=== PATIENT | female | born 1975 | race Caucasian/White ===

== ENCOUNTER 2019-12-06 00:57 | Day surgery (SDC) | payer OTHER, SELFPAY ==
[2019-11-24 10:38] VITALS: BMI 28.8
[2019-12-06] VITALS (10 sets, daily range): BP systolic 85–129; BP diastolic 46–85; PULSE 58–76; RESP 10–20; TEMP 36.2–36.8; O2SAT 94–99
--- NOTE | 2019-12-06 07:30 | WPDHPUPDATE1 ---
History and Physical Update Update Date/Time: 12/06/19 07:30 History and Physical has been reviewed, including an updated exam of the patient. There are NO changes in the patient's condition. Risks, benefits, and alternatives have been discussed and questions answered. Patient agrees to proceed with procedure.
[2019-12-06] MEDS: LACTATED RINGERS 1,000 ML 30 ML IV CONT ×2 (11:55→14:53)
--- NOTE | 2019-12-06 12:01 | P.PNAN_ITS ---
Anes - Initial Pre Proc Eval Procedure: Operation Date: 12/06/19 13:30 Proposed Procedures p Left Knee Arthroscopy, Proceed As Indicated - Cecil Polo MD Date/Time: 12/06/19 12:01 Surgeon: Cecil Polo MD Pre Op Diagnosis: Lt Medial Meniscus Posterior Horn Derangement Patient Data Age: 44 Gender: F Height: 5 ft 4 in Weight: 79.3 kg Allergies Allergy/AdvReac Type Severity Reaction Status Date / Time erythromycin base Allergy Mild Flushing Verified 12/06/19 11:34 MACROLIDES Allergy Severe Hives Uncoded 12/06/19 11:34 Home Medications Medication Instructions Recorded Confirmed Type cholecalciferol (vitamin D3) 1,250 1,250 mcg PO WEEKLY 11/15/19 12/06/19 History mcg (50,000 unit) tablet Ds-[id number] 2 ml SUBLINGUAL BID 11/24/19 History albuterol sulfate 2.5 mg INHALATION DIRECTED PRN 11/24/19 12/06/19 History ondansetron HCl 8 mg PO Q8H PRN 11/24/19 11/24/19 History progesterone micronized 100 mg 200 mg PO QPM #60 cap 11/27/19 12/06/19 Rx capsule Patient hx anesthesia problems: none Family hx anesthesia problems: none PMFSH Past Medical History Medical History Anxiety Chronic nausea COPD (chronic obstructive pulmonary disease) PUD (peptic ulcer disease) Family History Family History Grandparent Diabetes mellitus Hypertension Family history of cardiovascular disease Cerebrovascular accident Family history of neuropathy Mother Hypertension Family history of cardiovascular disease Cerebrovascular accident Other Family history of arthritis Family history of seizure disorder Social History Social History Smoking status: Former smoker Second hand tobacco smoke exposure: No Alcohol intake: current Anes - Eval Final PreProcedure Day of Procedure 12/06/19 12:01 Patient weight: obese Heart: regular rate and rhythm Lungs: clear to auscultation Airway: Mallampati scale class II Neurological: alert and oriented Last oral intake: >/= 8 hours ASA classification: III Emergent: no Anesthetic plan: proceed Anesthesia type and monitoring: general LMA and standard monitoring Informed Consent: The patient's anesthetic plan and its attendant risks and b enefits were discussed with the patient/family/POA. Questions were solicited and answers provided to the satisfaction of the patient/family/POA.
[2019-12-06] MEDS: CELECOXIB 200 MG CAPSULE PO (12:04)
--- NOTE | 2019-12-06 13:38 | SUR.PREOP ---
Up to bathroom.
[2019-12-06] MEDS: ceFAZolin 2 GM/D5W 50 ML 2 GM/50 ML BAG IVPB (13:49)
--- NOTE | 2019-12-06 14:53 | PM.OP ---
Procedure Note - Brief Procedure Note - Brief Date of procedure: 12/06/19 Pre-op diagnosis: Lt Medial Meniscus Posterior Horn Derangement Post-op diagnosis: other (chondromalcia patella and medial femoral condyle, chondral defect latreal trochlea left knee) Procedure performed: LEFT KNEE SCOPE WITH ABRASION ARTHROPLASTY AND CHONDROPLASTY Anesthesia: GETA Surgeon: Cecil Polo MD Estimated blood loss (mL): 10 Complications: No immediate complications Condition: stable Disposition: PACU
--- NOTE | 2019-12-06 18:01 | OP_ITS ---
DATE OF PROCEDURE: 12/06/2019 PREOPERATIVE DIAGNOSIS: Left knee medial meniscus tear, chondromalacia of the patella. POSTOPERATIVE DIAGNOSIS: Chondromalacia of the patella and chondromalacia of the medial femoral condyle and chondral defect of the left lateral trochlea. PROCEDURE: 1. Left knee arthroscopy with abrasion arthroplasty/microfracture of left lateral femoral condyle/trochlea. 2. Chondroplasty of the medial femoral condyle. ANESTHESIA: General. COMPLICATION: None. INDICATIONS: This is a 44-year-old female, who has a long history of left knee pain. She has had problems in the past with her patella, now her pain was found to be in the medial compartment and in the patellofemoral region. She was unable to acquire an MRI due to financial reasons, so diagnostic arthroscopy was scheduled. This was after multiple attempts of controlling her pain nonoperatively such as with medications and physical therapy. DESCRIPTION OF PROCEDURE: The patient was taken to the operating room in stable condition and placed in supine position. General anesthesia was induced and the left lower extremity was prepped and draped sterilely from the toes to the thigh. Superomedial portal used for an outflow cannula. Inferolateral portal was used for the camera. The camera was introduced. There was grade 3 chondromalacia to the patella. There was no significant chondromalacia in the trochlear groove, but just posterior to the lateral trochlea, there was a large chondral defect. The medial compartment was entered. There was grade 3 chondromalacia to the medial femoral condyle. There was no tear to the medial meniscus. The ACL was identified and it was intact. The lateral compartment was entered. There was no significant chondromalacia to the lateral compartment and there was no lateral meniscus tear. We returned to the medial compartment and then a medial portal was performed and a shaver was entered into the medial compartment and a chondroplasty was performed of the medial femoral condyle until there was a smooth cartilage, and then the meniscus was checked once again and there was no tear apparent to the medial meniscus. Next, then attention was taken to the patella and the patella underwent chondroplasty until there was a nice smooth surface. Next, the edges of the chondral defect on the lateral trochlea/femoral condyle was debrided with a shaver and then a [place] pick was entered and an abrasion arthroplasty was performed until there was good bleeding bone observed. Multiple holes were performed. Once that was performed then the knee joint was irrigated thoroughly. The wounds were approximated 4 nylon suture. Sterile dressing was applied. The patient then was extubated. Susana I MT: [place]
== END 2019-12-06 17:20 | disposition home or self-care (01) ==
PROVIDERS: PCP Family Medicine; Visit Provider Orthopaedic Surgery
PROC: (CPT 29870; principal; 2019-12-06 13:30)
DX: M94.262 Chondromalacia, left knee (principal); M94.8X6 Other specified disorders of cartilage, lower leg; J44.9 Chronic obstructive pulmonary disease, unspecified; K27.9 Peptic ulcer, site unspecified, unspecified as acute or chronic, without hemorrhage or perforation; F41.9 Anxiety disorder, unspecified; R11.0 Nausea; Z87.891 Personal history of nicotine dependence; E66.9 Obesity, unspecified; Z68.30 Body mass index [BMI] 30.0-30.9, adult
CPT/HCPCS: 29879; A9270; J0690; J1100; J2250; J2405; J2704; J3010; J7120

== ENCOUNTER 2021-02-20 14:56 | Outpatient (CLI) | payer OTHER, SELFPAY ==
--- NOTE | ~2021-02-20 | MM_ITS ---
EXAMINATION: MM screening grzegorz BI w saba HISTORY: Screening mammogram TECHNIQUE: Craniocaudal and mediolateral oblique 3-D tomosynthesis images were obtained and synthetic 2-D images were generated. CAD analysis was submitted and interpreted. COMPARISON: No prior mammogram is available for comparison at this institution. BREAST PARENCHYMAL COMPOSITION: There are scattered areas of fibroglandular density. FINDINGS: There is no evidence of suspicious mass, calcification, or architectural distortion to sugg est malignancy in either breast. There has been no suspicious interval change. IMPRESSION: 1. No mammographic evidence of malignancy. 2. Recommend routine screening mammography in one year. BI-RADS Category 1: Negative Reviewed, dictated and finalized at location A.
== END 2021-02-20 14:57 | disposition home or self-care (01) ==
PROVIDERS: PCP Family Medicine; Visit Provider Family Medicine
DX: Z12.31 Encounter for screening mammogram for malignant neoplasm of breast (principal)
CPT/HCPCS: 77063; 77067

== ENCOUNTER 2021-02-24 14:10 | Outpatient (CLI) | payer OTHER, SELFPAY ==
--- NOTE | ~2021-02-24 | CT_ITS ---
EXAMINATION:CT diagnostic chest w con DATE: 02/24/2021 15:16 INDICATION: Pulmonary nodule. TECHNIQUE: Computed tomography (CT) of the chest was performed with 75 mL Omnipaque 350 intravenous c ontrast. Automated exposure control and iterative reconstruction technique were employed. The dose-le ngth product (DLP) was 247.14 mGy-cm. COMPARISON: None. FINDINGS: There is mild scarring at the lung apices. There is a 3 mm nodule in left lower lobe. There is a 3 mm nodule in right upper lobe. No pleural effusion. The heart size is normal. No pericardial effusion. There are changes of cholecystectomy. There is mild thoracic spondylosis. IMPRESSION: 1. Small pulmonary nodules, likely benign. Reviewed, dictated and finalized at location A.
== END 2021-02-24 14:11 ==
PROVIDERS: Visit Provider Surgery
DX: R91.8 Other nonspecific abnormal finding of lung field (principal)
CPT/HCPCS: 71260; Q9967

== ENCOUNTER → 2021-03-08 00:28 | Outpatient (CLI) | payer OTHER, SELFPAY ==
[2021-03-08 19:43] LABS: SARS-CoV-2 RNA PCR Negative
== END ==
PROVIDERS: Visit Provider Surgery
DX: Z01.812 Encounter for preprocedural laboratory examination (principal); Z20.822 Contact with and (suspected) exposure to COVID-19
CPT/HCPCS: C9803; U0003; U0005

== ENCOUNTER 2021-03-12 02:58 | Day surgery (SDC) | payer OTHER, SELFPAY ==
[2021-02-27 15:05] VITALS: BMI 26.8
--- NOTE | 2021-03-11 15:24 | WPDANESEPPF ---
Anes - Initial Pre Proc Eval Procedure: Operation Date: 03/12/21 13:30 Proposed Procedures p Excisional Biopsy Of Right Upper Quadrant Subcutaneous Mass, Excisional Biopsy Left Breast Mass - Chloe Lara MD Date/Time: 03/11/21 15:24 Surgeon: Chloe Lara MD Pre Op Diagnosis: right upper quadrant subq mass Patient Data Age: 45 Gender: F Height: 1.63 m Weight: 70.9 kg Allergies Allergy/AdvReac Type Severity Reaction Status Date / Time erythromycin base Allergy Mild Flushing Verified 02/27/21 14:57 hydromorphone [From Dilaudid] Allergy Flushing, Verified 02/27/21 14:58 HIVES, N/V MACROLIDES Allergy Severe Hives Uncoded 02/27/21 14:57 Home Medications Medication Instructions Recorded Confirmed Type Ds-E1e2 2 ml SUBLINGUAL BID 11/24/19 02/27/21 History albuterol sulfate 2.5 mg INHALATION DIRECTED PRN 11/24/19 02/27/21 History aspirin 325 mg PO DAILY #14 tablet 12/06/19 02/27/21 Rx esterified estrogens 1 tab-cap PO HS 05/03/20 02/27/21 History testosterone undecanoate See Rx Instructions .ROUTE .COMPLEX 05/03/20 02/20/21 History permethrin 5 % topical cream 1 applic TOPICAL ONCE #60 gm 07/10/20 02/27/21 Rx progesterone micronized 100 mg 200 mg PO QPM #60 cap 12/03/20 02/27/21 Rx capsule cholecalciferol (vitamin D3) 1,250 1,250 mcg PO MONTHLY #14 tablet 12/05/20 02/27/21 Rx mcg (50,000 unit) tablet phentermine 37.5 mg capsule 37.5 mg PO DAILY #30 cap 01/17/21 02/27/21 Rx cetirizine 10 mg capsule 10 mg PO DAILY PRN 02/10/21 02/27/21 History ondansetron HCl 8 mg tablet 8 mg PO Q8H PRN #20 tablet 02/11/21 02/27/21 Rx vitamin Q95-[id number] B1 1 ml IM WEEKLY 02/27/21 02/27/21 History Patient hx anesthesia problems: none Family hx anesthesia problems: none PMFSH Past Medical History Medical History Anxiety Chronic nausea COPD (chronic obstructive pulmonary disease) PUD (peptic ulcer disease) Weight gain Surgical History Surgical History H/O: hysterectomy History of cholecystectomy History of knee surgery Family History Family History Grandparent Diabetes mellitus Hypertension Family history of cardiovascular disease Cerebrovascular accident Family history of neuropathy Mother Hypertension Family history of cardiovascular disease Cerebrovascular accident Uterine cancer Father Diabetes mellitus Heart disease Cerebrovascular accident Hypertension Other Family history of arthritis Family history of seizure disorder Social History Social History Smoking status: Former smoker Tobacco type: cigarettes Second hand tobacco smoke exposure: No Additional smoking assessment comments: STATES [employer] FOR 7 YEARS, 1PK EVERY 2-3 WEEKS, QUIT 2010 Alcohol intake: current Substance use: never Substance use type: does not use Living arrangements: with family Spiritual care concerns: No Anes - Eval Final PreProcedure Day of Procedure 03/11/21 15:24 Patient weight: overweight Heart: regular rate and rhythm Lungs: clear to auscultation and normal air movement Airway: Mallampati scale class II Neurological: alert and oriented Last oral intake: >/= 8 hours ASA classification: III Emergent: no Anesthetic plan: proceed Anesthesia type and monitoring: general LMA Informed Consent: The patient's anesthetic plan and its attendant risks and benefits were discussed with the patient/family/POA. Questions were solicited and answers provided to the satisfaction of the patient/family/POA.
[2021-03-12] VITALS (9 sets, daily range): BP systolic 104–128; BP diastolic 61–89; PULSE 75–100; RESP 12–20; TEMP 36.3–36.6; O2SAT 96–100
[2021-03-12] MEDS: LACTATED RINGERS 1,000 ML 30 ML IV CONT (12:21)
[2021-03-12] MEDS: ONDANSETRON INJ 4 MG/2 ML VIAL IV PUSH (12:22)
--- NOTE | 2021-03-12 12:54 | WPDHPUPDATE1 ---
History and Physical Update Update Date/Time: 03/12/21 12:54 History and Physical has been reviewed, including an updated exam of the patient. There are NO changes in the patient's condition. Risks, benefits, and alternatives have been discussed and questions answered. Patient agrees to proceed with procedure. Pt also notes new, painful mass in epigastrium. Mass is approx 2x2 cm and TTP. Pt would like excision of this area and I have agreed to proceed.
[2021-03-12] MEDS: ceFAZolin 2 GM/D5W 50 ML 2 GM/50 ML BAG IVPB (13:22)
[2021-03-12] MEDS: LIDO 1%/EPINEPHRINE 1:100,000 50 ML VIAL 30 ML INFILTRATE (13:30)
--- NOTE | 2021-03-12 14:22 | PM.PROC ---
Procedure Note - Detailed Date of procedure: 03/12/21 Pre-op diagnosis: right upper quadrant subq mass Left breast mass, right upper quadrant abdominal wall subcutaneous mass, epigastric abdominal wall subcutaneous mass Post-op diagnosis: same Procedure performed: excisional biopsy left breast mass measuring approximately 2 x 1 cm, right upper quadrant abdominal wall subcutaneous mass measuring approximately 3 x 2 cm, epigastric abdominal wall subcutaneous mass measuring approximately 2 x 1 cm Description of procedure: The patient was taken to the operating room placed in the supine position. After induction of general anesthesia, the patient was prepped and draped in the normal sterile fashion. Time-out was then done to verify patient's identity, as well as the procedure being performed. I began by localizing the areas over all 3 of these masses. I began in the left breast by making an incision over this mass which was located at approximately the 4 o'clock position. This was easily palpable and noted to be just under the dermis. Upon making the incision through the dermis, I was able to locate this mass that looked to be a lipoma. It measured approximately 2 x 1 cm. I was able to excise this full. Once fully excised, I gained hemostasis with the Bovie cautery. I then closed the incision with 4 Monocryl subcuticular suture. I then made an incision over the mass in the right upper quadrant. Again just under the dermis there was a well-circumscribed mass in the subcutaneous tissue that measured approximately 3 x 2 cm. This was again excised in full and looked to be a lipoma. Hemostasis was gained with Bovie cautery and the incision was closed with 4 O Monocryl subcuticular suture. I then made an incision over the epigastric mass. Was carried down through the dermis into the subcutaneous tissue. This looked to be a multilobular lipoma the largest of which measured approximately 2 x 1 cm. This area was fully excised and hemostasis was gained with Bovie cautery. I then closed this incision with 4 Monocryl subcuticular suture. Dermabond was placed on all wounds. The patient tolerated these procedures well and was extubated in the operating room postop. She will be sent to the recovery room in stable condition. Anesthesia: GLMA and local Surgeon: Chloe Lara MD Estimated blood loss (mL): 10 Drains: No Packing: No Pathology: yes Complications: No immediate complications Condition: stable Disposition: PACU Findings: multiple subcutaneous masses as noted above most likely lipoma
[2021-03-12] MEDS: fentaNYL CITRATE INJ (*CRX) 100 MCG/2 ML VIAL 25 MCG IV PUSH ×4 (14:29→14:53)
[2021-03-12] MEDS: oxyCODONE HCL (*CRX) 5 MG TAB IR PO (15:39)
== END 2021-03-12 16:16 | disposition home or self-care (01) ==
PROVIDERS: PCP Family Medicine; Visit Provider Surgery
PROC: (CPT 21555; principal; 2021-03-12 13:30)
DX: D17.1 Benign lipomatous neoplasm of skin and subcutaneous tissue of trunk (principal); J44.9 Chronic obstructive pulmonary disease, unspecified; K27.9 Peptic ulcer, site unspecified, unspecified as acute or chronic, without hemorrhage or perforation; F41.9 Anxiety disorder, unspecified; Z87.891 Personal history of nicotine dependence; Z79.51 Long term (current) use of inhaled steroids; Z79.82 Long term (current) use of aspirin
CPT/HCPCS: 21555; 22903; 22902; 88304; 88307; A9270; C9803; J0690; J1100; J2250; J2405; J2704; J3010; J7120; U0003; U0005

== ENCOUNTER → 2021-03-28 08:27 | Outpatient (CLI) | payer OTHER, SELFPAY ==
--- NOTE | ~2021-03-28 | CT_ITS ---
EXAMINATION: CT abdomen wo con EXAM DATE: 03/28/2021 08:39 INDICATION: K43.2 - Incisional hernia without obstruction or gangrene . Nausea, constipation. 2 abdom inal mass is removed 2 weeks ago. TECHNIQUE: Spiral CT of the abdomen was performed without contrast. Axial, coronal and sagittal marcelo ges of the abdomen were reviewed. The dose-length product (DLP) for this examination was 422.86 mGy- cm. The exposure was tailored according to patient size (auto mA exposure control), and iterative re construction (ASIR) was used as additional dose reduction technique. There is no prior study for com leonel. FINDINGS: There are 2 regions of induration along the upper abdomen, could be locations of mass resec tions given history provided above. No abdominal wall hernia. The liver, spleen, adrenal glands and pancreas are unremarkable. Gallbladder not identified, patient likely has had cholecystectomy. Ther e is no nephrolithiasis or hydronephrosis. There is no retroperitoneal lymphadenopathy. The stomach and small bowel are unremarkable. There is expected amount of colonic stool. No free i ntraperitoneal gas. The heart is normal in size. There are no pericardial or pleural effusions. T he lung bases are unremarkable. The bones are unremarkable. IMPRESSION: Two regions of anterior upper abdominal subcutaneous induration, probably surgical sites. Reviewed, dictated and finalized at location B. IMPRESSION: Two regions of anterior upper abdominal subcutaneous induration, pr obably surgical sites.
== END ==
PROVIDERS: Visit Provider Surgery
DX: K43.2 Incisional hernia without obstruction or gangrene (principal)
CPT/HCPCS: 74150

== ENCOUNTER 2021-04-04 09:29 | Outpatient (CLI) | payer OTHER, SELFPAY ==
[2021-04-04 19:58] LABS: Basophils Absolute Auto 0.1 K/mm3 (0.0-0.1); Basophils Percent Auto 1.6 % (0.2-1.2); Eosinophils Absolute Auto 0.3 K/mm3 (0-0.3); Eosinophils Percent Auto 5.2 % (0-4.4); Hematocrit 44.4 % (37.0-47.0); Hemoglobin 14.2 g/dL (12.0-15.0); Immature Granulocyte Absolute 0.03 K/mm3 (0.00-0.031); Immature Granulocyte Percent A 0.5 % (0-0.5); Lymphocytes Absolute Auto 2.02 K/mm3 (0.9-3.2); Lymphocytes Percent Auto 35.3 % (18.3-44.2); Mean Corpuscular Hemoglobin 27.3 pg (26-34); Mean Corpuscular Volume 85.4 fl (80-100); Mean Platelet Volume 10.9 fl (7.4-10.4); Monocytes Absolute Auto 0.5 K/mm3 (0.1-0.6); Neutrophils Absolute Auto 2.8 K/mm3 (1.3-6.7); Neutrophils Percent Auto 49.4 % (45.5-73.1); Platelet Count Result 290 k/mm3 (150-375); Red Cell Distribution Width 12.1 % (11.5-14.5); White Blood Count 5.7 K/mm3 (4.5-10.0)
[2021-04-04 20:02] LABS: Add Urine Microscopic? NO; Appearance Urine Clear (Clear); Bilirubin Urine Negative (Negative); Blood Urine Negative (Negative); Color Urine Yellow (Yellow); Glucose Urine UA Negative (Negative); Ketones Urine Negative (Negative); Leukocyte Esterase Ur Negative LEU/UL (Negative); Nitrate Urine Negative (Negative); Protein Urine Negative (Negative); Specific Grav Ur 1.014 (1.001-1.035); Urobilinogen Urine Negative mg/dL (<2.0)
[2021-04-04 20:27] LABS: Free T4 Free Thyroxine 1.05 ng/mL (0.78-2.19); Vitamin D 25 Hydroxy 39.2 ng/mL
[2021-04-04 20:55] LABS: Alanine Aminotransferase 17 U/L (4-35); Albumin Level 4.3 g/dL (3.5-5.1); Alkaline Phosphatase 77 U/L (38-126); Anion Gap 7 mmol/L (8-16); Aspartate Amino Transferase 22 U/L (14-36); Bilirubin,Total 0.5 mg/dL (0.2-1.3); Blood Urea Nitrogen 21 mg/dL (7-17); Carbon Dioxide 29 mmol/L (22-30); Chloride 105 mmol/L (98-107); Cholesterol 224 mg/dL (0-200); Estimated Glomerular Filt Rate 59; Glucose 101 mg/dL (65-105); HDL Direct 75 mg/dL; Sodium 141 mmol/L (137-145); Triglycerides 83 mg/dL (<150)
[2021-04-04 21:06] LABS: LDL Cholesterol Direct 111 mg/dL
[2021-04-04 22:03] LABS: Vitamin B12 > 1000.0 pg/mL (239-931)
[2021-04-10 10:02] LABS: T3 Reverse 12 ng/dL (8-25)
[2021-04-10 17:33] LABS: Estradiol, Ultrasensitive 3 pg/mL
[2021-04-10 17:59] LABS: Testosterone Free 1.5 pg/mL (0.1-6.4); Testosterone Total 10 ng/dL (2-45)
[2021-04-10 20:20] LABS: FSH 59.7 mIU/mL (***); Triiodothyronine T3 Free 3.3 pg/mL (2.3-4.2)
[2021-04-10 20:30] LABS: Progesterone 0.2 ng/mL (***)
== END 2021-04-04 09:30 | disposition home or self-care (01) ==
LOC: ANHBWCLAB 09:30
PROVIDERS: PCP Family Medicine; Visit Provider Family Medicine
DX: E28.39 Other primary ovarian failure (principal); E66.3 Overweight; Z79.899 Other long term (current) drug therapy; Z82.62 Family history of osteoporosis; N99.89 Other postprocedural complications and disorders of genitourinary system; Z98.51 Tubal ligation status; G25.81 Restless legs syndrome
CPT/HCPCS: 36415; 80053; 80061; 81003; 82306; 82607; 82670; 82746; 83001; 84144; 84402; 84403; 84439; 84443; 84481; 84482; 85025

== ENCOUNTER 2021-08-29 11:56 | Outpatient (CLI) | payer OTHER, SELFPAY ==
[2021-08-29 21:01] LABS: Vitamin B12 > 1000.0 pg/mL (239-931)
[2021-09-02 07:31] LABS: Progesterone 0.5 ng/mL (***)
[2021-09-02 22:47] LABS: Testosterone Total 13 ng/dL (2-45)
[2021-09-04 19:27] LABS: Estrogen 158.1 pg/mL
== END 2021-08-29 11:57 | disposition home or self-care (01) ==
LOC: ANHBWCLAB 11:58
PROVIDERS: PCP Family Medicine; Visit Provider Family Medicine
DX: E28.39 Other primary ovarian failure (principal); E53.8 Deficiency of other specified B group vitamins
CPT/HCPCS: 36415; 82607; 82672; 84144; 84403

== ENCOUNTER 2021-09-24 10:14 | Outpatient (CLI) | payer OTHER, SELFPAY ==
--- NOTE | ~2021-09-24 | XR_ITS ---
EXAMINATION: XR heel LT min 2V DATE: 09/24/2021 10:30 INDICATION: Medial left heel pain 2 months post injury with laceration. TECHNIQUE: Axial and lateral views of the left calcaneus were obtained COMPARISON: None. FINDINGS: Bone alignment is normal. No fracture. Joint spaces are normal. No cortical erosions, periosteal reac tion or suspicious lytic or blastic bone lesions to suggest osteomyelitis. Soft tissues are unremarka ble. No radiopaque foreign bodies identified. IMPRESSION: 1. Negative left calcaneus radiographs. Reviewed, dictated and finalized at location A. ICATION LEAD
--- NOTE | ~2021-09-24 | XR_ITS ---
EXAMINATION: XR abdomen/kub 1V DATE: 09/24/2021 10:30 INDICATION: Bilateral lower abdominal pain. TECHNIQUE: A supine view of the abdomen was obtained. COMPARISON: CT abdomen 03/28/2021 FINDINGS: There are no dilated loops of bowel. There is a moderate volume of stool in the colon. Surg ical clips in the right upper quadrant are likely from cholecystectomy. There are phleboliths in the pelvis. IMPRESSION: 1. Normal bowel gas pattern. Reviewed, dictated and finalized at location A. GN ENGINEERING INTERN
[2021-09-24 19:48] LABS: Add Urine Microscopic? YES; Appearance Urine Clear (Clear); Bacteria Urine Trace /hpf; Bilirubin Urine Negative (Negative); Blood Urine 1+ (Negative); Color Urine Straw (Yellow); Glucose Urine UA Negative (Negative); Ketones Urine Negative (Negative); Leukocyte Esterase Ur 2+ LEU/UL (NEGATIVE); Mucus Urine Rare /lpf; Nitrate Urine Negative (Negative); Protein Urine Negative (Negative); RBC Urine 0-2 /hpf (0-2); Specific Grav Ur 1.008 (1.001-1.035); Squamous Epithelial Cell Urine Few /hpf (Few); Urobilinogen Urine Negative mg/dL (<2.0); WBC Urine 0-3 /hpf (0-3)
== END 2021-09-24 10:15 | disposition home or self-care (01) ==
LOC: ANHBWCLAB 10:17
PROVIDERS: PCP Family Medicine; Visit Provider Family Medicine
DX: M79.673 Pain in unspecified foot (principal); N39.0 Urinary tract infection, site not specified; R10.2 Pelvic and perineal pain
CPT/HCPCS: 73650; 74018; 81001; 87077; 87086; 87088

== ENCOUNTER 2021-10-09 07:51 | Outpatient (RCR) | payer OTHER, SELFPAY ==
[2021-10-09 10:12] VITALS: BP 122/85; PULSE 86; TEMP 37.1; O2SAT 97
[2021-10-09] MEDS: diphenhydrAMINE HCl CAP 25 MG CAPSULE PO (10:14)
[2021-10-09] MEDS: ACETAMINOPHEN 325 MG TABLET 650 MG PO (10:14)
[2021-10-09] MEDS: FAMOTIDINE 20 MG TABLET PO (10:14)
[2021-10-09 11:50] VITALS: BP 123/87
--- NOTE | 2021-10-10 09:02 | PC.NURSE ---
Called Ms Fagan and she stated she is feeling like she is swimming in fluid and having trouble breathing and is still coughing a lot. She said she called her PCP yesterday but he is on vacation and has no one covering him. I told her she needs to go to the ER, and she verbalized the understanding. She has no other questions at this time.
== END 2021-10-09 17:00 ==
LOC: AMCINF 07:51
PROVIDERS: PCP Family Medicine; Visit Provider Internal Medicine Hematology & Oncology
DX: U07.1 COVID-19 (principal); J44.9 Chronic obstructive pulmonary disease, unspecified
CPT/HCPCS: A9270; M0243; Q0244

== ENCOUNTER 2021-10-27 09:03 | Outpatient (CLI) | payer OTHER, SELFPAY ==
[2021-10-27 20:24] LABS: Lipase 155 U/L (23-300)
== END 2021-10-27 09:04 | disposition home or self-care (01) ==
LOC: ANHBWCLAB 09:05
PROVIDERS: PCP Family Medicine; Visit Provider Family Medicine
DX: R10.9 Unspecified abdominal pain (principal); R10.2 Pelvic and perineal pain; R11.0 Nausea
CPT/HCPCS: 36415; 83690

== ENCOUNTER → 2022-01-09 04:58 | Outpatient (CLI) | payer OTHER, SELFPAY ==
[2022-01-09 11:35] LABS: Influenza A QL RT-PCR Negative (Negative); Influenza B QL RT-PCR Negative (Negative); SARS-CoV-2 RNA PCR Negative
== END ==
PROVIDERS: PCP Family Medicine; Visit Provider Family Medicine
DX: R05.8 Other specified cough (principal); R50.9 Fever, unspecified; R91.1 Solitary pulmonary nodule; J44.9 Chronic obstructive pulmonary disease, unspecified; Z20.822 Contact with and (suspected) exposure to COVID-19
CPT/HCPCS: 87502; C9803; U0003; U0005

== ENCOUNTER 2022-01-13 09:38 | Outpatient (CLI) | payer OTHER, SELFPAY ==
--- NOTE | ~2022-01-13 | XR_ITS ---
EXAMINATION: XR chest 2V 01/13/2022 09:49 INDICATION: COPD. Shortness of breath. PROCEDURE: 2 view chest COMPARISON: 01/29/2010 FINDINGS: The lungs are clear. The cardiomediastinal silhouette is within normal limits. There are no pleural effusions. There is no pneumothorax suspected. IMPRESSION: 1: NO ACUTE CARDIOPULMONARY DISEASE. Reviewed, dictated and finalized at location A.
== END 2022-01-13 09:39 | disposition home or self-care (01) ==
PROVIDERS: PCP Family Medicine; Visit Provider Family Medicine
DX: J44.9 Chronic obstructive pulmonary disease, unspecified (principal); J06.9 Acute upper respiratory infection, unspecified
CPT/HCPCS: 71046

== ENCOUNTER 2022-05-27 09:06 | Outpatient (CLI) | payer OTHER, SELFPAY ==
[2022-05-27 20:57] LABS: Add Urine Microscopic? YES; Appearance Urine Cloudy (Clear); Bilirubin Urine Negative (Negative); Blood Urine 3+ (Negative); Color Urine Red (Yellow); Glucose Urine UA Negative (Negative); Ketones Urine Negative (Negative); Leukocyte Esterase Ur 1+ LEU/UL (NEGATIVE); Nitrate Urine Negative (Negative); Protein Urine 1+ mg/dL (Negative); Specific Grav Ur 1.015 (1.001-1.035); Urobilinogen Urine 0.2 mg/dL (<2.0); pH Urine 6.5 (5.0-9.0)
[2022-05-27 21:09] LABS: Bacteria Urine Trace /hpf; Mucus Urine Rare /lpf; RBC Urine >75 /hpf (0-2); Squamous Epithelial Cell Urine Occasional /hpf (Few); WBC Urine 16-20 /hpf (0-3)
[2022-05-27 21:10] LABS: Hematocrit 46.2 % (37.0-47.0); Hemoglobin 13.8 g/dL (12.0-15.0); Mean Corpuscular HGB Conc 29.9 g/dl (32-36); Mean Corpuscular Hemoglobin 24.9 pg (26-34); Mean Corpuscular Volume 83.2 fl (80-100); Platelet Count Result 285 k/mm3 (150-375); Red Blood Count 5.55 M/mm3 (4.2-5.4); Red Cell Distribution Width 14.4 % (11.5-14.5); White Blood Count 5.6 K/mm3 (4.5-10.0)
[2022-05-27 21:50] LABS: Alanine Aminotransferase 20 U/L (6-35); Albumin Level 4.5 g/dL (3.5-5.1); Alkaline Phosphatase 74 U/L (38-126); Anion Gap 11 mmol/L (8-16); Aspartate Amino Transferase 40 U/L (14-36); Bilirubin,Total 0.3 mg/dL (0.2-1.3); Blood Urea Nitrogen 16 mg/dL (7-17); Calcium 9.5 mg/dL (8.4-10.2); Carbon Dioxide 27 mmol/L (22-30); Chloride 101 mmol/L (98-107); Cholesterol 210 mg/dL (0-200); Estimated Glomerular Filt Rate > 60; Glucose 83 mg/dL (65-110); HDL Direct 62 mg/dL; Potassium 3.9 mmol/L (3.4-5.0); Sodium 139 mmol/L (137-145); Triglycerides 182 mg/dL (<150)
[2022-05-27 22:01] LABS: LDL Cholesterol Direct 104 mg/dL
[2022-05-30 11:24] LABS: Progesterone 0.3 ng/mL (***)
[2022-06-01 09:30] LABS: Testosterone Total 9 ng/dL (2-45)
[2022-06-02 15:46] LABS: Estrogen 114.9 pg/mL
[2022-06-05 03:56] LABS: Estradiol, Ultrasensitive 2 pg/mL
== END 2022-05-27 09:07 | disposition home or self-care (01) ==
PROVIDERS: PCP Family Medicine; Visit Provider Family Medicine
DX: E28.39 Other primary ovarian failure (principal); R31.9 Hematuria, unspecified; Z00.00 Encounter for general adult medical examination without abnormal findings
CPT/HCPCS: 36415; 80053; 80061; 81001; 82670; 82672; 84144; 84402; 84403; 85027

== ENCOUNTER 2022-05-27 12:44 | Outpatient (CLI) | payer OTHER, SELFPAY ==
--- NOTE | ~2022-05-27 | CT_ITS ---
EXAMINATION: CT abdomen pelvis w con DATE: 05/27/2022 13:08 INDICATION: Left lower quadrant abdominal pain. Gastrointestinal bleeding. TECHNIQUE: Computed tomography (CT) of the abdomen and pelvis was performed with 100 mL Omnipaque-300 intravenous contrast. Automated exposure control and iterative reconstruction technique were employe d. The dose-length product was 529.25 mGy-cm. COMPARISON: 03/28/2021 FINDINGS: Lung bases are clear. Heart size is normal. No pericardial or pleural effusion. Cholecystectomy clips at gallbladder fossa. Liver, pancreas, spleen, bilateral adrenal glands and and left kidney are norm al. Lateral film unchanged 1.5 cm cyst at the upper pole of the right kidney. There are few scattered clonic diverticula without adjacent inflammatory change to suggest diverticulitis. Small bowel and a ppendix are normal. Bladder is normal. The uterus is not identified and has likely been surgically re sected. No free intraperitoneal gas or fluid. Bones are unremarkable. IMPRESSION: 1. Mild diverticulosis. No acute intra-abdominal/pelvic process. Reviewed, dictated and finalized at location A.
== END 2022-05-27 12:45 | disposition home or self-care (01) ==
PROVIDERS: PCP Family Medicine; Visit Provider Family Medicine
DX: R10.32 Left lower quadrant pain (principal); K57.90 Diverticulosis of intestine, part unspecified, without perforation or abscess without bleeding
CPT/HCPCS: 74177; Q9967

== ENCOUNTER 2022-07-16 15:11 | Emergency (ER) | payer OTHER, SELFPAY ==
--- NOTE | 2022-07-16 15:13 | ED.SKABFB ---
HPI - Skin/Abscess/Foreign Bdy General Chief complaint: Skin/Abscess/Foreign Body Stated complaint: Hives all over Time Seen by Provider: 07/16/22 15:13 Source: patient and RN notes reviewed History of Present Illness HPI narrative: Patient is a 47-year-old female who presents the urgent care with complaints of hives all over. Patient states on July 03 she was hiking and she was covered in tick bites especially to the lower half of her body. Patient states she saw Dr. Lemos and she was given exactly 2 doses of doxycycline and placed on prednisone until the . Patient states that she woke up in hives again which improved with Benadryl and hydroxyzine. Patient states that today she now has a hives all over and is experience a headache, nausea, extreme fatigue, heavy arms and overall just not feeling well . It was verified with patient's pharmacy that she did in fact get only 2 tablets of doxycycline. Patient appears very fatigued but otherwise no acute distress noted. Patient aware of the plan of care. Some parts of this dictation were generated by voice recognition software and may contain typographical and/or grammatical inaccuracies. Related Data Home Medications Medication Instructions Recorded Confirmed aspirin 325 mg tablet 325 mg PO DAILY 06/24/22 06/24/22 Allergies Allergy/AdvReac Type Severity Reaction Status Date / Time erythromycin base Allergy Mild Flushing Verified 07/16/22 15:26 hydromorphone [From Dilaudid] Allergy Rash Verified 07/16/22 15:26 MACROLIDES Allergy Severe Hives Uncoded 07/16/22 15:26 Review of Systems Review of Systems: CONSTITUTIONAL: Denies fever, chills, or sweats. EYES: Denies visual changes, redness, or discharge. ENT: Denies rhinorrhea, congestion, sore throat, or otalgia. CARDIOVASCULAR: Denies chest pain, palpitations, or edema. RESPIRATORY: Denies cough or dyspnea. GASTROINTESTINAL: Reports of nausea GENITOURINARY: Denies dysuria or hematuria. SKIN: Reports of itchy raised hives all over MUSCULOSKELETAL: Denies back pain, joint pain. Reports of body aches NEUROLOGIC: Reports of extreme weakness All other systems reviewed are negative, except as documented in HPI. [facility] Past Medical History Medical History (Updated 07/16/22 @ 15:37 by Candi E. Springman, INTAKE RN) Abdominal pain Abdominal pain Acute pharyngitis, unspecified Animal scabies Ankle sprain Anxiety B12 deficiency Breast mass, left Bronchitis Chronic nausea Contact dermatitis COPD (chronic obstructive pulmonary disease) COVID-19 Encounter for surgical aftercare following surgery on the skin and subcutaneous tissue Family history of osteoporosis Fever Heel pain Hypoestrogenism Incisional hernia Left ankle pain Left ankle sprain Left knee pain Lipoma Lung nodule Mass of skin of abdomen MCL sprain of left knee Medial meniscus, posterior horn derangement Nausea Nausea Other residential (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 Overweight Pelvic pain Preventative health care Productive cough PUD (peptic ulcer disease) Strep throat Suprapubic pain, acute Umbilical pain URI (upper respiratory infection) UTI (urinary tract infection) Weight gain Surgical History Surgical History H/O excision of mass 03/12/21 excisional biopsy left breast mass measuring approximately 2 x 1 cm, right upper quadrant abdominal wall subcutaneous mass measuring approximately 3 x 2 cm, epigastric abdominal wall subcutaneous mass measuring approximately 2 x 1 cm H/O: hysterectomy History of abdominal surgery History of cholecystectomy History of knee surgery History of surgery cervix removed Family History Family History Grandparent Diabetes mellitus Hypertension Family history of cardiovascular disease Cerebrovascular accident Family history of neuropathy Mother Hypertension Family history of cardiovascular disease Cerebrovascul
[2022-07-16 15:15] VITALS: BP 131/87; PULSE 91; RESP 16; TEMP 36.8; O2SAT 99
== END 2022-07-16 15:31 | disposition short-term general hospital (02) ==
PROVIDERS: Emergency Provider Nurse Practitioner Family; PCP Family Medicine
DX: S80.862D Insect bite (nonvenomous), left lower leg, subsequent encounter (principal); S80.861D Insect bite (nonvenomous), right lower leg, subsequent encounter; W57.XXXD Bitten or stung by nonvenomous insect and other nonvenomous arthropods, subsequent encounter; R11.0 Nausea; R51.9 Headache, unspecified; R53.83 Other fatigue; Z87.891 Personal history of nicotine dependence; J44.9 Chronic obstructive pulmonary disease, unspecified; Z86.16 Personal history of COVID-19; Z79.82 Long term (current) use of aspirin
CPT/HCPCS: 99212; G0463

== ENCOUNTER 2022-07-16 16:02 | Emergency (ER) | payer OTHER, SELFPAY ==
[2022-07-16] VITALS (13 sets, daily range): BP systolic 120–155; BP diastolic 68–93; PULSE 77–99; RESP 18; TEMP 36.1; O2SAT 98–100
--- NOTE | ~2022-07-16 | XR_ITS ---
XR chest 2V DATE: 07/16/2022 16:44 INDICATION: Fatigue, weakness for one week. Previously bitten by 6. History of COPD. TECHNIQUE: PA and lateral views COMPARISON: 01/13/2022 PA and lateral chest FINDINGS: Normal heart size. No hilar or mediastinal enlargement. No pulmonary infiltrate or consolid ation, pleural effusion or pulmonary vascular congestion or pneumothorax. Status post cholecystectomy. Included skeletal structures are unremarkable. IMPRESSION: No active cardiopulmonary disease or significant change since 01/13/2022 Reviewed, dictated and finalized at location B. IMPRESSION: No active cardiopulmonary disease or significant change since 2021
[2022-07-16 17:01] LABS: Basophils Percent Auto 0.4 % (0.2-1.2); Eosinophils Absolute Auto 0.2 K/mm3 (0-0.3); Eosinophils Percent Auto 2.2 % (0-4.4); Hematocrit 40.7 % (37.0-47.0); Immature Granulocyte Absolute 0.03 K/mm3 (0.00-0.031); Immature Granulocyte Percent A 0.3 % (0-0.5); Lymphocytes Absolute Auto 2.62 K/mm3 (0.9-3.2); Lymphocytes Percent Auto 25.9 % (18.3-44.2); Mean Corpuscular HGB Conc 31.9 g/dl (32-36); Mean Corpuscular Hemoglobin 25.7 pg (26-34); Mean Corpuscular Volume 80.4 fl (80-100); Mean Platelet Volume 9.8 fl (7.4-10.4); Monocytes Absolute Auto 0.4 K/mm3 (0.1-0.6); Monocytes Percent Auto 3.8 % (2.6-8.5); Neutrophils Absolute Auto 6.8 K/mm3 (1.3-6.7); Neutrophils Percent Auto 67.4 % (45.5-73.1); Platelet Count Result 313 k/mm3 (150-375); Red Blood Count 5.06 M/mm3 (4.2-5.4); White Blood Count 10.1 K/mm3 (4.5-10.0)
[2022-07-16 17:14] LABS: Alanine Aminotransferase 21 U/L (6-35); Albumin Level 4.3 g/dL (3.5-5.1); Alkaline Phosphatase 86 U/L (38-126); Anion Gap 8 mmol/L (8-16); Aspartate Amino Transferase 24 U/L (14-36); Bilirubin,Total 0.3 mg/dL (0.2-1.3); Blood Urea Nitrogen 17 mg/dL (7-17); Calcium 8.9 mg/dL (8.4-10.2); Carbon Dioxide 25 mmol/L (22-30); Chloride 105 mmol/L (98-107); Estimated CRCL calculation 61 ml/min; Estimated Glomerular Filt Rate 59; Glucose 101 mg/dL (65-110); Potassium 3.7 mmol/L (3.4-5.0); Sodium 138 mmol/L (137-145)
--- NOTE | 2022-07-16 17:24 | ED.GENADULT ---
HPI - General Adult General Chief complaint: Unspecified Stated complaint: to ED from urgent care for s/p tick bite Time Seen by Provider: 07/16/22 16:53 History of Present Illness HPI narrative: 47-year-old female presents to the emergency room complaints of rash to her torso, nausea and generalized fatigue. Patient states [place] tick bites. Patient states that she pulled over 100 seed takes off of her body. Was seen in her primary care office 3 days later and was given 2 doses of doxycycline for prevention and began taking a 5-day course of prednisone and hydroxyzine for rash. Patient states that she stopped taking the prednisone 3 days ago, and has noticed a return of the rash to her torso and increased fatigue. Patient states that she has been taking Benadryl and hydroxyzine intermittently for the past couple of days for the itching. Related Data Home Medications Medication Instructions Recorded Confirmed aspirin 325 mg tablet 325 mg PO DAILY 06/24/22 07/16/22 Allergies Allergy/AdvReac Type Severity Reaction Status Date / Time erythromycin base Allergy Mild Flushing Verified 07/16/22 15:26 hydromorphone [From Dilaudid] Allergy Rash Verified 07/16/22 15:26 MACROLIDES Allergy Severe Hives Uncoded 07/16/22 15:26 Review of Systems Review of Systems: CONSTITUTIONAL: Denies fever, chills, or sweats. EYES: Denies visual changes, redness, or discharge. ENT: Denies rhinorrhea, congestion, sore throat, or otalgia. CARDIOVASCULAR: Denies chest pain, palpitations, or edema. RESPIRATORY: Denies cough or dyspnea. GASTROINTESTINAL: Denies abdominal pain, nausea, vomiting, or diarrhea. GENITOURINARY: Denies dysuria or hematuria. SKIN: Reports rash MUSCULOSKELETAL: Denies back pain, joint pain, or myalgia. NEUROLOGIC: Denies headache, numbness, dizziness, or weakness. PSYCHIATRIC: Denies anxiety or depression. [facility] Past Medical History Medical History (Updated 07/16/22 @ 18:44 by Stevenson Laws, [employer]) Abdominal pain Abdominal pain Acute pharyngitis, unspecified Animal scabies Ankle sprain Anxiety B12 deficiency Breast mass, left Bronchitis Chronic nausea Contact dermatitis COPD (chronic obstructive pulmonary disease) COVID-19 Encounter for surgical aftercare following surgery on the skin and subcutaneous tissue Family history of osteoporosis Fever Heel pain Hypoestrogenism Incisional hernia Left ankle pain Left ankle sprain Left knee pain Lipoma Lung nodule Mass of skin of abdomen MCL sprain of left knee Medial meniscus, posterior horn derangement Nausea Nausea Other snf (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 Overweight Pelvic pain Preventative health care Productive cough PUD (peptic ulcer disease) Strep throat Suprapubic pain, acute Umbilical pain URI (upper respiratory infection) UTI (urinary tract infection) Weight gain Surgical History Surgical History H/O excision of mass 03/12/21 excisional biopsy left breast mass measuring approximately 2 x 1 cm, right upper quadrant abdominal wall subcutaneous mass measuring approximately 3 x 2 cm, epigastric abdominal wall subcutaneous mass measuring approximately 2 x 1 cm H/O: hysterectomy History of abdominal surgery History of cholecystectomy History of knee surgery History of surgery cervix removed Family History Family History Grandparent Diabetes mellitus Hypertension Family history of cardiovascular disease Cerebrovascular accident Family history of neuropathy Mother Hypertension Family history of cardiovascular disease Cerebrovascular accident Uterine cancer Father Diabetes mellitus Heart disease Cerebrovascular accident Hypertension Other Family history of arthritis Family history of seizure disorder Social History Social History (Reviewed 03/02/22 @ 10:49 by Erica Thurman
[2022-07-16] MEDS: FAMOTIDINE 20 MG/2 ML VIAL IV PUSH (17:26)
[2022-07-16] MEDS: diphenhydrAMINE HCl INJ 50 MG/ML VIAL 25 MG IV PUSH (17:26)
[2022-07-16] MEDS: SODIUM CHLORIDE 0.9% IV 1,000 ML 999 ML IV CONT (17:26)
[2022-07-16] MEDS: methylPREDNISolone SOD SUCC 125 MG VIAL IV PUSH (17:26)
[2022-07-16] MEDS: ONDANSETRON INJ 4 MG/2 ML VIAL IV PUSH (17:37)
[2022-07-16 17:40] LABS: Lactic Acid Reflex 0.8 mmol/L (0.7-2.0)
[2022-07-16 17:44] LABS: Appearance Urine Clear (Clear); Bilirubin Urine Negative (Negative); Blood Urine Negative (Negative); Glucose Urine UA Negative (Negative); Ketones Urine Negative (Negative); Leukocyte Esterase Ur Negative LEU/UL (Negative); Nitrate Urine Negative (Negative); Protein Urine Negative (Negative); Specific Grav Ur <= 1.005 (1.001-1.035); Urobilinogen Urine 0.2 mg/dL (<2.0); pH Urine 5.5 (5.0-9.0)
[2022-07-16 17:45] LABS: Amphetamine Screen Urine Negative (Negative); Barbiturate Screen Urine Negative (Negative); Benzodiazepines Screen Urine Negative (Negative); Cannabinoid Screen Urine Negative (Negative); Cocaine Screen Urine Negative (Negative); Methadone Screen Urine Negative (Negative); Opiate Screen Urine Negative (Negative); Phencyclidine Screen Urine Negative (Negative)
[2022-07-16 17:53] LABS: Add Urine Microscopic? NO; Color Urine Light Yellow (Yellow)
[2022-07-16 18:38] LABS: SARS-CoV-2 RNA PCR Negative
== END 2022-07-16 19:11 | disposition home or self-care (01) ==
PROVIDERS: Emergency Medicine; Emergency Provider Nurse Practitioner Family; PCP Family Medicine
DX: S40.862A Insect bite (nonvenomous) of left upper arm, initial encounter (principal); S40.861A Insect bite (nonvenomous) of right upper arm, initial encounter; S80.862A Insect bite (nonvenomous), left lower leg, initial encounter; S80.861A Insect bite (nonvenomous), right lower leg, initial encounter; T78.40XA Allergy, unspecified, initial encounter; R21 Rash and other nonspecific skin eruption; Z20.822 Contact with and (suspected) exposure to COVID-19; J44.9 Chronic obstructive pulmonary disease, unspecified; E53.8 Deficiency of other specified B group vitamins; Z86.16 Personal history of COVID-19; Z87.11 Personal history of peptic ulcer disease; Z87.440 Personal history of urinary (tract) infections; Z90.710 Acquired absence of both cervix and uterus; Z87.891 Personal history of nicotine dependence; Z79.82 Long term (current) use of aspirin; Z79.899 Other long term (current) drug therapy; W57.XXXA Bitten or stung by nonvenomous insect and other nonvenomous arthropods, initial encounter
CPT/HCPCS: 36415; 71046; 80053; 80307; 81003; 83605; 85025; 86666; 96361; 96374; 96375; 99284; 99285; C9803; J1200; J2405; J2930; J7030; U0003; U0005

== ENCOUNTER 2022-07-27 02:32 | Day surgery (SDC) | payer OTHER, SELFPAY ==
[2022-06-23 14:44] VITALS: BMI 27.5
--- NOTE | 2022-07-08 10:58 | PC.NURSE ---
Spoke with patient regarding rescheduled procedures. Updated patient with new dates and time. Patient denies any changes in medications or health history at this time.
[2022-07-27 11:07] VITALS: BP 136/94; PULSE 80; RESP 16; TEMP 36.3; O2SAT 99; BMI 29.0
[2022-07-27] MEDS: LACTATED RINGERS 1,000 ML 150 ML IV CONT (11:13)
--- NOTE | 2022-07-27 11:53 | PM.HPGS ---
History of Present Illness History of Present Illness Consent: Risks, benefits, and alternatives have been discussed and questions answered. Patient agrees to proceed with procedure. Chief complaint: Rectal bleed, nausea, LLQP Narrative: Joanne Fagan is a 47 year old female here for irc of internal hemorrhoids, sigmoidoscopy and egd. She had a colonoscopy 12/[address] Caruso with medium sized internal hemorrhoids. normal ileum, normal cecum, normal colon. Recently with rectal bleeding and anal discomfort improved after used anusol supp, also dysphagia and gerd using omeprazole. Review of Systems Constitutional: Constitutional: Denies headache(s) and Denies weakness Eyes: Eyes: Denies blurry vision ENT: Reports Normal hearing present, Denies headache(s) and Denies neck pain Cardiovascular: Cardiovascular: Denies chest pain and Denies dyspnea Respiratory: Respiratory: Denies dyspnea Gastrointestinal: Gastrointestinal: Reports no additional gastrointestinal complaints Genitourinary: Genitourinary: Denies dysuria Musculoskeletal: Musculoskeletal: Denies neck pain Integumentary/Breasts: Skin/Breast: Denies dry skin Neurologic: Reports Normal hearing present, Denies headache(s) and Denies weakness Psychiatric: Psychiatric: Denies anxiety Endocrine: Endocrine: Denies change in body appearance Hematologic/Lymphatic: Hematologic/Lymphatic: Denies easy bleeding Allergic/Immunologic: Allergic/Immunologic: Denies urticaria PMFSH Past Medical History Medical History (Updated 07/27/22 @ 11:54 by Pradeep Schmitz MD) Abdominal pain Abdominal pain Acute pharyngitis, unspecified Animal scabies Ankle sprain Anxiety B12 deficiency Breast mass, left Bronchitis Chronic nausea Contact dermatitis COPD (chronic obstructive pulmonary disease) COVID-19 Dysphagia Encounter for surgical aftercare following surgery on the skin and subcutaneous tissue Family history of osteoporosis Fever Heel pain Hemorrhoid Hypoestrogenism Incisional hernia Left ankle pain Left ankle sprain Left knee pain Lipoma Lung nodule Mass of skin of abdomen MCL sprain of left knee Medial meniscus, posterior horn derangement Nausea Nausea Other intermediate (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 Overweight Pelvic pain Preventative health care Productive cough PUD (peptic ulcer disease) Strep throat Suprapubic pain, acute Umbilical pain URI (upper respiratory infection) UTI (urinary tract infection) Weight gain Surgical History Surgical History H/O excision of mass 03/12/21 excisional biopsy left breast mass measuring approximately 2 x 1 cm, right upper quadrant abdominal wall subcutaneous mass measuring approximately 3 x 2 cm, epigastric abdominal wall subcutaneous mass measuring approximately 2 x 1 cm H/O: hysterectomy History of abdominal surgery History of cholecystectomy History of knee surgery History of surgery cervix removed Family History Family History Grandparent Diabetes mellitus Hypertension Family history of cardiovascular disease Cerebrovascular accident Family history of neuropathy Mother Hypertension Family history of cardiovascular disease Cerebrovascular accident Uterine cancer Father Diabetes mellitus Heart disease Cerebrovascular accident Hypertension Other Family history of arthritis Family history of seizure disorder Social History Social History Smoking status: Never smoker Tobacco type: cigarettes Second hand tobacco smoke exposure: No Smoking end date: 10/23/09 Additional smoking assessment comments: STATES SOCIAL SMOKER FOR 7 YEARS, 1PK EVERY 2-3 WEEKS, QUIT 2010 Alcohol intake: never Alcohol use details: 4 per year Substance use: never Substance use type: does not use Living arrangements: with family Spiritual
--- NOTE | 2022-07-27 12:09 | WPDANESEPPF ---
Anes - Initial Pre Proc Eval Procedure: Operation Date: 07/27/22 12:30 Proposed Procedures p Esophagogastroduodenoscopy - Pradeep Schmitz MD s Flexible Sigmoidoscopy - Pradeep Schmitz MD s [facility] Hemorrhoid Treatment - Pradeep Schmitz MD Date/Time: 07/27/22 12:09 Surgeon: Pradeep cShmitz MD Pre Op Diagnosis: Rectal bleed, nausea, LLQP Patient Data Age: 47 Gender: F Height: 1.63 m Weight: 76.7 kg Last Vital Signs Temp 97.4 F L 07/27/22 11:07 Pulse 80 07/27/22 11:07 Resp 16 07/27/22 11:07 BP 136/94 H 07/27/22 11:07 Pulse Ox 99 07/27/22 11:07 O2 Del Method Room Air 07/27/22 11:07 Allergies Allergy/AdvReac Type Severity Reaction Status Date / Time erythromycin base Allergy Mild Flushing Verified 07/27/22 11:06 hydromorphone [From Dilaudid] Allergy Rash Verified 07/27/22 11:06 MACROLIDES Allergy Severe Hives Uncoded 07/16/22 15:26 Home Medications Medication Instructions Recorded Confirmed Type cholecalciferol (vitamin D3) 1,250 1,250 mcg PO MONTHLY #14 tabs 10/27/21 07/16/22 Rx mcg (50,000 unit) tablet esomeprazole magnesium 20 mg 20 mg PO DAILY #60 caps 10/27/21 07/16/22 Rx capsule,delayed release (Nexium) ondansetron HCl 8 mg tablet 8 mg PO Q8H PRN Nausea And 01/07/22 06/24/22 Rx Vomiting #30 tabs albuterol sulfate 2.5 mg/3 mL 2.5 mg (3 mL) inhalation Q6H PRN 02/08/22 07/16/22 Rx (0.083 %) solution for nebulization Shortness Of Breath Or Wheezing #75 mL syringe with needle, safety 3 mL #1 ea 02/21/22 06/24/22 Rx 23 gauge x 1 (Easy Touch SheathLock Syringe with Needle) fluticasone propionate 230 2 puff inhalation BID #12 grams 02/25/22 07/16/22 Rx mcg-salmeterol 21 mcg/actuation HFA inhaler (Advair HFA) albuterol sulfate 90 mcg/actuation 1 inh inhalation Q4H PRN shortness 03/28/22 07/16/22 Rx aerosol inhaler of breath or wheezing #8.5 grams aspirin 325 mg tablet 325 mg PO DAILY 06/24/22 07/16/22 History vitamin [id number] B1 100 mg-1 1 ml IM WEEKLY #12 mL 06/29/22 07/08/22 Rx mg/mL intramuscular solution methylprednisolone 4 mg tablets in See Rx Instructions PO .COMPLEX 07/16/22 07/27/22 Rx a dose pack #21 ea Patient hx anesthesia problems: none Family hx anesthesia problems: none Results Review: All pre-operative results and documents have been reviewed as part of the pre-operative evaluation. [facility] Past Medical History Medical History (Updated 07/27/22 @ 11:54 by Pradeep Schmitz MD) Abdominal pain Abdominal pain Acute pharyngitis, unspecified Animal scabies Ankle sprain Anxiety B12 deficiency Breast mass, left Bronchitis Chronic nausea Contact dermatitis COPD (chronic obstructive pulmonary disease) COVID-19 Dysphagia Encounter for surgical aftercare following surgery on the skin and subcutaneous tissue Family history of osteoporosis Fever Heel pain Hemorrhoid Hypoestrogenism Incisional hernia Left ankle pain Left ankle sprain Left knee pain Lipoma Lung nodule Mass of skin of abdomen MCL sprain of left knee Medial meniscus, posterior horn derangement Nausea Nausea 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 Overweight Pelvic pain Preventative health care Productive cough PUD (peptic ulcer disease) Strep throat Suprapubic pain, acute Umbilical pain URI (upper respiratory infection) UTI (urinary tract infection) Weight gain Surgical History Surgical History H/O excision of mass 03/12/21 excisional biopsy left breast mass measuring approximately 2 x 1 cm, right upper quadrant abdominal wall subcutaneous mass measuring approximately 3 x 2 cm, epigastric abdominal wall subcutaneous mass measuring approximately 2 x 1 cm H/O: hysterectomy History of abdominal surgery History of cholecystectomy History of knee surgery History of surgery cervix removed Family History Family History (Reviewed 03/02/22 @ 10:
--- NOTE | 2022-07-27 12:30 | W.PM.PROC2 ---
Procedure Note - Detailed Date of Procedure 07/27/22 Pre-op Diagnosis Rectal bleed, hemorrhoids Post-op Diagnosis Same Procedure Performed IRC of internal hemorrhoids Surgeon Pradeep Schmitz MD Description of Procedure I introduced anoscopy and noted grade II internal hemorrhoids, no bleeding, no anal fissure. Then advanced IRC probe, hemorrhoids treated at 1.5 seconds x7
[2022-07-27 12:32] VITALS: BP 124/77; PULSE 82; RESP 22; O2SAT 100
[2022-07-27 12:42] VITALS: BP 121/77; PULSE 75; RESP 22; O2SAT 100
[2022-07-27 12:52] VITALS: BP 131/85; PULSE 74; RESP 20; O2SAT 100
== END 2022-07-27 13:06 | disposition home or self-care (01) ==
PROVIDERS: PCP Family Medicine; Visit Provider Internal Medicine Gastroenterology
PROC: 0DJ08ZZ Inspection of Upper Intestinal Tract, Via Natural or Artificial Opening Endoscopic (ICD-10-PCS; CPT 43235; principal; 2022-07-27 12:30)
PROC: 0DJD8ZZ Inspection of Lower Intestinal Tract, Via Natural or Artificial Opening Endoscopic (ICD-10-PCS; CPT 45330; 2022-07-27 12:30)
PROC: (CPT 46930; 2022-07-27 12:30)
DX: K62.5 Hemorrhage of anus and rectum (principal); K64.1 Second degree hemorrhoids; K64.8 Other hemorrhoids; K29.50 Unspecified chronic gastritis without bleeding; K21.00 Gastro-esophageal reflux disease with esophagitis, without bleeding; R11.0 Nausea; R10.32 Left lower quadrant pain; F41.9 Anxiety disorder, unspecified; E53.8 Deficiency of other specified B group vitamins; J44.9 Chronic obstructive pulmonary disease, unspecified; Z86.16 Personal history of COVID-19; Z90.49 Acquired absence of other specified parts of digestive tract; Z87.891 Personal history of nicotine dependence; Z79.82 Long term (current) use of aspirin; Z79.51 Long term (current) use of inhaled steroids
CPT/HCPCS: 45330; 43239; 46930; 88305; J2704; J7120

== ENCOUNTER 2022-08-25 09:33 | Outpatient (CLI) | payer OTHER, SELFPAY ==
[2022-08-29 22:49] LABS: Lyme Disease Ab (IgM), Blot Negative (Negative); Lyme Disease Ab(IgG), Blot Negative (Negative)
== END 2022-08-25 09:34 | disposition home or self-care (01) ==
LOC: ANHBWCLAB 09:35
PROVIDERS: PCP Family Medicine; Visit Provider Family Medicine
DX: L29.9 Pruritus, unspecified (principal); R21 Rash and other nonspecific skin eruption; R51.9 Headache, unspecified
CPT/HCPCS: 36415; 86617; 86666; 86757

== ENCOUNTER 2022-12-22 12:21 | Emergency (ER) | payer OTHER, SELFPAY ==
[2022-12-22] VITALS (39 sets, daily range): BP systolic 99–135; BP diastolic 42–75; PULSE 78–101; RESP 15–39; TEMP 36.8–37.8; O2SAT 94–100
--- NOTE | ~2022-12-22 | CT_ITS ---
EXAMINATION: CTA chest PE protocol DATE: 12/22/2022 14:11 INDICATION: CP, SOB, elevated dimer TECHNIQUE: Computed tomography angiography (CTA) of the chest was performed with 100 mL Omnipaque-350 intravenous contrast timed to evaluate the pulmonary arteries. Coronal maximum intensity projection 3D-reconstructions were created by the technologist. The dose-length product (DLP) was 470.38 mGy-cm. Automated exposure control and iterative reconstruction technique were employed. COMPARISON: 02/24/2021, x-ray chest 12/22/2022. FINDINGS: Lung parenchyma and airways: Central/bronchovascular bilateral lower lobe groundglass opacities, with mosaic pattern. Dependent and mosaic bilateral upper lobe groundglass opacities. Previously describe d right upper lobe pulmonary nodule not visualized. Stable left lower lobe peripheral 3 mm nodule, li llyod benign. Pleura: Unremarkable. Thoracic inlet, axillae and chest wall: Unremarkable. Thoracic aorta: Normal. Mediastinum: Normal. Heart and pericardium: Normal. Coronary artery calcifications: Absent. Upper abdomen: No significant finding. Bones: No acute osseous finding. Pulmonary arteries: Study quality: Adequate. No pulmonary emboli detected. IMPRESSION: No CT evidence of acute pulmonary embolus. Bilateral mosaic attenuation which can be seen with asthma , bronchiolitis obliterans, hypersensitivity pneumonitis, and chronic thromboembolic disease. . Reviewed, dictated and finalized at location K. URCE PARAPROFESSIONAL IMPRESSION: No CT evidence of acute pulmonary embolus. Bilateral mosaic attenuation which c an be seen with asthma, bronchiolitis obliterans, hypersensitivity pneumonitis, and chronic thromboembolic disease. .
--- NOTE | ~2022-12-22 | XR_ITS ---
EXAMINATION: XR chest 2V DATE: 12/22/2022 12:54 INDICATION: Chest pain. Shortness of breath. TECHNIQUE: Frontal and lateral views of the chest were obtained. COMPARISON: Chest 2 views 07/16/2022 FINDINGS: There is no pneumonia, pleural effusion, or pneumothorax. The heart size is normal. Surgica l clips in the right upper quadrant are likely from cholecystectomy. IMPRESSION: 1. No acute cardiopulmonary disease. Reviewed, dictated and finalized at location A. LOADER
--- NOTE | 2022-12-22 12:26 | ECG_ITS ---
Measurements Intervals [place] Rate: 76 P: 28 [place]: 163 QRS: 33 QRSD: 85 T: 58 QT: 382 QTc: 431 Interpretive Statements SINUS RHYTHM NONSPECIFIC T-WAVE ABNORMALITY BORDERLINE ECG NO PREVIOUS ECG AVAILABLE FOR COMPARISON Electronically Signed On 12-22-2022 15:26:03 CARE COORDINATOR by Kai Rabago M.D.
[2022-12-22 12:37] LABS: Hematocrit 40.2 % (37.0-47.0); Hemoglobin 12.6 g/dL (12.0-15.0); Mean Corpuscular HGB Conc 31.3 g/dl (32-36); Mean Corpuscular Hemoglobin 24.3 pg (26-34); Mean Corpuscular Volume 77.6 fl (80-100); Mean Platelet Volume 10.3 fl (7.4-10.4); Platelet Count Result 274 k/mm3 (150-375); Red Blood Count 5.18 M/mm3 (4.2-5.4); Red Cell Distribution Width 14.8 % (11.5-14.5); White Blood Count 14.4 K/mm3 (4.5-10.0)
[2022-12-22 12:47] LABS: Prothrombin Time 12.4 Seconds (11.1-14.7)
[2022-12-22 12:48] LABS: Partial Thromboplastin Time 25.2 SECONDS (22.3-36.8)
[2022-12-22 12:50] LABS: Band Neutrophils Percent 4 % (0-6); Lymphocytes Absolute Manual 0.57 K/mm3 (1.1-4.5); Monocytes Absolute Manual 0.72 K/mm3 (0.1-0.90); Monocytes Percent Manual 5 % (3-9); Neutrophils Percent Manual 87 % (46-73); Platelet Estimate Adequate (Adequate); Schistocytes None Seen (NORMAL); Total Cells Counted 100
[2022-12-22 12:54] LABS: Alanine Aminotransferase 21 U/L (6-35); Albumin Level 4.4 g/dL (3.5-5.1); Alkaline Phosphatase 88 U/L (38-126); Anion Gap 9 mmol/L (8-16); Aspartate Amino Transferase 21 U/L (14-36); Bilirubin,Total 0.7 mg/dL (0.2-1.3); Blood Urea Nitrogen 17 mg/dL (7-17); Calcium 9.1 mg/dL (8.4-10.2); Carbon Dioxide 24 mmol/L (22-30); Chloride 104 mmol/L (98-107); Estimated CRCL calculation 68 ml/min; Estimated Glomerular Filt Rate > 60; Glucose 136 mg/dL (65-110); Lipase 161 U/L (23-300); Sodium 137 mmol/L (137-145)
--- NOTE | 2022-12-22 13:01 | ED.CHESTPAIN ---
HPI - Chest Pain General Chief Complaint: Chest Pain Stated Complaint: chest pain and SOB Time Seen by Provider: 12/22/22 13:01 History of Present Illness HPI narrative: Patient is a 47-year-old female with a history of COPD, depression presenting with chest pain. Patient states that she developed chest tightness earlier this morning associated with slowly worsening dyspnea. Also states that she has a sore throat. She used her inhaler with minimal relief this morning. She has not tried anything for pain. Also complains of generalized headache. No lightheadedness, palpitations, cough, abdominal pain, vomiting, diarrhea, dysuria, leg swelling. Related Data Home Medications Medication Instructions Recorded Confirmed aspirin 325 mg tablet 325 mg PO DAILY 06/24/22 07/16/22 Allergies Allergy/AdvReac Type Severity Reaction Status Date / Time erythromycin base Allergy Mild Flushing Verified 12/22/22 12:23 hydromorphone [From Dilaudid] Allergy Rash Verified 12/22/22 12:23 MACROLIDES Allergy Severe Hives Uncoded 12/22/22 12:23 Review of Systems Review of Systems: All systems reviewed & are unremarkable except as noted in HPI and below PMFSH Past Medical History Medical History Abdominal pain Abdominal pain Acute pharyngitis, unspecified Animal scabies Ankle sprain Anxiety B12 deficiency Breast mass, left Bronchitis Chronic nausea Contact dermatitis COPD (chronic obstructive pulmonary disease) COVID-19 Dysphagia Encounter for surgical aftercare following surgery on the skin and subcutaneous tissue Family history of osteoporosis Fever Heel pain Hemorrhoid Hypoestrogenism Incisional hernia Left ankle pain Left ankle sprain Left knee pain Lipoma Lung nodule Mass of skin of abdomen MCL sprain of left knee Medial meniscus, posterior horn derangement Nausea Nausea Other prison (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 Overweight Pelvic pain Preventative health care Productive cough PUD (peptic ulcer disease) Strep throat Suprapubic pain, acute Umbilical pain URI (upper respiratory infection) UTI (urinary tract infection) Weight gain Surgical History Surgical History H/O excision of mass 03/12/21 excisional biopsy left breast mass measuring approximately 2 x 1 cm, right upper quadrant abdominal wall subcutaneous mass measuring approximately 3 x 2 cm, epigastric abdominal wall subcutaneous mass measuring approximately 2 x 1 cm H/O: hysterectomy History of abdominal surgery History of cholecystectomy History of knee surgery History of surgery cervix removed Family History Family History Grandparent Diabetes mellitus Hypertension Family history of cardiovascular disease Cerebrovascular accident Family history of neuropathy Mother Hypertension Family history of cardiovascular disease Cerebrovascular accident Uterine cancer Father Diabetes mellitus Heart disease Cerebrovascular accident Hypertension Other Family history of arthritis Family history of seizure disorder Social History Social History Smoking status: Never smoker Tobacco type: cigarettes Second hand tobacco smoke exposure: No Smoking end date: 10/23/09 Additional smoking assessment comments: STATES SOCIAL SMOKER FOR 7 YEARS, 1PK EVERY 2-3 WEEKS, QUIT 2010 Alcohol intake: never Alcohol use details: 4 per year Substance use: never Substance use type: does not use Living arrangements: with family 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 EYES: PERRLA and EOMI. ENT: Nares clear, no rhinorrhea or epistaxis. Mucous membranes dry NECK: Supple. CHEST: Diminished breath sounds wing
[2022-12-22 13:06] LABS: Troponin I < 0.012 ng/mL (0.000-0.034)
[2022-12-22] MEDS: SODIUM CHLORIDE 0.9% IV 1,000 ML 999 ML IV CONT ×2 (13:14→19:00)
[2022-12-22] MEDS: fentaNYL CITRATE INJ (*CRX) 100 MCG/2 ML VIAL IV PUSH (13:15)
[2022-12-22 13:30] LABS: D Dimer 0.56 ug/mL (<0.48)
[2022-12-22 13:32] LABS: NT Pro B Type Natriuretic Pept 109 pg/mL (19.9-100)
--- NOTE | 2022-12-22 13:43 | ECG_ITS ---
Measurements Intervals [place] Rate: 82 P: 38 [place]: 165 QRS: 37 QRSD: 91 T: 54 QT: 373 QTc: 438 Interpretive Statements SINUS RHYTHM RSR' IN V1 OR V2, PROBABLY NORMAL VARIANT NONSPECIFIC T-WAVE ABNORMALITY BORDERLINE ECG COMPARED TO ECG 12/22/2022 12:27:54 NO SIGNIFICANT CHANGES Electronically Signed On 12-22-2022 15:27:56 STORE PERSON by Kai Rabago M.D.
[2022-12-22] MEDS: ALBUTEROL SULFATE NEB 2.5 MG/3 ML INH 5 MG INHALATION ×2 (14:10→16:00)
[2022-12-22] MEDS: IPRATROPIUM BR 0.02% INH SOLN 0.5 MG/2.5 ML VIAL INHALATION (14:19)
[2022-12-22 14:24] LABS: Influenza A QL RT-PCR Negative (Negative); Influenza B QL RT-PCR Negative (Negative); RSV RNA, RT-PCR Negative (Negative); SARS-CoV-2 RNA PCR Negative
[2022-12-22 15:54] LABS: Troponin I < 0.012 ng/mL (0.000-0.034)
[2022-12-22] MEDS: methylPREDNISolone SOD SUCC 125 MG VIAL IV PUSH (16:28)
[2022-12-22] MEDS: KETOROLAC 15 MG/ML VIAL (*BKC) IV PUSH (16:29)
[2022-12-22] MEDS: fentaNYL CITRATE INJ (*CRX) 100 MCG/2 ML VIAL 50 MCG IV PUSH (16:29)
[2022-12-22 19:01] LABS: Troponin I < 0.012 ng/mL (0.000-0.034)
--- NOTE | 2022-12-22 19:15 | PC.NURSE ---
assumed care of pt. at this time. Report from DELON Rendon
--- NOTE | 2022-12-30 20:18 | PC.NURSE ---
LATE ENTRY This note is being entered to document information to the patient's record. The following information was omitted on [12/30/22], by [DELON Lake]. NS stopped at 1940
== END 2022-12-22 20:40 | disposition home or self-care (01) ==
PROVIDERS: Emergency Medicine; Emergency Provider Emergency Medicine; PCP Family Medicine
DX: J44.1 Chronic obstructive pulmonary disease with (acute) exacerbation (principal); J06.9 Acute upper respiratory infection, unspecified; Z20.822 Contact with and (suspected) exposure to COVID-19; E53.8 Deficiency of other specified B group vitamins; F41.9 Anxiety disorder, unspecified; F32.A Depression, unspecified; E66.3 Overweight; Z68.30 Body mass index [BMI] 30.0-30.9, adult; Z86.16 Personal history of COVID-19; Z87.11 Personal history of peptic ulcer disease; Z87.440 Personal history of urinary (tract) infections; Z90.710 Acquired absence of both cervix and uterus; Z79.82 Long term (current) use of aspirin; Z87.891 Personal history of nicotine dependence; R94.31 Abnormal electrocardiogram [ECG] [EKG]
CPT/HCPCS: 36415; 71046; 71275; 80053; 83690; 83880; 84484; 85025; 85380; 85610; 85730; 87637; 93005; 94640; 96361; 96365; 96374; 96375; 96376; 99284; J0131; J1885; J2930; J3010; J7030; Q9967

== ENCOUNTER 2023-08-23 08:39 | Emergency (ER) | payer OTHER, SELFPAY ==
--- NOTE | 2023-08-23 09:03 | ED.URI ---
HPI - URI/Sore Throat General Chief Complaint: Upper Respiratory Infection Stated Complaint: cough/aches/sob Time Seen by Provider: 08/23/23 09:32 Source: patient and RN notes reviewed Mode of arrival: ambulatory Limitations: no limitations History of Present Illness HPI Narrative: 48-year-old female presents with concern for 3 day history of cough, body aches, chest pain with coughing, back pain. She reports history of COPD. She reports she has been using her albuterol nebulizer and inhaler, she last used it this morning. She reports using Tylenol. She denies other [id number] medications. She reports nasal congestion rhinorrhea. Denies sore throat. MD elicited complaint: cough Related Data Home Medications Medication Instructions Recorded Confirmed aspirin 325 mg tablet 325 mg PO DAILY 06/24/22 07/16/22 fluticasone 250 mcg-salmeterol 50 inhalation 08/23/23 mcg/dose blistr powdr for inhalation Allergies Allergy/AdvReac Type Severity Reaction Status Date / Time erythromycin base Allergy Mild Flushing Verified 08/23/23 09:28 hydromorphone [From Dilaudid] Allergy Rash Verified 08/23/23 09:28 nitrofurantoin Allergy Unknown Verified 08/23/23 09:29 [From Macrobid] Review of Systems Review of Systems: CONSTITUTIONAL: Reports malaise, chills, sweats, fever. EYES: Denies visual changes, redness, or discharge. ENT: Reports rhinorrhea, congestion. Denies sinus pain, otalgia and sore throat. CARDIOVASCULAR: Denies palpitations, or edema. RESPIRATORY: Reports cough, dyspnea, chest pain with coughing. GASTROINTESTINAL: Denies abdominal pain, nausea, vomiting, diarrhea SKIN: Denies rash or itching. MUSCULOSKELETAL: Reports myalgia. NEUROLOGIC: Denies headache. All systems reviewed & are unremarkable except as noted in HPI and below PMFSH Past Medical History Medical History Abdominal pain Abdominal pain Acute pharyngitis, unspecified Animal scabies Ankle sprain Anxiety B12 deficiency Breast mass, left Bronchitis Chronic nausea Contact dermatitis COPD (chronic obstructive pulmonary disease) COVID-19 Dysphagia Encounter for surgical aftercare following surgery on the skin and subcutaneous tissue Family history of osteoporosis Fever Heel pain Hemorrhoid Hypoestrogenism Incisional hernia Left ankle pain Left ankle sprain Left knee pain Lipoma Lung nodule Mass of skin of abdomen MCL sprain of left knee Medial meniscus, posterior horn derangement Nausea Nausea 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 Overweight Pelvic pain Preventative health care Productive cough PUD (peptic ulcer disease) Strep throat Suprapubic pain, acute Umbilical pain URI (upper respiratory infection) UTI (urinary tract infection) Weight gain Surgical History Surgical History H/O excision of mass 03/12/21 excisional biopsy left breast mass measuring approximately 2 x 1 cm, right upper quadrant abdominal wall subcutaneous mass measuring approximately 3 x 2 cm, epigastric abdominal wall subcutaneous mass measuring approximately 2 x 1 cm H/O: hysterectomy History of abdominal surgery History of cholecystectomy History of knee surgery History of surgery cervix removed Family History Family History Grandparent Diabetes mellitus Hypertension Family history of cardiovascular disease Cerebrovascular accident Family history of neuropathy Mother Hypertension Family history of cardiovascular disease Cerebrovascular accident Uterine cancer Father Diabetes mellitus Heart disease Cerebrovascular accident Hypertension Other Family history of arthritis Family history of seizure disorder Social History Social History Smoking status: Never smoker Tobacco type: cigarettes
[2023-08-23 09:14] VITALS: BP 138/74; PULSE 90; RESP 20; TEMP 38; O2SAT 97
== END 2023-08-23 09:50 | disposition home or self-care (01) ==
PROVIDERS: Emergency Provider Nurse Practitioner; PCP Family Medicine
DX: J02.0 Streptococcal pharyngitis (principal); Z20.822 Contact with and (suspected) exposure to COVID-19; J44.9 Chronic obstructive pulmonary disease, unspecified; Z86.16 Personal history of COVID-19; Z79.82 Long term (current) use of aspirin
CPT/HCPCS: 87081; 87147; 87426; 87804; 87880; 99213; C9803; G0463

== ENCOUNTER 2023-10-13 17:47 | Emergency (ER) | payer OTHER, SELFPAY ==
--- NOTE | 2023-10-13 17:50 | ED.URI ---
HPI - URI/Sore Throat General Chief Complaint: Upper Respiratory Infection Stated Complaint: cough/aches/headache Time Seen by Provider: 10/13/23 18:12 Source: patient and RN notes reviewed Mode of arrival: ambulatory Limitations: no limitations History of Present Illness HPI Narrative: 48-year-old female presents concern for 10 day history of progressively worsening cough, shortness of breath, fever, aches chills, sweats, nasal congestion, rhinorrhea, headache. She reports that taking multiple [id number]-[id number] remedies without relief. She was seen on day 1 of symptoms and prescribe steroid which did not help. MD elicited complaint: fever and cough Related Data Allergies Allergy/AdvReac Type Severity Reaction Status Date / Time erythromycin base Allergy Mild Flushing Verified 10/13/23 17:55 hydromorphone [From Dilaudid] Allergy Rash Verified 10/13/23 17:55 nitrofurantoin Allergy Unknown Verified 10/13/23 17:55 [From Macrobid] Review of Systems Review of Systems: CONSTITUTIONAL: Reports malaise, chills, sweats, or fever. EYES: Denies visual changes, redness, or discharge. ENT: Reports rhinorrhea, congestion, sinus pain, and sore throat. CARDIOVASCULAR: Denies chest pain, palpitations, or edema. RESPIRATORY: Reports harsh cough, dyspnea. GASTROINTESTINAL: Denies abdominal pain, nausea, vomiting, diarrhea SKIN: Denies rash or itching. MUSCULOSKELETAL: Reports myalgia. NEUROLOGIC: Reports headache. All systems reviewed & are unremarkable except as noted in HPI and below PMFSH Past Medical History Medical History Abdominal pain Abdominal pain Acute pharyngitis, unspecified Animal scabies Ankle sprain Anxiety B12 deficiency Breast mass, left Bronchitis Chronic nausea Contact dermatitis COPD (chronic obstructive pulmonary disease) COVID-19 Dysphagia Encounter for surgical aftercare following surgery on the skin and subcutaneous tissue Family history of osteoporosis Fever Heel pain Hemorrhoid Hypoestrogenism Incisional hernia Left ankle pain Left ankle sprain Left knee pain Lipoma Lung nodule Mass of skin of abdomen MCL sprain of left knee Medial meniscus, posterior horn derangement Nausea Nausea Other skilled nursing (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 Overweight Pelvic pain Preventative health care Productive cough PUD (peptic ulcer disease) Strep throat Suprapubic pain, acute Umbilical pain URI (upper respiratory infection) UTI (urinary tract infection) Weight gain Surgical History Surgical History H/O excision of mass 03/12/21 excisional biopsy left breast mass measuring approximately 2 x 1 cm, right upper quadrant abdominal wall subcutaneous mass measuring approximately 3 x 2 cm, epigastric abdominal wall subcutaneous mass measuring approximately 2 x 1 cm H/O: hysterectomy History of abdominal surgery History of cholecystectomy History of knee surgery History of surgery cervix removed Family History Family History Grandparent Diabetes mellitus Hypertension Family history of cardiovascular disease Cerebrovascular accident Family history of neuropathy Mother Hypertension Family history of cardiovascular disease Cerebrovascular accident Uterine cancer Father Diabetes mellitus Heart disease Cerebrovascular accident Hypertension Other Family history of arthritis Family history of seizure disorder Social History Social History Smoking status: Never smoker Tobacco type: cigarettes Second hand tobacco smoke exposure: No Smoking end date: 10/23/09 Additional smoking assessment comments: STATES SOCIAL SMOKER FOR 7 YEARS, 1PK EVERY 2-3 WEEKS, QUIT 2010 Alcohol intake: never Alcohol use details: 4 per year Substance use: never Substance use type: d
[2023-10-13 17:52] VITALS: BP 137/73; PULSE 99; RESP 20; TEMP 37.4; O2SAT 96
[2023-10-13 18:17] VITALS: BP 137/73; PULSE 99; RESP 20; TEMP 37.4; O2SAT 96
== END 2023-10-13 18:25 | disposition home or self-care (01) ==
PROVIDERS: Emergency Provider Nurse Practitioner; PCP Family Medicine
DX: J06.9 Acute upper respiratory infection, unspecified (principal); Z87.891 Personal history of nicotine dependence; J44.9 Chronic obstructive pulmonary disease, unspecified; Z86.16 Personal history of COVID-19
CPT/HCPCS: 99213; G0463

== ENCOUNTER 2023-10-28 09:53 | Emergency (ER) | payer OTHER, SELFPAY ==
--- NOTE | ~2023-10-28 | XR_ITS ---
EXAMINATION: XR knee LT min 4V DATE: 10/28/2023 11:06 INDICATION: Left knee pain post fall from curb TECHNIQUE: Anteroposterior, 2 oblique and crosstable lateral views of the left knee were obtained COMPARISON: 03/12/2022 FINDINGS: Alignment is normal. No fracture. Joint spaces appear normal on nonweightbearing imaging. There is m arginal osteophytes in all 3 compartments of the knee consistent with at least mild osteoarthritis. T here is also mild osteoarthritis at the proximal tibiofibular articulation. No joint effusion/layerin g lipohemarthrosis. Soft tissues are unremarkable. IMPRESSION: 1. Mild tricompartmental osteoarthritis at the left knee. No joint effusion or acute osseous abnormal ity. Reviewed, dictated and finalized at location A. UNICATIONS ELECTRICIAN SUPERVISOR IMPRESSION: 1. Mild tricompartmental osteoarthritis at the left knee. No joint effusion or acute osseous abnormality.
--- NOTE | ~2023-10-28 | XR_ITS ---
EXAMINATION: XR ankle LT min 3V, XR foot LT min 3V DATE: 10/28/2023 11:04 INDICATION: Left foot and ankle pain post fall off of a curb TECHNIQUE: 1. Anteroposterior, mortise, additional oblique and lateral view of the left ankle were obtained. 2. Dorsoplantar, two oblique and lateral views of the left foot were obtained. COMPARISON: None. FINDINGS: Alignment of the left foot and ankle is normal. Small corticated ossicle along the anterior tip of th e lateral malleolus likely sequela of chronic anterior talofibular ligament sprain. There is some mil d overlying soft tissue swelling suggesting recurrent sprain. No acute fracture. Joint spaces are wel l maintained. No ankle joint effusion. IMPRESSION: 1. No acute osseous abnormality at the left foot or ankle. Reviewed, dictated and finalized at location A. BRANDER IMPRESSION: 1. No acute osseous abnormality at the left foot or ankle.
[2023-10-28 09:58] VITALS: BP 127/95; PULSE 81; RESP 20; TEMP 36.7; O2SAT 99
[2023-10-28 10:09] VITALS: BP 127/95; PULSE 81; RESP 20; TEMP 36.7; O2SAT 99
--- NOTE | 2023-10-28 10:20 | ED.LOWEXIN ---
HPI - Extremity Injury (Lower) General Chief Complaint: Extremity Injury, Lower Stated Complaint: knees/left foot & ankle injury Time Seen by Provider: 10/28/23 10:20 Source: patient, RN notes reviewed and old records reviewed Mode of arrival: ambulatory Limitations: no limitations History of Present Illness HPI Narrative: 48-year-old female presents to the [facility] with complaints of generalized left foot, lateral left ankle pain. Patient also reports bilateral knee pain worse on left than the right. Abrasions noted to bilateral knees. Patient reports that she tripped and fell, did not hit head. No loss of consciousness. Denies back or chest pain. Onset (ago): minute(s) (30) Related Data Home Medications Medication Instructions Recorded Confirmed fluticasone 250 mcg-salmeterol 50 1 inh inhalation BID 10/29/23 10/29/23 mcg/dose blistr powdr for inhalation (Advair Diskus) Allergies Allergy/AdvReac Type Severity Reaction Status Date / Time nitrofurantoin Allergy Severe Swelling Verified 10/29/23 10:35 [From Macrobid] morphine Allergy Intermediate Rash Verified 10/29/23 10:35 erythromycin base Allergy Mild Flushing Verified 10/28/23 10:02 hydromorphone [From Dilaudid] Allergy Rash Verified 10/28/23 10:02 Review of Systems Review of Systems: All systems reviewed & are unremarkable except as noted in HPI and below Constitutional: Constitutional: Reports no additional constitutional complaints Eyes: Eyes: Reports no additional eye complaints ENT: Reports system reviewed and no additional complaints, except as documented Cardiovascular: Cardiovascular: Reports no additional cardiovascular complaints, Denies chest pain and Denies dyspnea Respiratory: Respiratory: Reports no additional respiratory complaints, Denies chest congestion, Denies cough and Denies dyspnea Gastrointestinal: Gastrointestinal: Reports no additional gastrointestinal complaints, Denies abdominal pain, Denies nausea and Denies vomiting Musculoskeletal: Musculoskeletal: Reports as per HPI, Reports arthralgias and Reports joint swelling Integumentary/Breasts: Skin/Breast: Reports system reviewed and no additional complaints, except as docu Neurologic: Reports system reviewed and no additional complaints, except as documented Psychiatric: Psychiatric: Reports no additional psychiatric complaints Allergic/Immunologic: Allergic/Immunologic: Reports no additional allergic/immunologic complaints PMFSH Past Medical History Medical History Abdominal pain Abdominal pain Acute pharyngitis, unspecified Animal scabies Ankle sprain Anxiety B12 deficiency Breast mass, left Bronchitis Bug bite Chronic nausea Contact dermatitis COPD (chronic obstructive pulmonary disease) COVID COVID-19 Dysphagia Encounter for surgical aftercare following surgery on the skin and subcutaneous tissue Family history of osteoporosis Fever Headache Heel pain Hemorrhoid Hypoestrogenism Incisional hernia Left ankle pain Left ankle sprain Left knee pain Lipoma Lung nodule Mass of skin of abdomen MCL sprain of left knee Medial meniscus, posterior horn derangement Nausea Nausea Other usp (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 Overweight Pelvic pain Preventative health care Productive cough PUD (peptic ulcer disease) Rash Strep throat Suprapubic pain, acute Tick bites Umbilical pain URI (upper respiratory infection) UTI (urinary tract infection) Weight gain Surgical History Surgical History H/O excision of mass 03/12/21 excisional biopsy left breast mass measuring approximately 2 x 1 cm, right upper quadrant abdominal wall subcutaneous mass measuring approximately 3 x 2 cm, epigastric abdominal wall subcutaneous mass measuring approximately 2 x 1 cm H/O: hysterectomy History of abdominal surgery History of cholecystectomy History of knee surgery H
== END 2023-10-28 11:45 | disposition home or self-care (01) ==
PROVIDERS: Emergency Provider Nurse Practitioner; PCP Family Medicine
DX: S93.402A Sprain of unspecified ligament of left ankle, initial encounter (principal); S80.212A Abrasion, left knee, initial encounter; S80.211A Abrasion, right knee, initial encounter; S80.02XA Contusion of left knee, initial encounter; S80.01XA Contusion of right knee, initial encounter; W01.0XXA Fall on same level from slipping, tripping and stumbling without subsequent striking against object, initial encounter; M17.12 Unilateral primary osteoarthritis, left knee; Z87.891 Personal history of nicotine dependence; J44.9 Chronic obstructive pulmonary disease, unspecified; Z86.16 Personal history of COVID-19
CPT/HCPCS: 73564; 73610; 73630; 99214; G0463

== ENCOUNTER 2023-10-29 11:32 | Outpatient (CLI) | payer OTHER, SELFPAY ==
[2023-10-29 19:32] LABS: Basophils Absolute Auto 0.1 K/mm3 (0.0-0.1); Eosinophils Absolute Auto 0.1 K/mm3 (0-0.3); Eosinophils Percent Auto 2.2 % (0-4.4); Hematocrit 42.7 % (37.0-47.0); Hemoglobin 12.8 g/dL (12.0-15.0); Immature Granulocyte Absolute 0.01 K/mm3 (0.00-0.031); Immature Granulocyte Percent A 0.2 % (0-0.5); Lymphocytes Absolute Auto 1.14 K/mm3 (0.9-3.2); Lymphocytes Percent Auto 21.1 % (18.3-44.2); Mean Corpuscular Hemoglobin 23.7 pg (26-34); Mean Corpuscular Volume 79.1 fl (80-100); Mean Platelet Volume 10.7 fl (7.4-10.4); Monocytes Absolute Auto 0.6 K/mm3 (0.1-0.6); Monocytes Percent Auto 10.7 % (2.6-8.5); Neutrophils Absolute Auto 3.5 K/mm3 (1.3-6.7); Neutrophils Percent Auto 63.8 % (45.5-73.1); Platelet Count Result 289 k/mm3 (150-375); Red Cell Distribution Width 14.8 % (11.5-14.5); White Blood Count 5.4 K/mm3 (4.5-10.0)
[2023-10-29 19:46] LABS: Iron 34 ug/dL (37-170)
[2023-10-29 19:47] LABS: Alanine Aminotransferase 26 U/L (6-35); Albumin Level 4.3 g/dL (3.5-5.1); Alkaline Phosphatase 114 U/L (38-126); Anion Gap 9 mmol/L (8-16); Aspartate Amino Transferase 30 U/L (14-36); Bilirubin,Total 0.4 mg/dL (0.2-1.3); Blood Urea Nitrogen 17 mg/dL (7-17); Calcium 9.4 mg/dL (8.4-10.2); Carbon Dioxide 24 mmol/L (22-30); Chloride 105 mmol/L (98-107); Cholesterol 300 mg/dL (0-200); Estimated Glomerular Filt Rate > 60; Glucose 100 mg/dL (65-110); HDL Direct 63 mg/dL; Potassium 4.1 mmol/L (3.4-5.0); Sodium 138 mmol/L (137-145); Triglycerides 264 mg/dL (<150)
[2023-10-29 19:49] LABS: Hemoglobin A1C 6.2 % (<5.7)
[2023-10-29 20:04] LABS: LDL Cholesterol Direct 183 mg/dL
[2023-10-29 20:12] LABS: Percent Iron Saturation 9 % (20-50)
== END 2023-10-29 11:33 | disposition home or self-care (01) ==
LOC: ANHGOSHLAB 11:33
PROVIDERS: PCP Family Medicine; Visit Provider Nurse Practitioner
DX: J44.9 Chronic obstructive pulmonary disease, unspecified (principal); R73.09 Other abnormal glucose
CPT/HCPCS: 36415; 80053; 80061; 82728; 83036; 83540; 83550; 84443; 85025

== ENCOUNTER 2023-11-04 14:35 | Outpatient (CLI) | payer OTHER, SELFPAY ==
[2023-11-04 20:22] LABS: Vitamin B12 > 1000.0 pg/mL (239-931)
[2023-11-06 20:13] LABS: Apolipoprotein B 127 mg/dL (<90)
[2023-11-09 03:34] LABS: ANA Cascade Screen Negative (Negative)
== END 2023-11-04 14:36 | disposition home or self-care (01) ==
LOC: ANHGOSHLAB 14:37
PROVIDERS: PCP Nurse Practitioner; Visit Provider Nurse Practitioner
DX: E78.5 Hyperlipidemia, unspecified (principal); Z83.2 Family history of diseases of the blood and blood-forming organs and certain disorders involving the immune mechanism; E53.8 Deficiency of other specified B group vitamins
CPT/HCPCS: 36415; 82172; 82607; 86038; 86225; 86235; 86364

== ENCOUNTER 2023-11-04 14:49 | Outpatient (CLI) | payer OTHER, SELFPAY ==
--- NOTE | ~2023-11-04 | MR_ITS ---
MRI of the left ankle Clinical history: Sprain Technique: Coronal proton-density and proton-density fat-sat images, axial proton-density and proton- density fat-sat images, and sagittal proton-density and proton-density fat-sat images were acquired. Findings: There is thickening and increased signal of the anterior talofibular ligament. Calcaneofibu lar ligament and posterior talofibular ligament are intact. Syndesmotic ligaments are intact. Deltoid ligament is intact. Medial flexor tendons, peroneal tendons, anterior extensor tendons, and Achilles tendon are intact. There is no osteochondral lesion of the talar dome. Suspected small chronic avulsion fracture aspect the tip of the lateral malleolus. Visualized bone marrow signals and joint spaces are preserved. No j oint effusion. Plantar fascia intact. Normal signal preserved in the sinus Tarsi. No mass lesion or fluid collection seen. Impression: Thickening and increased signal of the anterior talofibular ligament is compatible with sequelae spra in, possibly chronic in nature. Suspected chronic small avulsion fracture at the tip the lateral malleolus. Reviewed, dictated and finalized at location . ICIAN ASSISTANT SURGERY Impression: Thickening and increased signal of the anterior talofibular ligament is compati ble with sequelae sprain, possibly chronic in nature. Suspected chronic small avulsion fracture at the tip the lateral malleolus.
--- NOTE | ~2023-11-04 | US_ITS ---
EXAMINATION: US axilla RT DATE: 11/04/2023 15:35 INDICATION: Right upper arm pain TECHNIQUE: Multiple grayscale and Doppler ultrasound images of the region of concern at the right axi lla were obtained. COMPARISON: None FINDINGS: Region of concern is a lymph node measuring 2.1 x 2.6 x 1.1 cm which is composed predominantly by lar ge central fatty hilum with relatively thin peripheral hypoechoic cortex. No pathologically enlarged lymph nodes identified. No abnormal masses or fluid collections identified. IMPRESSION: 1. Mildly prominent right axillary lymph node but which is composed predominantly of a large central fatty hilum with only thin peripheral cortex suggesting this represents a chronic reactive lymph node . Reviewed, dictated and finalized at location A. PMENT SCHEDULER IMPRESSION: 1. Mildly prominent right axillary lymph node but which is composed predominant ly of a large central fatty hilum with only thin peripheral cortex suggesting t his represents a chronic reactive lymph node.
== END 2023-11-04 14:50 ==
PROVIDERS: PCP Nurse Practitioner; Visit Provider Nurse Practitioner
DX: S93.402A Sprain of unspecified ligament of left ankle, initial encounter (principal); M79.621 Pain in right upper arm; X58.XXXA Exposure to other specified factors, initial encounter
CPT/HCPCS: 73721; 76882

== ENCOUNTER 2023-11-09 12:24 | Outpatient (CLI) | payer OTHER, SELFPAY ==
[2023-11-09 12:47] LABS: Basophils Absolute Auto 0.1 K/mm3 (0.0-0.1); Basophils Percent Auto 1.2 % (0.2-1.2); Eosinophils Absolute Auto 0.4 K/mm3 (0-0.3); Eosinophils Percent Auto 5.9 % (0-4.4); Hematocrit 41.1 % (37.0-47.0); Hemoglobin 12.9 g/dL (12.0-15.0); Immature Granulocyte Absolute 0.02 K/mm3 (0.00-0.031); Immature Granulocyte Percent A 0.3 % (0-0.5); Lymphocytes Absolute Auto 3.05 K/mm3 (0.9-3.2); Lymphocytes Percent Auto 41.9 % (18.3-44.2); Mean Corpuscular HGB Conc 31.4 g/dl (32-36); Mean Corpuscular Hemoglobin 23.9 pg (26-34); Mean Corpuscular Volume 76.3 fl (80-100); Mean Platelet Volume 9.1 fl (7.4-10.4); Monocytes Absolute Auto 0.7 K/mm3 (0.1-0.6); Monocytes Percent Auto 9.3 % (2.6-8.5); Neutrophils Percent Auto 41.4 % (45.5-73.1); Platelet Count Result 365 k/mm3 (150-375); Red Blood Count 5.39 M/mm3 (4.2-5.4); White Blood Count 7.3 K/mm3 (4.5-10.0)
[2023-11-09 13:46] LABS: Alanine Aminotransferase 33 U/L (6-35); Albumin Level 4.4 g/dL (3.5-5.1); Alkaline Phosphatase 109 U/L (38-126); Anion Gap 9 mmol/L (8-16); Aspartate Amino Transferase 28 U/L (14-36); Bilirubin,Total 0.4 mg/dL (0.2-1.3); Blood Urea Nitrogen 19 mg/dL (7-17); Calcium 9.4 mg/dL (8.4-10.2); Carbon Dioxide 27 mmol/L (22-30); Chloride 104 mmol/L (98-107); Estimated Glomerular Filt Rate 59; Glucose 97 mg/dL (65-110); Lactate Dehydrogenase 221 U/L (120-246); Potassium 4.5 mmol/L (3.4-5.0); Sodium 140 mmol/L (137-145)
[2023-11-09 16:34] LABS: Iron 57 ug/dL (37-170)
[2023-11-09 16:43] LABS: Percent Iron Saturation 13 % (20-50)
[2023-11-12 12:47] LABS: Methylmalonic Acid 118 nmol/L (87-318)
== END 2023-11-09 12:25 | disposition home or self-care (01) ==
LOC: ANHLAB 12:27
PROVIDERS: Nurse Practitioner Family; PCP Nurse Practitioner; Visit Provider Internal Medicine Hematology & Oncology
DX: D72.821 Monocytosis (symptomatic) (principal); N63.10 Unspecified lump in the right breast, unspecified quadrant; N63.20 Unspecified lump in the left breast, unspecified quadrant; D50.9 Iron deficiency anemia, unspecified
CPT/HCPCS: 36415; 80053; 82728; 83540; 83550; 83615; 83921; 84238; 85025; 88184

== ENCOUNTER → 2023-11-25 08:46 | Outpatient (CLI) | payer OTHER, SELFPAY ==
--- NOTE | ~2023-11-25 | MMUS_ITS ---
EXAMINATION: MM diagnostic grzegorz BI w saba, US breast BI limited HISTORY: Palpable right breast/axillary abnormality. TECHNIQUE: Additional 3-D tomosynthesis images of the breasts were performed and synthetic 2-D images were generated. CAD analysis was submitted and interpreted. High resolution limited bilateral breast ultrasound was performed. COMPARISON: 02/20/2021 BREAST PARENCHYMAL COMPOSITION: Not dense: There are scattered areas of fibroglandular density. FINDINGS: MAMMOGRAPHIC FINDINGS: There are no suspicious masses, calcifications or architectural distortion in either breast to sugges t malignancy. Stable bilateral axillary lymph nodes allowing for differences of technique. ULTRASOUND: Limited bilateral breast ultrasound: Normal heterogeneous echotexture in both breasts. There is a nor mal-appearing right axillary lymph node measuring 16 mm with fatty hilum. No suspicious masses on eit her side to suggest malignancy. IMPRESSION: 1. No evidence for malignancy in either breast. 2. Routine yearly screening mammogram and regular clinical breast examination are recommended. BI-RADS Category 2: Benign finding(s). Reviewed, dictated and finalized at location A. S CLIPPINGS CUTTER AND PASTER IMPRESSION: 1. No evidence for malignancy in either breast. 2. Routine yearly screening mammogram and regular clinical breast examination a re recommended. BI-RADS Category 2: Benign finding(s).
== END ==
PROVIDERS: PCP Nurse Practitioner; Visit Provider Nurse Practitioner Family
DX: N63.10 Unspecified lump in the right breast, unspecified quadrant (principal); N63.20 Unspecified lump in the left breast, unspecified quadrant
CPT/HCPCS: 76642; 77062; 77066; G0279

== ENCOUNTER 2024-01-04 12:39 | Outpatient (CLI) | payer OTHER, SELFPAY ==
--- NOTE | 2024-01-04 13:00 | ECG_ITS ---
Measurements Intervals [place] Rate: 74 P: 40 ID: [id number] QRS: 30 QRSD: 84 T: 55 QT: 372 QTc: 414 Interpretive Statements SINUS RHYTHM NORMAL ECG COMPARED TO ECG 12/22/2022 13:46:10 NO SIGNIFICANT CHANGES Electronically Signed On 01-04-2024 13:41:25 CDT by Fidel Muñoz D.O.
== END 2024-01-04 12:40 | disposition home or self-care (01) ==
PROVIDERS: PCP Nurse Practitioner; Visit Provider Surgery
DX: E78.5 Hyperlipidemia, unspecified (principal); Z01.818 Encounter for other preprocedural examination
CPT/HCPCS: 93005

== ENCOUNTER 2024-01-07 00:25 | Day surgery (SDC) | payer OTHER, SELFPAY ==
[2023-12-31 14:33] VITALS: BMI 32.6
--- NOTE | 2023-12-31 15:17 | PC.NURSE ---
Report to the Outpatient Waiting Room, entrance under the green pavilion located off [facility], at time _0630 on date __Wednesday01/07/24 . Planned Procedure Time: _929 . Time changes happen often and if your time is changed the preop area will call you the afternoon before. - You and your visitor will be asked to self-screen and do not enter if you have any COVID symptoms. - A mask is optional within the hospital at this time. Patients may have clear liquids (water, carbonated beverages, clear teas, apple juice) until 3 hours prior to surgery with a maximum of 20 ounces. - No food from midnight until time of surgery Take the following medications with a SIP of water the morning of surgery: __INHALERS IF NEEDED; MONTELUKAST DO NOT STOP ANY OF YOUR OTHER PRESCRIPTION MEDICATIONS PRIOR TO SURGERY ?EXCEPT THE FOLLOWING Medications to discontinue per physician NONE Date to take last dose___NONE Please no make-up, nail pashto, hairspray, perfume, deodorant, or body powder the day of surgery. No jewelry (including any body piercings) or valuables the day of surgery, leave them at home. Please take a shower or bath the night before, or the morning of, surgery with an antibacterial soap. Wear comfortable, loose fitting clothing. - Jewelry must be removed prior to entering the operating room. Rings and piercings that are not removed may be cut off. - The hospital will not accept responsibility for valuables. - Please leave all valuables, including medications, at home the day of surgery. If you are going home after surgery, a licensed shuttle bus driver must drive you home. - NO public transportation without another adult if you receive anesthesia. - We recommend that an adult stay with you for 24 hours following discharge. - We also recommend that you do not drive, make important decision, drink alcoholic beverages, or take any drugs that were not prescribed by your health care provider for at least 24 hours after your discharge time. Follow any additional instructions given to you from your surgeon. If you or anyone in your household have experienced Covid symptoms in the past week, please notify your surgeon or the nurse liaison at the phone number below for possible testing. Telephone instructions given to _KIM and asked if any additional questions and then verbalized understanding. Patient advised to call surgeon office or pre surgery nurse liaison [phone] if any additional questions.
[2024-01-07] VITALS (11 sets, daily range): BP systolic 101–132; BP diastolic 67–80; PULSE 69–86; RESP 12–20; TEMP 36.1–36.4; O2SAT 94–100; BMI 32.3
--- NOTE | ~2024-01-07 | US_ITS ---
Patient name: Joanne Fagan Date of : 1975 US breast needle loc RT DATE: 01/07/2024 11:04 INDICATION: Right axillary lymph node localization for surgical excision TECHNIQUE: The purpose of the procedure, technique and potential complications including infection and bleeding were discussed with the patient. The patient indicated understanding and gave consent. COMPARISON: November 25, 2023 limited bilateral breast ultrasound examination FINDINGS: The right axillary lymph node of interest was localized sonographically. The overlying skin was repaired with sterile Betadine. Sterile drapes were applied. 1% lidocaine was administered to the skin and underlying subcutaneous tissues. A [place] Mammalok needle was introduced into the lymph node and the guidewire engaged through the tip of the needle under sonographic visualization. The needle was then withdrawn. Ultrasound images were retained for the record, demonstrating the wire intimately wrapped around the margin of the lymph node of interest. The patient was very cooperative and tolerated the procedure well, without complaint or apparent complication. IMPRESSION: Successful ultrasound guided localization of right axillary lymph node of interest Reviewed, dictated and finalized at Location A. Reviewed, dictated and finalized at location A. MTDD IMPRESSION: Successful ultrasound guided localization of right axillary lymph n ode of interest
[2024-01-07] MEDS: LACTATED RINGERS 1,000 ML 30 ML IV CONT ×2 (08:09→10:58)
--- NOTE | 2024-01-07 08:58 | WPDHPUPDATE1 ---
History and Physical Update Update Date/Time: 01/07/24 08:58 History and Physical has been reviewed, including an updated exam of the patient. There are NO changes in the patient's condition. Risks, benefits, and alternatives have been discussed and questions answered. Patient agrees to proceed with procedure.
--- NOTE | 2024-01-07 08:59 | WPDHPUPDATE1 ---
History and Physical Update Update Date/Time: 01/07/24 08:59 History and Physical has been reviewed, including an updated exam of the patient. There are NO changes in the patient's condition. Risks, benefits, and alternatives have been discussed and questions answered. Patient agrees to proceed with procedure.
--- NOTE | 2024-01-07 09:11 | WPDANESEPPF ---
Anes - Initial Pre Proc Eval Procedure: Operation Date: 01/07/24 09:30 Proposed Procedures p Right Axillary Node Biopsy - German Bills MD s with Ultrasound and/or Mammogram Guided Wire Localization - German Bills MD Date/Time: 01/07/24 09:11 Surgeon: German Bills MD Pre Op Diagnosis: Right Axillary Mass Patient Data Age: 48 Gender: F Height: 1.63 m Weight: 85.4 kg Last Vital Signs Temp 97 F L 01/07/24 07:00 Pulse 76 01/07/24 07:00 Resp 16 01/07/24 07:00 BP 132/80 01/07/24 07:00 Pulse Ox 97 01/07/24 07:00 O2 Del Method Room Air 01/07/24 07:00 Allergies Allergy/AdvReac Type Severity Reaction Status Date / Time nitrofurantoin Allergy Severe Swelling Verified 12/31/23 15:07 [From Macrobid] morphine Allergy Intermediate Rash Verified 12/31/23 15:07 erythromycin base Allergy Mild Flushing Verified 12/31/23 15:07 hydromorphone [From Dilaudid] Allergy Rash Verified 12/31/23 15:07 Home Medications Medication Instructions Recorded Confirmed Type albuterol sulfate 2.5 mg/3 mL 2.5 mg (3 mL) inhalation Q6H PRN 10/08/22 12/31/23 Rx (0.083 %) solution for nebulization Shortness Of Breath Or Wheezing #75 mL syringe with needle, safety 3 mL #1 ea 12/15/22 12/31/23 Rx 23 gauge x 1 (Easy Touch SheathLock Syringe with Needle) montelukast 10 mg tablet 10 mg PO DAILY #90 tabs 02/08/23 12/31/23 Rx albuterol sulfate 90 mcg/actuation 2 puff inhalation QID PRN 10/13/23 12/31/23 Rx aerosol inhaler shortness of breath or wheezing #8.5 grams fluticasone 250 mcg-salmeterol 50 1 inh inhalation BID 10/29/23 12/31/23 History mcg/dose blistr powdr for inhalation (Advair Diskus) atorvastatin 10 mg tablet 10 mg PO QHS #90 tabs 11/10/23 12/31/23 Rx Patient hx anesthesia problems: none Family hx anesthesia problems: none Results Review: All pre-operative results and documents have been reviewed as part of the pre-operative evaluation. [facility] Past Medical History Medical History Abdominal pain Abdominal pain Acute pharyngitis, unspecified Animal scabies Ankle sprain Anxiety B12 deficiency Breast mass, left Bronchitis Bug bite Chronic nausea Contact dermatitis COPD (chronic obstructive pulmonary disease) COVID COVID-19 Dysphagia Encounter for surgical aftercare following surgery on the skin and subcutaneous tissue Family history of osteoporosis Fever Headache Heel pain Hemorrhoid Hypoestrogenism Incisional hernia Left ankle pain Left ankle sprain Left knee pain Lipoma Lung nodule Mass of skin of abdomen MCL sprain of left knee Medial meniscus, posterior horn derangement Nausea Nausea 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 Overweight Pelvic pain Preventative health care Productive cough PUD (peptic ulcer disease) Rash Strep throat Suprapubic pain, acute Tick bites Umbilical pain URI (upper respiratory infection) UTI (urinary tract infection) Weight gain Surgical History Surgical History H/O excision of mass 03/12/21 excisional biopsy left breast mass measuring approximately 2 x 1 cm, right upper quadrant abdominal wall subcutaneous mass measuring approximately 3 x 2 cm, epigastric abdominal wall subcutaneous mass measuring approximately 2 x 1 cm H/O: hysterectomy History of abdominal surgery History of cholecystectomy History of knee surgery History of surgery cervix removed Family History Family History Grandparent Diabetes mellitus Hypertension Family history of cardiovascular disease Cerebrovascular accident Family history of neuropathy Mother Hypertension Family history of cardiovascular disease Cerebrovascular accident Uterine cancer Father Diabetes mellitus Heart disease Cerebrovascular accident Hypertension Other Family history of arthritis Fa
[2024-01-07] MEDS: ceFAZolin 2 GM/D5W 50 ML 2 GM/50 ML BAG IVPB (09:15)
--- NOTE | 2024-01-07 09:28 | WPDPN ---
Subjective Date/time seen: 01/07/24 09:28 Interval history: Patient doing very well today. Still having bowel movements. Water-soluble small bowel series yesterday showed normal transit time to the colon 45minutes. No evidence of small-bowel obstruction. He tolerated clear liquids. Will advance to regular diet today. Exam GI: GI Palp: Yes Soft to palpation, No Firmness to palpation present (GI), No Tenderness to palpation present (GI), No Guarding due to palpation present (GI) and No Hernia present Objective Data Vital Signs Vital Signs: Vital Signs - 24 hr 01/07/24 07:00 Temperature 36.1 C L Pulse Rate 76 Respiratory Rate 16 Blood Pressure 132/80 Pulse Oximetry 97 Oxygen Delivery Room Air Meds/Results Medications: Active Medications Generic Name Dose Route Start Last Admin Trade Name Freq PRN Reason Stop Dose Admin Fentanyl Citrate 25 mcg 01/06/24 14:30 Fentanyl Citrate Inj (*Crx) 100 Mcg/2 Ml Vial IV PUSH Q2M PRN Pain Lactated Ringer's 1,000 mls @ 30 mls/hr 01/06/24 14:30 01/07/24 08:09 Lr - Lactated Ringers Iv IV CONT 30 mls/hr .Q24H BRENDEN Administration Lactated Ringer's 1,000 mls @ 30 mls/hr 01/06/24 14:30 Lr - Lactated Ringers Iv IV CONT .Q24H BRENDEN Ondansetron HCl 4 mg 01/06/24 14:30 Ondansetron Inj 4 Mg/2 Ml Vial IV PUSH ONCE PRN Nausea
[2024-01-07] MEDS: LIDO 1%/EPINEPHRINE 1:100,000 20 ML VIAL 30 ML INFILTRATE (10:38)
[2024-01-07] MEDS: BUPivacaine HCL 0.5% 10 ML AMP 30 ML INFILTRATE (10:39)
--- NOTE | 2024-01-07 11:04 | P.OP_ITS ---
Procedure Note - Detailed Date of Procedure 01/07/24 Pre-op Diagnosis Right axillary lymphadenopathy Post-op Diagnosis Same Procedure Performed Ultrasound-guided wire localized excisional right axillary lymph node biopsy Surgeon German Bills MD Vice President For Instruction [employer] Anesthesia General Indications Patient is a 48-year-old female who has no prior history of cancer or lymphoma. Recent mammograms were normal. She was complaining having some right axillary pain and no axillary lymphadenopathy could be palpated. However on ultrasound there was a 2x3cm lymph node seen. She presents now for a ultrasound guided wire localized excisional right external lymph node biopsy for this enlarged lymph node. Findings The patient had a level 2 enlarged lymph node measuring 2x2cm. It was supple and fleshy. It was sent to pathology for examination fresh. Description of Procedure Prior to coming to the operating room the patient had a ultrasound guided wire localization of the enlarged lymph node right axilla to the fact was nonpalpable. She was then brought the holding area in the OR area where she was seen by Anesthesia and then taken back to the operating room after informed consent was obtained. She was placed supine on the operating table and then general LMA anesthesia was administered. The right axilla and right breast and chest wall was then prepped and draped usual sterile fashion without disturbing the with orientation of the localizing guidewire. A time-out was then performed correctly identifying the patient as well as procedure to be performed. She was given perioperative IV antibiotics. I started by making a oblique incision in the right axillary region to include the insertion site of the guidewire. Dissection carried deeply through the dermis skin with a scalpel and then electrocautery was used to dissect down through the subcutaneous tissues and down through the deltopectoral fascia. Retractors were placed to for exposure continue following the shaft of the guidewire down to the axillary triangle. The pectoralis major muscles retracted medially and just at the level of the pectoralis minor muscle at the level 2 lymph nodes the guidewire noted to be hooked within a area of tissue which had a 2x2cm flesh-colored supple and well- circumscribed lymph node. Due to very carefully dissect around this lymph node with tonsil clamp dissection and then ligating the small lymphatic vessels and blood vessels with titanium clips. The lymph node was completely excised out intact and was sent to pathology fresh for examination. Then irrigated out the incision sterile saline solution. Hemostasis was achieved electrocautery. The incision was then closed utilizing interrupted 2-0 chromic sutures in the deltopectoral fascia and in the deeper subcutaneous tissues. This was then followed by a running 3-0 Vicryl suture to further approximate the superficial subcutaneous tissues. The skin edges were then approximated with a running subcuticular 4 Monocryl suture. The incision was then cleaned and skin glue was applied. The patient tolerated the procedure well no complications. All sponges, needles, and instrument counts were correct at the end procedure. EBL was _15__cc. The patient was awakened and taken to recovery in stable and satisfactory condition. Implants None Estimated Blood Loss 15 Drains No Packing No Pathology Yes (Lymph node to pathology fresh) Complications No immediate complications Condition Stable Disposition PACU [facility] Billing Surgery - Charge Forward: Surgery Billing
[2024-01-07] MEDS: fentaNYL CITRATE INJ (*CRX) 100 MCG/2 ML VIAL 25 MCG IV PUSH ×4 (11:38→12:18)
[2024-01-07] MEDS: oxyCODONE HCL (*CRX) 5 MG TAB IR PO (13:12)
== END 2024-01-07 13:51 | disposition home or self-care (01) ==
PROVIDERS: PCP Nurse Practitioner; Visit Provider Surgery
PROC: (CPT 38525; principal; 2024-01-07 09:30)
PROC: (CPT 38525; 2024-01-07 09:30)
DX: R59.0 Localized enlarged lymph nodes (principal); J44.9 Chronic obstructive pulmonary disease, unspecified; Z79.51 Long term (current) use of inhaled steroids; Z87.891 Personal history of nicotine dependence; E66.9 Obesity, unspecified; Z68.32 Body mass index [BMI] 32.0-32.9, adult
CPT/HCPCS: 38525; 19285; 88305; 93005; A9270; C1713; C1769; J0690; J1100; J1885; J2250; J2371; J2405; J3010; J7120

== ENCOUNTER 2024-02-10 08:27 | Outpatient (CLI) | payer OTHER, SELFPAY ==
[2024-02-10 19:17] LABS: Alanine Aminotransferase 34 U/L (6-35); Albumin Level 4.7 g/dL (3.5-5.1); Alkaline Phosphatase 81 U/L (38-126); Aspartate Amino Transferase 47 U/L (14-36); Bilirubin,Total 0.5 mg/dL (0.2-1.3); Cholesterol 190 mg/dL (0-200); HDL Direct 56 mg/dL; Triglycerides 100 mg/dL (<150)
[2024-02-10 19:29] LABS: LDL Cholesterol Direct 110 mg/dL
== END 2024-02-10 08:28 | disposition home or self-care (01) ==
PROVIDERS: PCP Nurse Practitioner; Visit Provider Nurse Practitioner
DX: E78.5 Hyperlipidemia, unspecified (principal)
CPT/HCPCS: 36415; 80061; 80076

== ENCOUNTER 2024-04-02 11:25 | Emergency (ER) | payer OTHER, SELFPAY ==
[2024-04-02] VITALS (12 sets, daily range): BP systolic 100–128; BP diastolic 64–82; PULSE 80–102; RESP 18–27; TEMP 36.8; O2SAT 96–100
--- NOTE | ~2024-04-02 | XR_ITS ---
EXAMINATION: XR chest 2V 04/02/2024 11:59 INDICATION: Shortness of breath PROCEDURE: 2 view chest COMPARISON: 01/29/2010 FINDINGS: The lungs are clear. The cardiomediastinal silhouette is within normal limits. There are no pleural effusions. There is no pneumothorax suspected. There are surgical clips of the right axi lla. IMPRESSION: 1: NO ACUTE CARDIOPULMONARY DISEASE. Reviewed, dictated and finalized at location B.
--- NOTE | ~2024-04-02 | CT_ITS ---
Non-contrast Head CT History: Headache Technique: Axial non-contrast imaging of the brain was performed. Dose reduction technique was used on this scan by utilizing automated exposure control and iterative reconstruction technique. The dose -length product (DLP) was 605.33 mGy-cm. Findings: There is no evidence of intracranial hemorrhage, mass lesion, or acute infarct. Brain par enchyma appears normal. The ventricles and subarachnoid spaces are normal in size. The calvarium ap pears normal. The visualized paranasal sinuses and mastoid air cells are clear. Impression: No significant abnormality seen. Reviewed, dictated and finalized at location . Impression: No significant abnormality seen.
--- NOTE | 2024-04-02 11:36 | ECG_ITS ---
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 Measurements Intervals [place] Rate: 93 P: 30 NE: 167 QRS: 26 QRSD: 86 T: 40 QT: 317 QTc: 396 Interpretive Statements SINUS RHYTHM NORMAL ECG No previous ECG available for comparison Electronically Signed On 04-03-2024 08:00:42 CDT by Gadiel Vuong M.D.
[2024-04-02 11:42] LABS: Basophils Absolute Auto 0.1 K/mm3 (0.0-0.1); Eosinophils Absolute Auto 0.2 K/mm3 (0-0.3); Eosinophils Percent Auto 2.8 % (0-4.4); Hematocrit 49.8 % (37.0-47.0); Hemoglobin 16.3 g/dL (12.0-15.0); Immature Granulocyte Absolute 0.01 K/mm3 (0.00-0.031); Immature Granulocyte Percent A 0.2 % (0-0.5); Lymphocytes Absolute Auto 1.63 K/mm3 (0.9-3.2); Lymphocytes Percent Auto 28.2 % (18.3-44.2); Mean Corpuscular HGB Conc 32.7 g/dl (32-36); Mean Corpuscular Volume 82.5 fl (80-100); Mean Platelet Volume 10.5 fl (7.4-10.4); Monocytes Absolute Auto 0.7 K/mm3 (0.1-0.6); Monocytes Percent Auto 11.6 % (2.6-8.5); Neutrophils Absolute Auto 3.2 K/mm3 (1.3-6.7); Neutrophils Percent Auto 56.2 % (45.5-73.1); Platelet Count Result 225 k/mm3 (150-375); Red Blood Count 6.04 M/mm3 (4.2-5.4); Red Cell Distribution Width 13.2 % (11.5-14.5); White Blood Count 5.8 K/mm3 (4.5-10.0)
[2024-04-02 11:54] LABS: INR 0.9; Prothrombin Time 12.7 Seconds (11.1-14.7)
[2024-04-02 11:55] LABS: Partial Thromboplastin Time 21.9 Seconds (22.3-36.8)
[2024-04-02 12:36] LABS: Influenza A QL RT-PCR Negative (Negative); Influenza B QL RT-PCR Negative (Negative); RSV RNA, RT-PCR Negative (Negative); SARS-CoV-2 RNA PCR Negative (Negative)
[2024-04-02 13:04] LABS: Strep Group A RT-PCR NOT DETECTED (Negative)
[2024-04-02] MEDS: SODIUM CHLORIDE 0.9% IV 1,000 ML 999 ML IV CONT (13:27)
--- NOTE | 2024-04-02 13:27 | ED.GENADULT ---
HPI - General Adult General Chief complaint: Shortness of Breath/Dyspnea Stated complaint: flu-like symptoms Time Seen by Provider: 04/02/24 12:15 History of Present Illness HPI narrative: this is a 48-year-old female presenting to ED with a chief complaint of headache. She has had symptoms for 3 days. She has had a pounding headache on the right side associated with phonophobia and photophobia also has some visual changes. Patient has history of migraines. Patient also has been having cough congestion and sore throat. Additionally she has body aches and says that she has chest heaviness. No nausea vomiting or diarrhea Related Data Home Medications Medication Instructions Recorded Confirmed fluticasone 250 mcg-salmeterol 50 1 inh inhalation BID 10/29/23 03/09/24 mcg/dose blistr powdr for inhalation (Advair Diskus) lansoprazole 15 mg capsule,delayed 10 mg PO DAILY 03/09/24 03/09/24 release multivitamin 1 tablet PO DAILY 03/09/24 03/09/24 omeprazole 40 mg capsule,delayed 40 mg PO DAILY 03/09/24 03/09/24 release progesterone micronized 100 mg 100 mg PO QAM 03/09/24 03/09/24 capsule Allergies Allergy/AdvReac Type Severity Reaction Status Date / Time nitrofurantoin Allergy Severe Swelling Verified 03/09/24 08:57 [From Macrobid] morphine Allergy Intermediate Rash Verified 03/09/24 08:57 erythromycin base Allergy Mild Flushing Verified 03/09/24 08:57 hydromorphone [From Dilaudid] Allergy Rash Verified 03/09/24 08:57 PMFSH Past Medical History Medical History Abdominal pain Abdominal pain Acute pharyngitis, unspecified Animal scabies Ankle sprain Anxiety B12 deficiency Breast mass, left Bronchitis Bug bite Chronic nausea Contact dermatitis COPD (chronic obstructive pulmonary disease) COVID COVID-19 Dysphagia Encounter for surgical aftercare following surgery on the skin and subcutaneous tissue Family history of osteoporosis Fever Headache Heel pain Hemorrhoid Hypoestrogenism Incisional hernia Left ankle pain Left ankle sprain Left knee pain Lipoma Lung nodule Mass of skin of abdomen MCL sprain of left knee Medial meniscus, posterior horn derangement Nausea Nausea 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 Overweight Pelvic pain Preventative health care Productive cough PUD (peptic ulcer disease) Rash Strep throat Suprapubic pain, acute Tick bites Umbilical pain URI (upper respiratory infection) UTI (urinary tract infection) Weight gain Surgical History Surgical History H/O excision of mass 03/12/21 excisional biopsy left breast mass measuring approximately 2 x 1 cm, right upper quadrant abdominal wall subcutaneous mass measuring approximately 3 x 2 cm, epigastric abdominal wall subcutaneous mass measuring approximately 2 x 1 cm H/O: hysterectomy History of abdominal surgery History of cholecystectomy History of knee surgery History of surgery cervix removed Hx of lymph node biopsy Ultrasound-guided wire localized excisional right axillary lymph node biopsy 01/07/24 Family History Family History Grandparent Diabetes mellitus Hypertension Family history of cardiovascular disease Cerebrovascular accident Family history of neuropathy Mother Hypertension Family history of cardiovascular disease Cerebrovascular accident Uterine cancer Father Diabetes mellitus Heart disease Cerebrovascular accident Hypertension Other Family history of arthritis Family history of seizure disorder Social History Social History Smoking packs per day: 0.25 Smoking cigarettes per day: 5.0 Years smoked: 10 Smoking pack-years: 2.50 Smoking status: Former smoker Tobacco type: cigarettes Second hand tobacco smoke exposure: No Smoking end date: 0
[2024-04-02] MEDS: ACETAMINOPHEN 500 MG TABLET 1000 MG PO (13:28)
[2024-04-02] MEDS: PROCHLORPERAZINE EDISYLATE 10 MG/2 ML VIAL IM (13:29)
[2024-04-02] MEDS: diphenhydrAMINE HCl INJ 50 MG/ML VIAL 25 MG IV PUSH (13:30)
[2024-04-02] MEDS: KETOROLAC 15 MG/ML VIAL (*BKC) IV PUSH (13:30)
[2024-04-02 13:47] LABS: Alanine Aminotransferase 21 U/L (6-35); Albumin Level 4.5 g/dL (3.5-5.1); Alkaline Phosphatase 90 U/L (38-126); Anion Gap 9 mmol/L (4-12); Aspartate Amino Transferase 21 U/L (14-36); Bilirubin,Total 0.6 mg/dL (0.2-1.3); Blood Urea Nitrogen 11 mg/dL (7-17); Calcium 9.4 mg/dL (8.4-10.2); Carbon Dioxide 22 mmol/L (22-30); Chloride 104 mmol/L (98-107); Estimated CRCL calculation 65 ml/min; Estimated Glomerular Filt Rate 59; Glucose 100 mg/dL (65-110); Lipase 51 U/L (23-300); Potassium 3.8 mmol/L (3.4-5.0); Sodium 135 mmol/L (137-145)
[2024-04-02 13:59] LABS: Troponin I < 0.012 ng/mL (0.000-0.034)
--- NOTE | 2024-04-02 14:44 | ECG_ITS ---
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 Measurements Intervals [place] Rate: 90 P: 35 CT: 145 QRS: 13 QRSD: 89 T: 31 QT: 338 QTc: 416 Interpretive Statements SINUS RHYTHM MINOR, NONSPECIFIC T-WAVE ABNORMALITY BORDERLINE ECG Compared to ECG 04/02/2024 11:33:11 MILD LATERAL T-WAVE FLATTENING Electronically Signed On 04-03-2024 08:03:59 CDT by Gadiel Vuong M.D.
[2024-04-02 15:08] LABS: Troponin I < 0.012 ng/mL (0.000-0.034)
[2024-04-02 15:40] LABS: Appearance Urine Cloudy (Clear); Bacteria Urine 1+ /hpf; Bilirubin Urine Negative (Negative); Blood Urine Negative (Negative); Color Urine Yellow (Yellow); Glucose Urine UA Negative (Negative); Ketones Urine Negative (Negative); Leukocyte Esterase Ur Negative LEU/UL (Negative); Nitrate Urine Negative (Negative); Non Pathogenic Casts 0-2; Protein Urine Negative (Negative); RBC Urine 0-2 /hpf (0-2); Specific Grav Ur 1.011 (1.001-1.035); Squamous Epithelial Cell Urine Many /hpf (Few); Urobilinogen Urine 0.2 mg/dL (<2.0); WBC Urine 0-5 /hpf (0-3)
[2024-04-02 15:42] LABS: Add Urine Microscopic? YES
== END 2024-04-02 15:58 | disposition home or self-care (01) ==
PROVIDERS: Emergency Medicine; Emergency Provider Emergency Medicine; PCP Nurse Practitioner
DX: B34.9 Viral infection, unspecified (principal); Z20.822 Contact with and (suspected) exposure to COVID-19; F41.9 Anxiety disorder, unspecified; J44.9 Chronic obstructive pulmonary disease, unspecified
CPT/HCPCS: 36415; 70450; 71046; 80053; 81001; 83690; 84484; 85025; 85610; 85730; 87637; 87651; 93005; 96361; 96372; 96374; 96375; 99284; A9270; J0780; J1200; J1885; J7030

== ENCOUNTER 2024-04-10 11:20 | Emergency (ER) | payer OTHER, SELFPAY ==
[2024-04-10] VITALS (7 sets, daily range): BP systolic 108–132; BP diastolic 69–89; PULSE 87–100; RESP 17–24; TEMP 36.8–37.2; O2SAT 94–100
--- NOTE | ~2024-04-10 | CT_ITS ---
EXAMINATION: CT soft tissue neck w con DATE: 04/10/2024 12:49 INDICATION: Swollen right tonsil. Throat swelling. Sore throat. TECHNIQUE: Computed tomography (CT) of the neck was performed with 75 mL Omnipaque-350 intravenous co ntrast. Automated exposure control and iterative reconstruction technique were employed. The dose-ezequiel gth product was 446.83 mGy-cm. COMPARISON: None FINDINGS: Right palatine tonsil is mildly larger than the right. No abscess. There is mild right inte rnal jugular chain lymphadenopathy. The largest and measures 13 x 17 mm. There is a 10 x 18 mm estima te of liver noted. The cervical carotid arteries are normal. There is severe cervical spondylosis. IMPRESSION: 1. Mildly enlarged right palatine tonsil, which may be inflammation/infection. No abscess. 2. Mild right high internal jugular and submandibular lymphadenopathy, likely reactive. Reviewed, dictated and finalized at location E. IMPRESSION: 1. Mildly enlarged right palatine tonsil, which may be inflammation/infection. No abscess. 2. Mild right high internal jugular and submandibular lymphadenopathy, likely r eactive.
[2024-04-10 12:06] LABS: Basophils Absolute Auto 0.1 K/mm3 (0.0-0.1); Basophils Percent Auto 1.1 % (0.2-1.2); Eosinophils Absolute Auto 0.1 K/mm3 (0-0.3); Eosinophils Percent Auto 1.3 % (0-4.4); Hematocrit 46.4 % (37.0-47.0); Hemoglobin 15.6 g/dL (12.0-15.0); Immature Granulocyte Absolute 0.02 K/mm3 (0.00-0.031); Immature Granulocyte Percent A 0.2 % (0-0.5); Lymphocytes Absolute Auto 2.83 K/mm3 (0.9-3.2); Mean Corpuscular HGB Conc 33.6 g/dl (32-36); Mean Corpuscular Hemoglobin 26.9 pg (26-34); Mean Corpuscular Volume 80.1 fl (80-100); Mean Platelet Volume 9.6 fl (7.4-10.4); Monocytes Absolute Auto 0.5 K/mm3 (0.1-0.6); Monocytes Percent Auto 5.8 % (2.6-8.5); Neutrophils Absolute Auto 4.8 K/mm3 (1.3-6.7); Neutrophils Percent Auto 57.6 % (45.5-73.1); Platelet Count Result 277 k/mm3 (150-375); Red Blood Count 5.79 M/mm3 (4.2-5.4); Red Cell Distribution Width 12.5 % (11.5-14.5); White Blood Count 8.3 K/mm3 (4.5-10.0)
--- NOTE | 2024-04-10 12:08 | PC.NURSE ---
Pt states unable to swallow own secretions, sensation of throat closing . Noted garble speech.
[2024-04-10 12:30] LABS: Alanine Aminotransferase 16 U/L (6-35); Albumin Level 4.6 g/dL (3.5-5.1); Alkaline Phosphatase 100 U/L (38-126); Anion Gap 13 mmol/L (4-12); Aspartate Amino Transferase 25 U/L (14-36); Bilirubin,Total 0.7 mg/dL (0.2-1.3); Blood Urea Nitrogen 20 mg/dL (7-17); Calcium 9.3 mg/dL (8.4-10.2); Carbon Dioxide 23 mmol/L (22-30); Chloride 102 mmol/L (98-107); Estimated CRCL calculation 55 ml/min; Estimated Glomerular Filt Rate 53; Glucose 74 mg/dL (65-110); Potassium 4.2 mmol/L (3.4-5.0); Sodium 138 mmol/L (137-145)
[2024-04-10 12:37] LABS: Atypical Lymphocytes Present; Platelet Estimate Adequate (Adequate); Schistocytes None Seen
--- NOTE | 2024-04-10 12:46 | ED.GENADULT ---
HPI - General Adult General Chief complaint: Unspecified Stated complaint: SOB Time Seen by Provider: 04/10/24 11:33 History of Present Illness HPI narrative: 48-year-old female presenting to the emergency department for evaluation for increased sore throat. Patient initially seen in the emergency department and diagnosed with a viral sore throat. Patient then had follow-up with primary care physician was diagnosed with [id number] even though she has no hand or foot involvement. Patient presents to ED today complaining of worsening sore throat and decreased p.o. intake. Related Data Home Medications Medication Instructions Recorded Confirmed fluticasone 250 mcg-salmeterol 50 1 inh inhalation BID 10/29/23 04/04/24 mcg/dose blistr powdr for inhalation (Advair Diskus) lansoprazole 15 mg capsule,delayed 10 mg PO DAILY 03/09/24 04/04/24 release multivitamin 1 tablet PO DAILY 03/09/24 04/04/24 omeprazole 40 mg capsule,delayed 40 mg PO DAILY 03/09/24 04/04/24 release progesterone micronized 100 mg 100 mg PO QAM 03/09/24 04/04/24 capsule Allergies Allergy/AdvReac Type Severity Reaction Status Date / Time nitrofurantoin Allergy Severe Swelling Verified 04/10/24 11:40 [From Macrobid] morphine Allergy Intermediate Rash Verified 04/10/24 11:40 erythromycin base Allergy Mild Flushing Verified 04/10/24 11:40 hydromorphone [From Dilaudid] Allergy Rash Verified 04/10/24 11:40 Review of Systems Review of Systems: All systems reviewed & are unremarkable except as noted in HPI and below PMFSH Past Medical History Medical History Abdominal pain Abdominal pain Acute pharyngitis, unspecified Animal scabies Ankle sprain Anxiety B12 deficiency Breast mass, left Bronchitis Bug bite Chronic nausea Contact dermatitis COPD (chronic obstructive pulmonary disease) COVID COVID-19 Dysphagia Encounter for surgical aftercare following surgery on the skin and subcutaneous tissue Family history of osteoporosis Fever Headache Heel pain Hemorrhoid Hypoestrogenism Incisional hernia Left ankle pain Left ankle sprain Left knee pain [place] Lung nodule Mass of skin of abdomen MCL sprain of left knee Medial meniscus, posterior horn derangement Nausea Nausea 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 mcfp (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 Overweight Pelvic pain Preventative health care Productive cough PUD (peptic ulcer disease) Rash Strep throat Suprapubic pain, acute Tick bites Umbilical pain URI (upper respiratory infection) UTI (urinary tract infection) Weight gain Surgical History Surgical History H/O excision of mass 03/12/21 excisional biopsy left breast mass measuring approximately 2 x 1 cm, right upper quadrant abdominal wall subcutaneous mass measuring approximately 3 x 2 cm, epigastric abdominal wall subcutaneous mass measuring approximately 2 x 1 cm H/O: hysterectomy History of abdominal surgery History of cholecystectomy History of knee surgery History of surgery cervix removed Hx of lymph node biopsy Ultrasound-guided wire localized excisional right axillary lymph node biopsy 01/07/24 Family History Family History Grandparent Diabetes mellitus Hypertension Family history of cardiovascular disease Cerebrovascular accident Family history of neuropathy Mother Hypertension Family history of cardiovascular disease Cerebrovascular accident Uterine cancer Father Diabetes mellitus Heart disease Cerebrovascular accident Hypertension Other Family history of arthritis Family history of seizure disorder Social History Social History Smoking packs per day: 0.25 Smoking cigarettes per day: 5.0 Years smoked: 10 Smoking pack-years: 2.50 Smoking status: Former smoker Tobacco type: cigarette
[2024-04-10 12:47] LABS: Strep Group A RT-PCR NOT DETECTED (Negative)
[2024-04-10 12:58] LABS: Influenza A QL RT-PCR Negative (Negative); Influenza B QL RT-PCR Negative (Negative); RSV RNA, RT-PCR Negative (Negative); SARS-CoV-2 RNA PCR Negative (Negative)
[2024-04-10] MEDS: SODIUM CHLORIDE 0.9% IV 1,000 ML 999 ML IV CONT (13:24)
[2024-04-10] MEDS: fentaNYL CITRATE INJ (*CRX) 100 MCG/2 ML VIAL 50 MCG IV PUSH (13:25)
[2024-04-10] MEDS: dexAMETHasone SOD PHOS INJ 10 MG/ML 1 ML VIAL IV PUSH (13:43)
[2024-04-10] MEDS: AMOXICILLIN/CLAVULANATE K 875-125 MG TAB 1 TABLET PO (13:43)
[2024-04-10] MEDS: ONDANSETRON INJ 4 MG/2 ML VIAL IV PUSH (14:01)
== END 2024-04-10 14:17 | disposition home or self-care (01) ==
PROVIDERS: Emergency Provider Emergency Medicine; PCP Internal Medicine
DX: J03.90 Acute tonsillitis, unspecified (principal); Z20.822 Contact with and (suspected) exposure to COVID-19; F41.9 Anxiety disorder, unspecified; J44.9 Chronic obstructive pulmonary disease, unspecified
CPT/HCPCS: 36415; 70491; 80053; 85025; 87637; 87651; 96361; 96374; 96375; 99284; A9270; J1100; J2405; J3010; J7030; Q9967

== ENCOUNTER 2024-05-23 00:53 | Day surgery (SDC) | payer OTHER, SELFPAY ==
--- NOTE | 2024-05-17 11:04 | PC.NURSE ---
Report to the Outpatient Waiting Room, entrance under the green pavilion located off [facility], at time _1130_ on date _[id number]_. Planned Procedure Time: _130pm_. Time changes happen often and if your time is changed the preop area will call you the afternoon before. - You and your visitor will be asked to self-screen and do not enter if you have any COVID symptoms. - A mask is optional within the hospital at this time. Patients may have clear liquids (water, carbonated beverages, clear teas, apple juice) until 3 hours prior to surgery with a maximum of 20 ounces. - No food from midnight until time of surgery. Take the following medications with a SIP of water the morning of surgery: Advair and inhalers if needed. DO NOT STOP ANY OF YOUR OTHER PRESCRIPTION MEDICATIONS PRIOR TO SURGERY ?EXCEPT THE FOLLOWING Medications to discontinue per physician Multivitamin Date to take last btos__14-18-1421 Vzyoomk has stopped Ibuprofen in preparation for surgery. Please no make-up, nail maltese, hairspray, perfume, deodorant, or body powder the day of surgery. No jewelry (including any body piercings) or valuables the day of surgery, leave them at home. Please take a shower or bath the night before, or the morning of, surgery with an antibacterial soap. Wear comfortable, loose fitting clothing. - Jewelry must be removed prior to entering the operating room. Rings and piercings that are not removed may be cut off. - The hospital will not accept responsibility for valuables. - Please leave all valuables, including medications, at home the day of surgery. If you are going home after surgery, a licensed fork truck driver must drive you home. - NO public transportation without another adult if you receive anesthesia. - We recommend that an adult stay with you for 24 hours following discharge. - We also recommend that you do not drive, make important decision, drink alcoholic beverages, or take any drugs that were not prescribed by your health care provider for at least 24 hours after your discharge time. Follow any additional instructions given to you from your surgeon. If you or anyone in your household have experienced Covid symptoms in the past week, please notify your surgeon or the nurse liaison at the phone number below for possible testing. Telephone instructions given to _Kim__and asked if any additional questions and then verbalized understanding. Patient advised to call surgeon office or pre surgery nurse liaison [phone] if any additional questions.
--- NOTE | 2024-05-22 11:16 | PM.IMHP ---
H&P: HPI History of Present Illness Date/Time: 05/22/24 11:16 Chief Complaint: Recurrent tonsillitis snoring adenoid hypertrophy Narrative: planned procedure [facility] Past Medical History Medical History Abdominal pain Abdominal pain Acute pharyngitis, unspecified Animal scabies Ankle sprain Anxiety B12 deficiency Breast mass, left Bronchitis Bug bite Chronic nausea Contact dermatitis COPD (chronic obstructive pulmonary disease) COVID COVID-19 Dysphagia Encounter for surgical aftercare following surgery on the skin and subcutaneous tissue Family history of osteoporosis Fever Headache Heel pain Hemorrhoid Hypoestrogenism Incisional hernia Left ankle pain Left ankle sprain Left knee pain [place] Lung nodule Mass of skin of abdomen MCL sprain of left knee Medial meniscus, posterior horn derangement Nausea Nausea Other residential (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 Overweight Pelvic pain Preventative health care Productive cough PUD (peptic ulcer disease) Rash Strep throat Suprapubic pain, acute Tick bites Umbilical pain URI (upper respiratory infection) UTI (urinary tract infection) Weight gain Surgical History Surgical History H/O excision of mass 03/12/21 excisional biopsy left breast mass measuring approximately 2 x 1 cm, right upper quadrant abdominal wall subcutaneous mass measuring approximately 3 x 2 cm, epigastric abdominal wall subcutaneous mass measuring approximately 2 x 1 cm H/O: hysterectomy History of abdominal surgery History of cholecystectomy History of knee surgery History of surgery cervix removed Hx of lymph node biopsy Ultrasound-guided wire localized excisional right axillary lymph node biopsy 01/07/24 Family History Family History Grandparent Diabetes mellitus Hypertension Family history of cardiovascular disease Cerebrovascular accident Family history of neuropathy Mother Hypertension Family history of cardiovascular disease Cerebrovascular accident Uterine cancer Father Diabetes mellitus Heart disease Cerebrovascular accident Hypertension Other Family history of arthritis Family history of seizure disorder Social History Social History Smoking packs per day: 0.25 Smoking cigarettes per day: 5.0 Years smoked: 10 Smoking pack-years: 2.50 Smoking status: Never smoker Tobacco type: cigarettes Second hand tobacco smoke exposure: No Smoking end date: 10/25/10 Additional smoking assessment comments: STATES SOCIAL SMOKER FOR 7 YEARS, 1PK EVERY 2-3 WEEKS, QUIT 2010 Alcohol intake: never Alcohol use details: 4 per year Substance use: never Substance use type: does not use Do You Feel Safe in your Home?: No Lack of Transportation: No Lack of Food: Sometimes True Current Housing: I Have Housing Concerned About Future Housing: Decline to Answer Difficulty Paying Gas/Electric Bills: YES Difficulty Paying for Meds: YES Currently Unemployed: Decline to Answer Education: Trade/Vocational Certificate Difficulty w/ Childcare or Family Care: No Living arrangements: with family 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
[2024-05-23] VITALS (12 sets, daily range): BP systolic 108–135; BP diastolic 63–84; PULSE 67–94; RESP 14–20; TEMP 36.4–36.6; O2SAT 94–100
--- NOTE | 2024-05-23 07:13 | WPDHPUPDATE1 ---
History and Physical Update Update Date/Time: 05/23/24 07:13 History and Physical has been reviewed, including an updated exam of the patient. There are NO changes in the patient's condition. Risks, benefits, and alternatives have been discussed and questions answered. Patient agrees to proceed with procedure.
[2024-05-23] MEDS: ACETAMINOPHEN 500 MG TABLET 1000 MG PO (12:10)
--- NOTE | 2024-05-23 12:40 | WPDANESEPPF ---
Anes - Initial Pre Proc Eval Procedure: Operation Date: 05/23/24 13:30 Proposed Procedures p Tonsillectomy And Adenoidectomy - Hieu Blunt MD Date/Time: 05/23/24 12:40 Surgeon: Hieu Blunt MD Pre Op Diagnosis: chronic tonsillitis, adenoid hypertrophy Patient Data Age: 49 Gender: F Height: 1.63 m Weight: 80.7 kg Last Vital Signs Temp 36.6 C 05/23/24 12:28 Pulse 82 05/23/24 12:28 Resp 14 05/23/24 12:28 BP 133/84 05/23/24 12:28 Pulse Ox 97 05/23/24 12:28 O2 Del Method Room Air 05/23/24 12:28 Allergies Allergy/AdvReac Type Severity Reaction Status Date / Time nitrofurantoin Allergy Severe Swelling Verified 05/23/24 12:34 [From Macrobid] morphine Allergy Intermediate Rash Verified 05/23/24 12:34 erythromycin base Allergy Mild Flushing Verified 05/23/24 12:34 hydromorphone [From Dilaudid] Allergy Rash Verified 05/23/24 12:34 Home Medications Medication Instructions Recorded Confirmed Type albuterol sulfate 2.5 mg/3 mL 2.5 mg (3 mL) inhalation Q6H PRN 10/08/22 05/17/24 Rx (0.083 %) solution for nebulization Shortness Of Breath Or Wheezing #75 mL albuterol sulfate 90 mcg/actuation 2 puff inhalation QID PRN 10/13/23 05/17/24 Rx aerosol inhaler shortness of breath or wheezing #8.5 grams fluticasone 250 mcg-salmeterol 50 1 inh inhalation BID 10/29/23 05/17/24 History mcg/dose blistr powdr for inhalation (Advair Diskus) atorvastatin 10 mg tablet 10 mg PO QHS #90 tabs 03/09/24 05/17/24 Rx multivitamin 1 tablet PO DAILY 03/09/24 05/17/24 History progesterone micronized 100 mg 100 mg PO QAM 03/09/24 05/17/24 History capsule ibuprofen 800 mg tablet 800 mg PO TID PRN pain 7 days #21 04/02/24 05/17/24 Rx tabs ondansetron 4 mg disintegrating 4 mg PO Q6H PRN nausea and 04/04/24 05/17/24 Rx tablet vomiting #30 tabs acetaminophen 500 mg tablet 1,000 mg PO TID PRN Pain 05/17/24 05/17/24 History oxycodone 5 mg tablet 5 mg PO Q8H PRN pain #30 tabs 05/23/24 Rx Patient hx anesthesia problems: none Family hx anesthesia problems: none Results Review: All pre-operative results and documents have been reviewed as part of the pre-operative evaluation. [facility] Past Medical History Medical History Abdominal pain Abdominal pain Acute pharyngitis, unspecified Animal scabies Ankle sprain Anxiety B12 deficiency Breast mass, left Bronchitis Bug bite Chronic nausea Contact dermatitis COPD (chronic obstructive pulmonary disease) COVID COVID-19 Dysphagia Encounter for surgical aftercare following surgery on the skin and subcutaneous tissue Family history of osteoporosis Fever Headache Heel pain Hemorrhoid Hypoestrogenism Incisional hernia Left ankle pain Left ankle sprain Left knee pain Lipoma Lung nodule Mass of skin of abdomen MCL sprain of left knee Medial meniscus, posterior horn derangement Nausea Nausea 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 Overweight Pelvic pain Preventative health care Productive cough PUD (peptic ulcer disease) Rash Strep throat Suprapubic pain, acute Tick bites Umbilical pain URI (upper respiratory infection) UTI (urinary tract infection) Weight gain Surgical History Surgical History H/O excision of mass 03/12/21 excisional biopsy left breast mass measuring approximately 2 x 1 cm, right upper quadrant abdominal wall subcutaneous mass measuring approximately 3 x 2 cm, epigastric abdominal wall subcutaneous mass measuring approximately 2 x 1 cm H/O: hysterectomy History of abdominal surgery History of cholecystectomy History of knee surgery History of surgery cervix removed Hx of lymph node biopsy Ultrasound-guided wire localized excisional right axillary lymph node biopsy 01/07/24 Family History Family History Grandparent Diabetes mellitus Hy
[2024-05-23] MEDS: LACTATED RINGERS 1,000 ML 30 ML IV CONT ×3 (14:16→15:28)
[2024-05-23] MEDS: fentaNYL CITRATE INJ (*CRX) 100 MCG/2 ML VIAL 25 MCG IV PUSH ×5 (14:37→15:36)
--- NOTE | 2024-05-23 14:39 | P.OP_ITS ---
Procedure Note - Detailed Date of Procedure 05/23/24 Pre-op Diagnosis chronic tonsillitis , recurrent tonsillitis Post-op Diagnosis Same Procedure Performed tonsillectomy Surgeon Hieu Blunt MD Anesthesia General Indications see above Description of Procedure really scarred in tonsils minimal bleeding no adenoids, those were the findings. Description of procedure. Patient identified consent verified preop. Patient brought to the operating. Time-out performed. General anesthesia induced endotracheal tube secured. Patient prepped draped position procedure confirmed 2nd time-out performed. McIvor mouth gag inserted to reveal tonsils that appeared scarred in. Removed bilaterally in the extracapsular plane using Bovie electrocautery setting of 8 and 10. Any bleeding was controlled bipolar electrocautery setting of 8 and Bovie suction electrocautery setting of 10. In- between tonsils McIvor mouth gag lowered reopened allow blood flow to return to the tongue. After the tonsils were out McIvor mouth gag was lowered reopened revealed no further bleeding. Red rubber catheters inserted transnasally suspended anteriorly adenoid pad viewed non-existent red rubber catheters removed. Again no more bleeding from the tonsils total blood loss 1 cc all hardware red rubber catheters removed. I performed all dictated portions procedure no complications care the patient back to Anesthesiology patient taken to PACU. Estimated Blood Loss 1 Drains No Packing No Pathology Yes Complications No immediate complications Condition Stable Disposition PACU [facility] Billing Surgery - Charge Forward: Surgery Billing
[2024-05-23] MEDS: ONDANSETRON INJ 4 MG/2 ML VIAL IV PUSH (15:01)
[2024-05-23] MEDS: oxyCODONE HCL (*CRX) 5 MG TAB IR PO (16:14)
== END 2024-05-23 17:15 | disposition home or self-care (01) ==
PROVIDERS: PCP Internal Medicine; Visit Provider Otolaryngology
PROC: (CPT 42821; principal; 2024-05-23 13:30)
DX: J35.01 Chronic tonsillitis (principal); A42.89 Other forms of actinomycosis; J44.9 Chronic obstructive pulmonary disease, unspecified; Z87.891 Personal history of nicotine dependence; Z79.51 Long term (current) use of inhaled steroids; E66.9 Obesity, unspecified; Z68.30 Body mass index [BMI] 30.0-30.9, adult
CPT/HCPCS: 42821; 88302; A9270; J0330; J1100; J2250; J2405; J2704; J3010; J7120

== ENCOUNTER 2024-05-30 11:15 | Outpatient (CLI) | payer OTHER, SELFPAY ==
[2024-05-30 11:37] LABS: Basophils Absolute Auto 0.1 K/mm3 (0.0-0.1); Basophils Percent Auto 1.3 % (0.2-1.2); Eosinophils Absolute Auto 0.1 K/mm3 (0-0.3); Eosinophils Percent Auto 1.7 % (0-4.4); Hematocrit 43.5 % (37.0-47.0); Hemoglobin 14.4 g/dL (12.0-15.0); Immature Granulocyte Absolute 0.01 K/mm3 (0.00-0.031); Immature Granulocyte Percent A 0.2 % (0-0.5); Lymphocytes Absolute Auto 2.42 K/mm3 (0.9-3.2); Lymphocytes Percent Auto 40.3 % (18.3-44.2); Mean Corpuscular HGB Conc 33.1 g/dl (32-36); Mean Corpuscular Hemoglobin 27.7 pg (26-34); Mean Corpuscular Volume 83.8 fl (80-100); Monocytes Absolute Auto 0.5 K/mm3 (0.1-0.6); Monocytes Percent Auto 8.8 % (2.6-8.5); Neutrophils Absolute Auto 2.9 K/mm3 (1.3-6.7); Neutrophils Percent Auto 47.7 % (45.5-73.1); Platelet Count Result 287 k/mm3 (150-375); Red Blood Count 5.19 M/mm3 (4.2-5.4); Red Cell Distribution Width 13.2 % (11.5-14.5)
[2024-05-30 12:59] LABS: Anion Gap 11 mmol/L (4-12); Blood Urea Nitrogen 13 mg/dL (7-17); Calcium 9.3 mg/dL (8.4-10.2); Carbon Dioxide 26 mmol/L (22-30); Chloride 100 mmol/L (98-107); Estimated Glomerular Filt Rate > 60; Glucose 98 mg/dL (65-110); Potassium 4.3 mmol/L (3.4-5.0); Sodium 137 mmol/L (137-145)
[2024-05-30 13:14] LABS: Iron 106 ug/dL (37-170)
[2024-05-30 13:23] LABS: Percent Iron Saturation 30 % (20-50)
== END 2024-05-30 11:16 | disposition home or self-care (01) ==
LOC: ANHLAB 11:18
PROVIDERS: Nurse Practitioner Family; PCP Internal Medicine; Visit Provider Internal Medicine Hematology & Oncology
DX: D50.9 Iron deficiency anemia, unspecified (principal)
CPT/HCPCS: 36415; 80048; 82607; 82728; 83540; 83550; 85025

== ENCOUNTER 2024-07-01 18:43 | Emergency (ER) | payer OTHER, SELFPAY ==
--- NOTE | ~2024-07-01 | XR_ITS ---
XR foot LT min 3V DATE: 07/01/2024 19:07 INDICATION: Injury, pain TECHNIQUE: 4 views COMPARISON: None FINDINGS: No fracture or dislocation, periosteal reaction or bone destruction. Joint spaces are prese rved. No erosive change. IMPRESSION: Negative Reviewed, dictated and finalized at location A. IMPRESSION: Negative
[2024-07-01 18:53] VITALS: BP 143/90; PULSE 54; RESP 16; TEMP 36.3; O2SAT 100
--- NOTE | 2024-07-01 19:49 | ED.LOWEXIN ---
HPI - Extremity Injury (Lower) General Chief Complaint: Extremity Injury, Lower Stated Complaint: Left foot injury Time Seen by Provider: 07/01/24 19:15 Source: patient, RN notes reviewed and old records reviewed Mode of arrival: ambulatory Limitations: no limitations History of Present Illness HPI Narrative: 49-year-old female to [facility] for complaint of left distal dorsal foot pain and severe pain to the 4th digit of left foot. Patient also states laceration to plantar surface of 4th digit left foot. Patient arrives with dressing present. No active bleeding. Patient endorses dropping large cabinet door onto distal dorsal foot 4-5 hours prior to arrival. Patient resting in exam room in mild distress from pain. Respirations even and nonlabored. Patient in no acute distress. Related Data Home Medications Medication Instructions Recorded Confirmed multivitamin 1 tablet PO DAILY 03/09/24 05/17/24 acetaminophen 500 mg tablet 1,000 mg PO TID PRN Pain 05/17/24 05/17/24 Allergies Allergy/AdvReac Type Severity Reaction Status Date / Time nitrofurantoin Allergy Severe Swelling Verified 05/23/24 12:34 [From Macrobid] morphine Allergy Intermediate Rash Verified 05/23/24 12:34 erythromycin base Allergy Mild Flushing Verified 05/23/24 12:34 hydromorphone [From Dilaudid] Allergy Rash Verified 05/23/24 12:34 Review of Systems Review of Systems: All systems reviewed & are unremarkable except as noted in HPI and below Constitutional: Constitutional: Reports no additional constitutional complaints Eyes: Eyes: Reports no additional eye complaints ENT: Reports system reviewed and no additional complaints, except as documented Cardiovascular: Cardiovascular: Reports no additional cardiovascular complaints, Denies chest pain and Denies dyspnea Respiratory: Respiratory: Reports no additional respiratory complaints, Denies cough and Denies dyspnea Musculoskeletal: Musculoskeletal: Reports as per HPI Comments: Left distal foot pain, 4th digit left foot pain Integumentary/Breasts: Skin/Breast: Reports as per HPI ( laceration to plantar surface 4th digit left foot) Neurologic: Reports system reviewed and no additional complaints, except as documented Psychiatric: Psychiatric: Reports no additional psychiatric complaints PMFSH Past Medical History Medical History Abdominal pain Abdominal pain Acute pharyngitis, unspecified Animal scabies Ankle sprain Anxiety B12 deficiency Breast mass, left Bronchitis Bug bite Chronic nausea Contact dermatitis COPD (chronic obstructive pulmonary disease) COVID COVID-19 Dysphagia Encounter for surgical aftercare following surgery on the skin and subcutaneous tissue Family history of osteoporosis Fever Headache Heel pain Hemorrhoid Hypoestrogenism Incisional hernia Left ankle pain Left ankle sprain Left knee pain Lipoma Lung nodule Mass of skin of abdomen MCL sprain of left knee Medial meniscus, posterior horn derangement Nausea Nausea 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 Overweight Pelvic pain Preventative health care Productive cough PUD (peptic ulcer disease) Rash Strep throat Suprapubic pain, acute Tick bites Umbilical pain URI (upper respiratory infection) UTI (urinary tract infection) Weight gain Surgical History Surgical History H/O excision of mass 03/12/21 excisional biopsy left breast mass measuring approximately 2 x 1 cm, right upper quadrant abdominal wall subcutaneous mass measuring approximately 3 x 2 cm, epigastric abdominal wall subcutaneous mass measuring approximately 2 x 1 cm H/O: hysterectomy History of abdominal surgery History of cholecystectomy History of knee surgery History of surgery cervix removed Hx of lymph node biopsy Ultrasound-guided wire localized excisional right axillary lymph node biopsy 01/06
== END 2024-07-01 19:49 | disposition home or self-care (01) ==
PROVIDERS: Emergency Provider Nurse Practitioner Family; PCP Family Medicine
DX: S91.115A Laceration without foreign body of left lesser toe(s) without damage to nail, initial encounter (principal); W20.8XXA Other cause of strike by thrown, projected or falling object, initial encounter; S90.32XA Contusion of left foot, initial encounter; Z87.891 Personal history of nicotine dependence; J44.9 Chronic obstructive pulmonary disease, unspecified; Z86.16 Personal history of COVID-19
CPT/HCPCS: 12001; 73630; 99213; A9270; G0463

== ENCOUNTER 2024-07-11 13:30 | Outpatient (CLI) | payer OTHER, SELFPAY ==
--- NOTE | ~2024-07-11 | XR_ITS ---
XR foot LT min 3V Ordering provider: Aruna Benitez NP History: . M79.672 - Pain in left foot . Comparison: None. FINDINGS: BONES: No acute fracture or dislocation. JOINT SPACES: Normal. No tarsal coalition. SOFT TISSUES: Normal. IMPRESSION: No acute osseous abnormality left foot. Reviewed, dictated and finalized at location A.
== END 2024-07-11 13:31 | disposition home or self-care (01) ==
PROVIDERS: PCP Clinical Nurse Specialist; Visit Provider Nurse Practitioner
DX: M79.672 Pain in left foot (principal)
CPT/HCPCS: 73630

== ENCOUNTER 2024-10-02 08:15 | Emergency (ER) | payer OTHER, SELFPAY ==
[2024-10-02 08:22] VITALS: BP 147/91; PULSE 105; RESP 20; TEMP 36.3; O2SAT 100
--- NOTE | 2024-10-02 08:26 | ED.URI ---
HPI - URI/Sore Throat General Chief Complaint: Upper Respiratory Infection Stated Complaint: head congestion Time Seen by Provider: 10/02/24 08:26 Source: patient Mode of arrival: ambulatory Limitations: no limitations History of Present Illness HPI Narrative: 49-year-old female presents with complaint of nasal congestion, sinus congestion and pressure, sinus headaches, cough and fatigue. Symptoms for 10 days. Reports symptoms getting progressively worse. Has had increased sinus pressure, low-grade fever for the past 2-3 days. Has tried [id number] Mucinex, DayQuil NyQuil. Chest pain or shortness of breath. History of bacterial sinusitis. All Systems reviewed and negative except as noted above. Related Data Allergies Allergy/AdvReac Type Severity Reaction Status Date / Time nitrofurantoin Allergy Severe Swelling Verified 07/11/24 13:10 [From Macrobid] morphine Allergy Intermediate Rash Verified 07/11/24 13:10 erythromycin base Allergy Mild Flushing Verified 07/11/24 13:10 hydromorphone [From Dilaudid] Allergy Rash Verified 07/11/24 13:10 Review of Systems Review of Systems: CONSTITUTIONAL: reports fever, fatigue. EYES: Denies visual changes, redness, or discharge. ENT: reports rhinorrhea, congestion sinus pressure, sinus headaches. Denies sore throat, or otalgia. CARDIOVASCULAR: Denies chest pain, palpitations, or edema. RESPIRATORY: Reports cough . Denies dyspnea. GASTROINTESTINAL: Denies abdominal pain, nausea, vomiting, or diarrhea. GENITOURINARY: Denies dysuria or hematuria. SKIN: Denies rash or itching. MUSCULOSKELETAL: Denies back pain, joint pain, or myalgia. NEUROLOGIC: Denies headache, numbness, or weakness. PSYCHIATRIC: Denies anxiety or depression. All other systems reviewed are negative, except as documented in HPI. [facility] Past Medical History Medical History (Updated 10/02/24 @ 08:35 by Nancy Lambert NP) Abdominal pain Abdominal pain Acute pharyngitis, unspecified Animal scabies Ankle sprain Anxiety B12 deficiency Breast mass, left Bronchitis Bug bite Chronic nausea Contact dermatitis COPD (chronic obstructive pulmonary disease) COVID COVID-19 Dysphagia Encounter for surgical aftercare following surgery on the skin and subcutaneous tissue Family history of osteoporosis Fever Headache Heel pain Hemorrhoid Hypoestrogenism Incisional hernia Left ankle pain Left ankle sprain Left knee pain Lipoma Lung nodule Mass of skin of abdomen MCL sprain of left knee Medial meniscus, posterior horn derangement Nausea Nausea 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 Overweight Pelvic pain Preventative health care Productive cough PUD (peptic ulcer disease) Rash Strep throat Suprapubic pain, acute Tick bites Umbilical pain URI (upper respiratory infection) UTI (urinary tract infection) Weight gain Surgical History Surgical History (Updated 07/11/24 @ 13:13 by Letty Jones [facility]) H/O excision of mass 03/12/21 excisional biopsy left breast mass measuring approximately 2 x 1 cm, right upper quadrant abdominal wall subcutaneous mass measuring approximately 3 x 2 cm, epigastric abdominal wall subcutaneous mass measuring approximately 2 x 1 cm H/O: hysterectomy History of abdominal surgery History of cholecystectomy History of knee surgery History of surgery cervix removed History of tonsillectomy Hx of lymph node biopsy Ultrasound-guided wire localized excisional right axillary lymph node biopsy 01/07/24 Family History Family History Grandparent Diabetes mellitus Hypertension Family history of cardiovascular disease Cerebrovascular accident Family history of neuropathy Mother Hypertension Family history of cardiovascular disease Cerebrovascular accident Uterine cancer Father Diabetes mellitus Heart disease Cerebrovascular accident Hypertension Other Family history of arthritis Family history of seizure disorder Social History Social History (Updated 07/11/24 @ 13:19 by Letty Jones [facility]) Smoking packs per day: 0.25 Smoking cigarettes per day: 5.0 Years smoked: 10 Smoking pack-years: 2.50 Smoking status: Never smoker Tobacco type: cigarettes Second hand tobacco smoke exposure: No Smoking end date: 10/25/10 Additional smoking assessment comments: STATES SOC[employer] SMOKER FOR 7 YEARS, 1PK EVERY 2-3 WEEKS, QUIT 2010 Alcohol intake: never Alcohol use details: 4 per year Substance use: never Substance use type: does not use Do You Feel Safe in your Home?: Yes Lack of Transportation: No Lack of Food: Sometimes True Current Housing: I Have Housing Concerned About Future Housing: No Difficulty Paying Gas/Electric Bills: YES Difficulty Paying for Meds: YES Currently Unemployed: No Education: Trade/Vocational Certificate Difficulty w/ Childcare or Family Care: No Living arrangements: with family 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 There is no relevant family history pertinent to the presenting complaint. Exam Narrative: GENERAL: This is a well-nourished, well-developed patient, ill-appearing but no acute distress. HEAD: normocephalic, atraumatic. EYES: PERRL. Sclera clear/white. Vision is grossly intact. EARS: External ears normal, auditory canals clear and without drainage, TMs normal without perforation. Hearing grossly intact. NOSE: External nose normal with Purulent nasal drainage, erythema and swelling to bilateral nares, bilateral maxillary sinus tenderness on palpation THROAT: Mucous membranes moist, erythema, mild swelling, postnasal drainage NECK: Neck supple, non-tender without lymphadenopathy, masses or thyromegaly. CARDIOVASCULAR: Regular rate and rhythm without murmurs, gallops, or rubs. RESPIRATORY: Clear to auscultation. Breath sounds equal bilaterally. No wheezes, rales, or rhonchi. SKIN: warm, Dry, intact with no suspicious lesions or rash, good texture and turgor. NEURO: awake, alert, and oriented to person, place and time. There were no obvious focal neurologic abnormalities. EXTREMITIES: No joint tenderness, effusion, or edema noted. Course Course Level of Care: Express Care Visit Vital Signs Vital signs: Vital Signs Temperature 36.3 C L 10/02/24 08:22 Pulse Rate 105 H 10/02/24 08:22 Respiratory Rate 20 10/02/24 08:22 Blood Pressure 147/91 H 10/02/24 08:22 Pulse Oximetry 100 10/02/24 08:22 Oxygen Delivery Room Air 10/02/24 08:22 Temperature 36.3 C L 10/02/24 08:22 Pulse Rate 105 H 10/02/24 08:22 Respiratory Rate 20 10/02/24 08:22 Blood Pressure 147/91 H 10/02/24 08:22 Pulse Oximetry 100 10/02/24 08:22 Oxygen Delivery Room Air 10/02/24 08:22 Reviewed MDM - URI/Sore Throat MDM Narrative Medical decision making narrative: will treat patient for bacterial sinusitis due to duration of symptoms and exam findings. Patient is aware of diagnosis, understands and agrees to treatment plan. Anticipatory guidance given. Patient agrees to follow-up as directed and is aware of reasons to seek care at the emergency department. Portions of this record may have been created with voice recognition software Differential Diagnosis Differential diagnosis: Likely sinusitis Discharge Plan Discharge Clinical Impression: Acute bacterial sinusitis Patient Disposition: Home, Self-Care Condition: Stable Instructions: Antibiotic Form, Sinusitis (ED) Additional Instructions: Take medications as prescribed. Continue taking [id number] Claritin and Flonase daily. Take ibuprofen or Tylenol every 6-8 hours as needed for pain and fever. Drink at least 64 oz of water a day. Follow-up with your primary care physician if symptoms are not improving. Prescriptions: New methylprednisolone [Medrol (Laron)] 4 mg tablets,dose pack See Rx Instructions PO .COMPLEX Qty: 21 0RF Rx Instructions: orally per package directions amoxicillin-pot clavulanate 875-125 mg tablet 1 tablet PO Q12H 7 Days Qty: 14 0RF Follow-up/Referrals: Robert Lemos MD [Primary Care Provider] - Time of Disposition: 08:32
== END 2024-10-02 08:41 | disposition home or self-care (01) ==
PROVIDERS: Emergency Provider Nurse Practitioner Family; PCP Family Medicine
DX: J01.90 Acute sinusitis, unspecified (principal); Z87.891 Personal history of nicotine dependence; J44.9 Chronic obstructive pulmonary disease, unspecified; Z86.16 Personal history of COVID-19
CPT/HCPCS: 99213; G0463

== ENCOUNTER 2025-02-19 15:39 | Emergency (ER) | payer OTHER, SELFPAY ==
--- NOTE | ~2025-02-19 | XR_ITS ---
EXAMINATION: XR chest 2V Exam Date/Time: 02/19/2025 16:00 CDT HISTORY: cough x 3 days Comparison: 04/02/2024. RESULT: Lines, tubes, and devices: Cholecystectomy clips. Right axillary clips. Lungs and pleura: Clear. Cardiomediastinal silhouette: Stable. Other: No acute osseous or upper abdominal finding. IMPRESSION: No acute cardiopulmonary process. Reviewed, dictated and finalized at location K.
--- NOTE | 2025-02-19 15:46 | ED.URI ---
HPI - URI/Sore Throat General Chief Complaint: Upper Respiratory Infection Stated Complaint: shortness of breath/body aches Time Seen by Provider: 02/19/25 15:50 Source: patient, RN notes reviewed and old records reviewed Mode of arrival: ambulatory Limitations: no limitations History of Present Illness HPI Narrative: 49-year-old female presents to the [facility] with complaints of headache, cough, intermittent shortness of breath, body aches and fever since Wednesday. Has been taking DayQuil and NyQuil. Related Data Home Medications ?Medication ?Instructions ?Recorded ?Confirmed ?Last Taken ?Type No Home Medications 02/19/25 02/19/25 Unknown History Allergies Allergy/AdvReac Type Severity Reaction Status Date / Time nitrofurantoin (From Allergy Severe Swelling Verified 02/19/25 15:49 Macrobid) morphine Allergy Intermediate Rash Verified 02/19/25 15:49 erythromycin base Allergy Mild Flushing Verified 02/19/25 15:49 hydromorphone (From Dilaudid) Allergy Rash Verified 02/19/25 15:49 Review of Systems Review of Systems: All systems reviewed & are unremarkable except as noted in HPI and below Constitutional: Constitutional: Reports as per HPI, Reports body ache(s), Reports fever(s) and Reports headache(s) ENT: Reports system reviewed and no additional complaints, except as documented Cardiovascular: Cardiovascular: Reports no additional cardiovascular complaints, Denies chest pain and Denies dyspnea Respiratory: Respiratory: Reports as per HPI, Denies chest congestion, Reports cough and Reports dyspnea Musculoskeletal: Musculoskeletal: Reports no additional musculoskeletal complaints Integumentary/Breasts: Skin/Breast: Reports system reviewed and no additional complaints, except as docu PMFSH Past Medical History Medical History COVID Rash Headache Hemorrhoid Dysphagia Bug bite Tick bites Nausea Ankle sprain MCL sprain of left knee Left ankle pain Left knee pain Bronchitis URI (upper respiratory infection) Productive cough Fever Strep throat Abdominal pain COVID-19 Suprapubic pain, acute Pelvic pain Heel pain UTI (urinary tract infection) B12 deficiency Preventative health care Nausea Abdominal pain Umbilical pain Incisional hernia Encounter for surgical aftercare following surgery on the skin and subcutaneous tissue Breast mass, left Lung nodule Mass of skin of abdomen Lipoma Family history of osteoporosis 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 Hypoestrogenism Overweight Animal scabies Acute pharyngitis, unspecified Contact dermatitis Weight gain Left ankle sprain Anxiety PUD (peptic ulcer disease) Chronic nausea COPD (chronic obstructive pulmonary disease) Medial meniscus, posterior horn derangement Surgical History Surgical History History of tonsillectomy Hx of lymph node biopsy Ultrasound-guided wire localized excisional right axillary lymph node biopsy 01/07/24 History of abdominal surgery History of surgery cervix removed H/O excision of mass 03/12/21 excisional biopsy left breast mass measuring approximately 2 x 1 cm, right upper quadrant abdominal wall subcutaneous mass measuring approximately 3 x 2 cm, epigastric abdominal wall subcutaneous mass measuring approximately 2 x 1 cm History of knee surgery History of cholecystectomy H/O: hysterectomy Family History Family History Grandparent Diabetes mellitus Hypertension Family history of cardiovascular disease Cerebrovascular accident Family history of neuropathy Mother Hypertension Family history of cardiovascular disease Cerebrovascular accident Uterine cancer Father Diabetes mellitus Heart disease Cerebrovascular accident Hypertension Other Family history of arthritis Family history of seizure disorder Social History Social History Smoking packs per day: 0.25 Smoking cigarettes per day: 5.0 Years smoked: 10 Smoking pack-years: 2.50 Smoking status: Never smoker Tobacco type: cigarettes Second hand tobacco smoke exposure: No Smoking end date: 10/25/10 Additional smoking assessment comments: STATES SOCIAL SMOKER FOR 7 YEARS, 1PK EVERY 2-3 WEEKS, QUIT 2010 Alcohol intake: never Alcohol use details: 4 per year Substance use: never Substance use type: does not use Do You Feel Safe in your Home?: Yes Lack of Transportation: No Lack of Food: Sometimes True Current Housing: I Have Housing Concerned About Future Housing: No Difficulty Paying Gas/Electric Bills: YES Difficulty Paying for Meds: YES Currently Unemployed: No Education: Trade/Vocational Certificate Difficulty w/ Childcare or Family Care: No Living arrangements: with family 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 There is no relevant family history pertinent to the patient complaint. Exam Const: General: cooperative, no acute distress, well developed, alert, tired appearing, uncomfortable and well nourished Nutritional Appearance: well nourished Orientation/consciousness: patient oriented x3 Limitations: no limitations HENMT: Head: normal to inspection Ears: hearing grossly normal bilaterally, external ears normal, TM's normal bilaterally, EAC's normal, mastoids normal and no periauricular adenopathy Face/Nose/Sinus: Normal external nose present, Normal nares present and No nasal discharge present Mouth: Yes Normal oral and palatal mucosa present, Yes lip normal, Yes tongue normal and Yes moist mucous membranes Throat: posterior oropharynx normal, tonsils normal, uvula midline and no uvular edema Eyes: General: appearance normal, both eyes and all related structures Alignment and Position: alignment normal Neck: Neck: normal visual inspection, full ROM, no lymphadenopathy and no meningeal signs Chest: Chest palpation & inspection: normal inspection of the chest Resp: Effort & Inspection: normal respiratory effort and able to speak in complete sentences Auscultation: clear to auscultation bilaterally, no crackles, no rales, no rhonchi, no wheezes and diminished lung sounds bilateral in the lower lung goldberg Cardio: Rate: regular rate Skin: General skin exam: normal color and no rashes or lesions noted Neuro: General: patient oriented x3, gait normal, moves all extremities and no meningeal signs Cognition (Neuro): normal cognition Speech: normal speech Gait exam (Neuro): Normal gait present Extrem: General: normal to inspection, full ROM, capillary refill normal and normal gait Psych: Appearance: grossly normal and well kempt Mental Status: mental status grossly normal Speech and movement: Normal speech and movement present and Clear speech present Affect: normal affect Attitude: cooperative Course Course Level of Care: Express Care Visit Vital Signs Vital signs: Vital Signs Temperature 100.4 F H 02/19/25 15:54 Pulse Rate 116 H 02/19/25 15:54 Respiratory Rate 16 02/19/25 15:54 Blood Pressure 103/70 02/19/25 15:54 Pulse Oximetry 98 02/19/25 15:54 Oxygen Delivery Room Air 02/19/25 15:54 Temperature 100.4 F H 02/19/25 15:54 Pulse Rate 116 H 02/19/25 15:54 Respiratory Rate 16 02/19/25 15:54 Blood Pressure 103/70 02/19/25 15:54 Pulse Oximetry 98 02/19/25 15:54 Oxygen Delivery Room Air 02/19/25 15:54 Reviewed MDM - URI/Sore Throat MDM Narrative Medical decision making narrative: Patient sitting in exam room. Patient appears as if she does not feel well. Low-grade fever. Patient is flu B positive. Flu a and COVID negative, x-ray is negative. Patient appropriate for outpatient treatment with close follow-up Discharge instructions reviewed with patient, as well as provided in writing per nursing staff. The instructions also include specific and strict return/GO TO THE ER as well as f/u information. All questions have been answered, and the patient deny any further questions with discharge and discharge plan. Some parts of this dictation were generated by voice recognition software and may contain typographical and/or grammatical inaccuracies. Differential Diagnosis Differential diagnosis: Likely upper respiratory infection, otitis media, sinusitis, viral infection, bronchitis and influenza Lab Data Labs: Lab Results 02/19/25 Range/Units 15:55 POC Influenza A Ag Negative (Negative) POC Influenza B Ag Positive (Negative) POC SARS CoV-2 Ag Negative (Negative) POC Grp A Strep Screen Negative (Negative) Reviewed Imaging Data Radiologist's impression: EXAMINATION: XR chest 2V Exam Date/Time: 02/19/2025 16:00 CDT HISTORY: cough x 3 days Comparison: 04/02/2024. RESULT: Lines, tubes, and devices: Cholecystectomy clips. Right axillary clips. Lungs and pleura: Clear. Cardiomediastinal silhouette: Stable. Other: No acute osseous or upper abdominal finding. IMPRESSION: No acute cardiopulmonary process. Critical Care Time Critical Care Time Critical Care Time: No Discharge Plan Discharge Clinical Impression: Influenza B Patient Disposition: Home Condition: Stable Instructions: Antibiotic Form, Influenza (ED) Additional Instructions: Your rapid strep swab was negative today at [facility]. A throat culture will be sent to the laboratory for further testing. If the test is positive, you will receive a phone call within 48 hours and an appropriate antibiotic will be initiated at that time. Your rapid COVID test were negative Your rapid flu test was positive for influenza B. Your symptoms are due to a viral illness, which is not treated with antibiotics. Typically viral infections last 7-10 days, can linger for couple of weeks. It is very important to treat your symptoms. Hydration is very important please drink plenty of fluids. this includes water, Gatorade, Pedialyte, ice pops or Jell-O. -Alternate Tylenol and Motrin per package directions for fever or pain. You can alternate every 4 hours -Antihistamine medication such as Zyrtec/Claritin/Eri during the day can help improve symptoms. -doing daily nasal irrigations can help relieve pressure your sinuses. Things like a Neti pot -Use Flonase twice a day for 5 days then daily to help reduce the inflammation and dry up your sinuses. -You can also use Mucinex. Be sure to drink plenty of water with this medication at least 8 ounces with every dose and it is important to drink 8 to 10 glasses of water per day. Water is a natural decongestant -Eat and drink things that are easy to swallow, like tea or soup, or popsicles. -Oral rinses such as: Salt water gargles and/or may use topical anesthetic (eg. Chloraseptic spray) or lozenges to relieve dryness or throat pain). -Frequent hand washing or hand sleeping room cleaner is one of the best ways to prevent spread of infection. -Using a vaporizer or humidifier at night will also help thin secretions and help with coughing up phlegm. -Follow up with primary care provider in 7-10 days if condition is not improving - For new or worsening symptoms go directly to the nearest ER Patient Language: Belgian Prescriptions: No Action No Home Medications Follow-up/Referrals: UNKNOWN,DOCTOR [Primary Care Provider] - Stand Alone Forms: Work/School Release IP Time of Disposition: 16:13
[2025-02-19 15:54] VITALS: BP 103/70; PULSE 116; RESP 16; TEMP 38; O2SAT 98
[2025-02-19 16:12] LABS: EDCOVIDSCREEN Negative (Negative); EDINFLUASCREEN Negative (Negative); EDINFLUBSCREEN Positive (Negative); EDSTREPNEGPOS1 Negative (Negative)
--- OUTSIDE RECORDS SUMMARY | 2025-02-19 17:44 | XMS_ITS | Clinical Summary ---
Author Organization [facility] Address [address] [place] [address] Care Team Providers Care Carrier Washer Name Role Phone Anson Blackwell DO Primary Care Provider Allergies Active Allergy Reactions Criticality Noted Date Comments Erythromycin Ethylsuccinate Nausea and Vomiting,Rash Low 11/09/2023 Hydromorphone Other (See Comments) Medium 11/09/2023 Reaction: Other reaction, , Reaction: OTHER REACTION, Morphine Hives High 06/29/2021 Medications albuterol (PROVENTIL,VENTOL IN) 2.5 mg /3 mL (0.083 %) Solution for Nebulization Take 2.5 mg by inhalation one time only. Active albuterol sulfate HFA 90 mcg/actuation aerosol inhaler Take 2 Puffs by inhalation every 6 hours as needed for Shortness of Breath. Active fluticasone propion-salmetero L (ADVAIR DISKUS,WIXELA INHUB) 250-50 mcg/dose disk inhaler Take 1 Puff by inhalation 2 times daily. Active ondansetron (ZOFRAN) 8 mg Tablet Take 8 mg by mouth every 8 hours as needed for Nausea/Emesis. Active omeprazole (PriLOSEC) 40 mg Capsule, Delayed Release(E.C.) Take 40 mg by mouth daily. Active progesterone micronized (PROMETRIUM) 100 mg Capsule Take 100 mg by mouth daily. Active Active Problems Problem Noted Date Diagnosed Date Iron deficiency anemia 12/01/2023 Lung nodule 12/01/2023 Axillary lymphadenopathy 12/01/2023 Encounters Date Type Department Care Team Description 02/06/2025 External Device Data [facility] ABSTRACTION Provider, Abstract 01/10/2025 External Device Data [facility] ABSTRACTION Provider, Abstract 12/30/2024 External Device Data [facility]STRACTION Provider, Abstract 12/29/2024 External Device Data [facility]STRACTION Provider, Abstract 12/27/2024 External Device Data [facility]STRACTION Provider, Abstract 12/12/2024 External Device Data [facility] ABSTRACTION Provider, Abstract from Last 3 Months Family History Medical History Relation Name Comments No Known Problems Brother 1 Heart Disease Brother 2 Heart Disease Child 1 Heart Disease Child 2 Heart Disease Child 3 Diabetes Father Heart Disease Father Diabetes Mother Heart Disease Mother Relation Name Status Comments Brother 1 Alive Brother 2 Child 1 Alive Child 2 Alive Child 3 Alive Father Alive Mother Alive Sister Social History Tobacco Use Types Packs/Day Years Used Date Smoking Tobacco: Never Smokeless Tobacco: Never Tobacco Cessation:Counseling Given: Not Answered Alcohol Use Standard Drinks/Week Comments Never 0 (1 standard drink = 0.6 oz pur e alcohol) Comments Unknown Sex and Gender Information Value Date Recorded Sex Assigned at Not on file Legal Sex Female 5:43 AM [employer] STE[employer] Gender Identity Not on file Sexual Orientation Not on file Last Filed Vital Signs Vital Sign Reading Time Taken Comments Blood Pressure 137/81 03/02/2024 10:53 AM CDT Pulse 71 03/02/2024 10:53 AM CDT Temperature 36.8 C (98.2 F) 03/02/2024 10:53 AM CDT Respiratory Rate 18 03/02/2024 10:53 AM CDT Oxygen Saturation 96% 03/02/2024 10:53 AM CDT Inhaled Oxygen Concentration - - Weight 85.5 kg (188 lb 9.6 oz) 03/02/2024 10:53 AM CDT Height 162.6 cm (5' 4 ) 11/09/2023 11:26 AM [employer] STE[employer] Body Mass Index 32.37 11/09/2023 11:26 AM [employer]INE STE[employer] Plan of Treatment Health Maintenance Due Date Last Done Comments Pre-Diabetes and Diabetes Screening 1973 HEPATITIS B VACCINES (1 of 3 - 19+ 3-dose series) 1992 HPV/Cotest (21-29) 1994 CERVICAL CANCER SCREENING 2003 HPV/Cotest (30-65) 2003 PAP SMEAR 2003 FIT-DNA Q 3 years 2018 FIT/FOBT Q 1 year 2018 Flex Sig/CT Colonography Q 5 years 2018 ZOSTER VACCINE (1 of 2) 2023 INFLUENZA VACCINE (#1) 2024 08/25/2016, 2012 BREAST CANCER SCREENING 11/25/2024 11/25/2023 COLORECTAL SCREENING 01/08/2031 01/08/2021, 01/08/2021, 12/19/2015, Additional history exists Colorectal Cancer Screening 01/08/2031 DTAP/TDAP/TD VACCINES (2 - T d or Tdap) 06/29/2031 06/29/2021 Procedures Procedure Name Priority Date/Time Associated Diagnosis Comments MAMMO BILAT DIAGNOSTIC Routine 11/25/2023 10:26 AM [employer]INE STEAMFIT[employer] from Last 3 Months or Most Recently Relevant to Health Maintenance Results * MAMMO BILAT DIAGNOSTIC (11/25/2023 10:26 AM MARINE STEAMFIT[employer]) Anatomical Region Laterality Modality Breast Bilateral Mammography Essie Gregorio [employer]GER MAMMO ORDERABLES Final Result from Last 3 Months or Most Recently Relevant to Health Maintenance Insurance Care Teams Carrier Washer Relationship Specialty Start Date End Date Anson Blackwell DO [address] [id number] PCP - General Internal Medicine 11/05/23
--- OUTSIDE RECORDS SUMMARY | 2025-02-19 17:45 | XMS_ITS | Clinical Summary ---
Author Organization [facility] Address [address] [place] [address] Care Team Providers Care Hardware Test Engineer Name Role Phone Anson Angelo DO Primary Care Provider [phone] Allergies Active Allergy Reactions Criticality Noted Date Comments Erythromycin Other (See comments),Nausea only,Vomiting Reaction: Nausea, vomiting, , , , Reaction: NAUSEA, VOMITING, Hydromorphone Other (See comments) Medium Reaction: Other reaction, , Reaction: OTHER REACTION, Medications triamcinolone (KENALOG) 0.5 % cream Apply topically 3 (three) times a day. 30 g 3 7 Active albuterol (PROVENTIL,VENT DANIEL) 2.5 mg /3 mL (0.083 %) nebulizer solution Take 3 mL (2.5 mg total) by nebulization 4 (four) times a day as needed for wheezing or shortness of breath. 125 vial 11 8 Active albuterol HFA (VENTOLIN HFA) 90 mcg/actuation inhaler Inhale 2 puffs every 4 (four) hours as needed for wheezing. 1 Inhaler 2 8 Active ondansetron (ZOFRAN) 8 mg tablet Take by mouth every 8 (eight) hours as needed for nausea or vomiting Active dicyclomine (BENTYL) 10 mg capsule Take 1 capsule (10 mg total) by mouth 3 (three) times a day before meals 90 capsule 1 1 Active ondansetron (ZOFRAN) 4 mg tablet Take 1 tablet (4 mg total) by mouth every 6 (six) hours 12 tablet 1 Active Active Problems Problem Noted Date Diagnosed Date Family history of colon canc er requiring screening colonoscopy 12/18/2020 Overview (12/18/2020): Added automatically from request for surgery [id number] History of colonic polyps 12/18/2020 Overview (12/18/2020): Added automatically from request for surgery [id number] De Quervain's syndrome (tenosynovitis) 7 Left thumb sprain 04/20/2017 Paresthesias in left hand 04/20/2017 Contusion of left wrist 04/08/2017 Anxiety, generalized 12/28/2016 Overview (03/19/2017): Generalized anxiety disorder Cough 12/28/2016 Overview (03/19/2017): Cough Right lower quadrant abdominal pain 03/28/2015 Overview (01/28/2017): Right lower quadrant pain Mass of ovary 07/23/2014 Overview (01/28/2017): Ovarian mass Immunizations Immunization Administration Dates Next Due Influenza, Quadrivalent, Spl it, Preservative Free, Intramuscular 08/25/2016 Influenza, Trivalent, IM (MDV) 10/25/2012,2012 Surgical History Surgery Date Site/Laterality Comments HYSTERECTOMY 10/25/2006 - 10/24/2007 Hysterectomy KNEE ARTHROSCOPY 10/25/1986 - 10/24/1987 Arthroscopy knee VAGINAL HYSTERECTOMY Hysterectomy, vaginal OTHER SURGICAL HISTORY Hysterectomy, total, unilateral removal tube and ovary KNEE SURGERY L knee surgery OTHER SURGICAL HISTORY R knee sugery OTHER SURGICAL HISTORY Knee reconstruction L-1979 R-1986 CHOLECYSTECTOMY Cholecystectomy OTHER SURGICAL HISTORY 10/25/1991 - 10/24/1992 : 7 hr labor OTHER SURGICAL HISTORY 10/25/1995 - 10/24/1996 : OTHER SURGICAL HISTORY 10/25/1996 - 10/24/1997 : 4 hr labor OTHER SURGICAL HISTORY 10/25/2006 - 10/24/2007 LSH and left salpingo-oophorectomy OTHER SURGICAL HISTORY SAB after a BTL: Bilateral salpingectomies. OTHER SURGICAL HISTORY 10/25/2013 - 10/24/2014 Ovarian mass: laparoscopic right oophorectomy OTHER SURGICAL HISTORY lap right oophorectomy OTHER SURGICAL HISTORY open repair on bilateral knees as a youth LAPAROSCOPIC CHOLECYSTECTOMY Cholecystectomy, laparoscopic OTHER SURGICAL HISTORY Pelvic pain: Laparoscopic resection of right pelvic sidewall endometrioma and vaginal trachelectomy COLONOSCOPY 07/26/2017 Medical History Medical History Date Comments Gastric ulcer stomach ulcer Hx Other Medical Headache, migra ine Tension headache Headache, tensi on Asthma Asthma Hx Other Medical Bilateral Knee [id number] Hx Other Medical 06/2014 mass R abdomen; Comments: SARAH 07/23/2014 - Hx Other Medical ; Outc ome: 36W0D week 6lb(s) 12 oz Female Hx Other Medical ; Outc ome: 34W0D week 5lb(s) 5 oz Male Hx Other Medical ; Outc ome: 29W0D week 3lb(s) Female Hx Other Medical SAB after a BTL Hx Other Medical Ovarian mass; C omments: JRB 08/01/2014 - Hx Other Medical UTI at present time; Comments: GDS 03/28/2015 - Hx Other Medical Pelvic pain; Co mments: JT 05/02/2015 -Urinary retention COPD (chronic obstructive pu lmonary disease) ([facility]) Family History Medical History Relation Name Comments Other Brother 2 Cerbral Palsey; Cause of : Cerbral Palsey Other Daughter Cerebral palsy, now 17 in 2013.; Diabetes Father Diabetes mellit us; Heart disease Father Cardiovascular disease; Hypertension Father Hypertension; Migraines Father Migraine; Stroke Father Stroke; Heart disease Mother Cardiovascular disease; Hyperlipidemia Mother Hyperlipidemi a; Hypertension Mother Hypertension; Migraines Mother Migraine; Stroke Mother Stroke; Uterine cancer Mother Cancer, uteri ne; Other Other 1 Family history of cerebral palsy; Arthritis Other 2 Family history of Arthritis; Diabetes Other 3 Family history of Diabetes mellitus; Hypertension Other 4 Family history of Hypertension; Seizures Other 5 Family history of Seizure disorder; Stroke Other 6 Family history of Stroke; Other Other 7 Family history of Bleeding problems; Lung disease Other 8 Family history of Lung problems; Coronary artery disease Other 9 Kathy nary artery disease; Colon cancer Paternal Grandmother Relation Name Status Comments Brother 1 (Age 30) Brother 2 Daughter Father Mother Other 1 Other 2 Other 3 Other 4 Other 5 Other 6 Other 7 Other 8 Other 9 Paternal Grandmother Social History Tobacco Use Types Packs/Day Years Used Date Smoking Tobacco: Former Smokeless Tobacco: Never Alcohol Use Standard Drinks/Week Comments No 0 (1 standard drink = 0.6 oz pur e alcohol) AUDIT-C Answer Date Recorded Q1: How often do you have a drink containing alc ohol? Never 03/31/2023 Average Number of Drinks Not on file 023 Frequency of Binge Drinking Not on file 04/2023 Comments No Sex and Gender Information Value Date Recorded Sex Assigned at Not on file Legal Sex Female 7:44 PM BOWSTRING MAKER Gender Identity Not on file Sexual Orientation Not on file Obstetrics History Last Filed Vital Signs Vital Sign Reading Time Taken Comments Blood Pressure 110/73 03/31/2023 12:45 PM CDT Pulse 58 03/31/2023 12:45 PM CDT Temperature 36.2 C (97.2 F) 03/31/2023 11:06 AM CDT Respiratory Rate 18 03/31/2023 12:45 PM CDT Oxygen Saturation 96% 03/31/2023 12:45 PM CDT Inhaled Oxygen Concentration - - Weight 73.5 kg (162 lb) 03/31/2023 10:59 AM CDT Height 165.1 cm (5' 5 ) 03/31/2023 10:59 AM CDT Body Mass Index 26.96 03/31/2023 10:59 AM CDT Plan of Treatment Health Maintenance Due Date Last Done Comments Breast Cancer Screening-Mammogram 1975 Hepatitis C Screening 1975 Hepatitis B Screening 1991 Depression Screening 06/25/2018 06/25/2017, 05/27/20 17 Regular Well Visit/Exam 18-64 01/27/2019 01/27/2018 Zoster Vaccine (1 of 2) 2023 Influenza Vaccine (Season Ended) 2025 08/25/2016, 07/22/2015, 10/25/2012, Additional history exists Colon Cancer Screening-Colonoscopy 01/08/2031 01/08/2021, 07/26/2017, 07/26/2017, Additional history exists DTaP/Tdap/Td Vaccine (2 - Td or Tdap) 06/29/2031 06/29/2021 Pneumococcal vaccine <65 Aged Out No longer eligible based on patient's age to complete this topic Procedures Procedure Name Priority Date/Time Associated Diagnosis Comments COLONOSCOPY 01/08/2021 10:05 AM CDT from Last 3 Months or Most Recently Relevant to Health Maintenance Results * COLONOSCOPY (01/08/2021 10:05 AM CDT) Anatomical Region Laterality Modality Other Narrative Procedure Note Uriel Caruso MD - 01/08/2021 10:[address] [facility] Patient Name: Joanne Garcia Procedure Date: 01/08/2021 10:05 AM Date of : 1975 Admit Type: Outpatient Age: 45 Gender: Female Attending MD: Uriel Caruso M.D. Room: [facility] ENDOSCOPY ROOM 1 Note Status: Finalized Patient Profile: This is a 45 year old female. Her uncle and a grandparent had colon cancer. Patient hascomplaints of chronic diarrhea for years. Also complains of recurrent episodes of bleeding per rectum of bright red blood Procedure: Colonoscopy Indications: Colon cancer screening in patient at increasedrisk: Family history of colorectal cancer in multiple 2nd degree relatives, Last colonoscopy: July 2017 Referring MD: Anson Angelo Providers: Uriel Caruso M.D. Impression: - The entire examined colon is normal. Biopsied. - Internal hemorrhoids. Recommendation: - Await pathology results. - Repeat colonoscopy in 5 years for screeningpurposes. - Continue present medications. - Follow up in GI office for further evaluation of chronic diarrhea. Medicines: Monitored Anesthesia Care Complications: No immediate complications. Estimated Blood Loss: Estimated blood loss: none. Procedure: Pre-Anesthesia Assessment: - Prior to the procedure, a History and Physicalwas performed, and patient medications and allergieswere reviewed. The patient's tolerance of previous anesthesia was also reviewed. The risks andbenefits of the procedure and the sedation options and risks were discussed with the patient. All questions were answered, and informed consent was obtained. Prior Anticoagulants: The patient has taken no previous anticoagulant or antiplatelet agents. ASA Grade Assessment: II - A patient with mild systemicdisease. After reviewing the risks and benefits, the patient was deemed in satisfactory condition to undergo the procedure. The benefits, risks and alternatives of theprocedure and sedation were discussed and informed consentwas obtained. All questions were answered. Please referto the signed informed consent document in the medical record. The scope was passed under direct vision.The Pediatric Colonoscope PCF-H190L [id number] was introduced through the anus and advanced to the the cecum, identified by appendiceal orifice andileocecal valve. The bowel preparation used was Miralax via split dose instruction. The bowel preparation usedwas bisacodyl tablets via split dose instruction. Bowel prep was administered using a split dose. Thequality of the bowel preparation was excellent. Findings: The perianal and digital rectal examinations were normal. The ileum appeared normal. The cecum appeared normal. The colon (entire examined portion) appeared normal. Biopsies for histology were taken with a cold forceps for evaluation ofmicroscopic colitis. Otherwise no inflammatory changes noted. No polyps and nomass lesions noted. Internal hemorrhoids were found during retroflexion. The hemorrhoids were medium-sized. Electronically signed by Uriel Caruso M.D. Uriel Caruso M.D. 01/08/2021 10:47:49 AM Number of Addenda: 0 Note Initiated On: 01/08/2021 10:05 AM Procedure Code(s): --- Professional --- 86831, Colonoscopy, flexible; with biopsy, single or multiple Diagnosis Code(s): --- Professional --- Z80.0, Family history of malignant neoplasm of digestive organs K64.8, Other hemorrhoids CPT copyright 2019 [employer]. All rights reserved. The codes documented in this report are preliminary and upon health information coder reviewmay be revised to meet current compliance requirements. Recognized by the [employer] for promoting quality in endoscopy Uriel Caruso MD ENDOSCOPY PROCEDURES Final Result from Last 3 Months or Most Recently Relevant to Health Maintenance Insurance COMMERCIAL GENERIC [facility] OPEN ACCESS CIG[employer] OPEN ACCESS COMMERCIAL GENERIC [facility] HMO Advance Directives For more information, please contact: [phone] * Full Code (Latest Code Status on File) Date Activated Date Inactivated Comments 01/08/2021 9:40 AM 01/08/2021 3:51 PM * Full Code Date Activated Date Inactivated Comments 01/08/2021 9:40 AM 01/08/2021 9:40 AM Care Teams Hardware Test Engineer Relationship Specialty Start Date End Date Anson Angelo DO PCP - General 04/27/20
--- OUTSIDE RECORDS SUMMARY | 2025-02-19 17:45 | XMS_ITS ---
Care Plan - [facility] Created on: February 19, 2025 GLORY GARCIA : 1975 Sex: Female Author Organization [facility] Address [address] [place] [address] Phone Care Team Providers Care Alignment Technician Name Role Phone JAMMIE DAMON MD Primary Care Provider
--- OUTSIDE RECORDS SUMMARY | 2025-02-19 17:45 | XMS_ITS | Clinical Summary ---
Author Organization [facility] Address [address] [place] [address] Phone Care Team Providers Care Field Merchandiser Name Role Phone Provider, None Primary Care Provider Unavailabl e Allergies Active Allergy Reactions Criticality Noted Date Comments Erythromycin Rash 06/29/2021 Morphine Hives 06/29/2021 Medications cyclobenzaprine (FLEXERIL) 10 MG Tablet nightly as needed. Active Omeprazole (PRILOSEC PO) Active Albuterol Sulfate (PROAIR HFA IN) Active Advair HFA 230-21 MCG/ACT Aerosol 1 Active Phentermine HCl 37.5 MG Tablet TAKE 1 TABLET BY MOUTH DAILY. 30 MINUTES BEFORE OR 1-2 HOURS AFTER BREAKFAST 1 Active Progesterone (PROMETRIUM) 100 MG Capsule 1 Active topiramate (TOPAMAX) 25 MG Tablet 1 Active Active Problems Problem Noted Date Diagnosed Date Anxiety Migraine headache Immunizations Immunization Administration Dates Next Due Influenza Vaccine,unspecified Formulation 2009 TDAP Vaccine 06/29/2021 Tetanus Toxoid, Unspecified Formulation 03/25/20 11 Social History Tobacco Use Types Packs/Day Years Used Date Smoking Tobacco: Former Smokeless Tobacco: Never Alcohol Use Standard Drinks/Week Comments Never 0 (1 standard drink = 0.6 oz pur e alcohol) Sexually Active Control Partners Comments Not Currently Comments Unknown Sex and Gender Information Value Date Recorded Sex Assigned at Not on file Legal Sex Female 12:28 AM CDT Gender Identity Not on file Sexual Orientation Not on file Last Filed Vital Signs Vital Sign Reading Time Taken Comments Blood Pressure 138/90 09/28/2021 8:16 AM P D DRIVER Pulse 80 09/28/2021 8:16 AM P D DRIVER Temperature 37.8 C (100 F) 09/28/2021 8:16 AM P D DRIVER Respiratory Rate 15 09/28/2021 8:16 AM P D DRIVER Oxygen Saturation 97% 09/28/2021 8:16 AM P D DRIVER Inhaled Oxygen Concentration - - Weight 67.1 kg (148 lb) 06/29/2021 3:49 PM CDT Height 165.1 cm (5' 5 ) 06/29/2021 3:49 PM CDT Body Mass Index 24.63 06/29/2021 3:49 PM CDT Plan of Treatment Health Maintenance Due Date Last Done Comments Hepatitis C Virus (HCV) Screening 1975 Mammogram 1975 Hepatitis B Immunization (1 of 3 - 19+ 3-dose series) 1992 Colonoscopy 2018 Colorectal Cancer Screening 2018 Cologuard 2023 Immunochemical Fecal Occult Blood 2023 Pneumococcal Immunization (5 0+ years) (1 of 1 - PCV) 2023 Zoster Immunization (1 of 2) 2023 Influenza Immunization (#1) 06/25/20242 05/2015, 10/25/2009 SARS-COV-2 Immunization ( - season) 2024 Td Immunization Every 10 Yea rs (Adults With 1 Tdap) 06/29/2031 06/29/2021 Respiratory Syncytial Virus (RSV) Immunization (Adult) (1 - 1-dose 75+ series) 2048 DTaP/Tdap/Td Immunization Discontinued 06/29/2021 Meningococcal Immunization (ACWY) Aged Out No longer eligible based on patient's age to complete this topic Rotavirus Immunization Aged Out No lo nger eligible based on patient's age to complete this topic Insurance [facility] Care Teams Field Merchandiser Relationship Specialty Start Date End Date Provider, None [place] PCP - General 06/29/21
--- OUTSIDE RECORDS SUMMARY | 2025-02-19 17:45 | XMS_ITS | Clinical Summary ---
Author Organization [facility] Address [address] [place] [address] Phone Care Team Providers Care School Cafeteria Cook Head Name Role Phone JAMMIE DAMON MD Primary Care Provider Reason for Visit and Chief Complaint GENERAL OFFICE VISIT Problems Includes: Problems addressed during this encounter and other active Problems All Visits Onset Date Resolved Date Provider Condition S tatus DEPRESSIVE DISORDER NEC 02/27/2009 MELANIE TY MARISOL RECINOS Active Last Documented On 9 7:07PM ; [facility] Plan of Treatment No Plan of Treatment Recorded Assessments Includes: Assessments from this encounter No Assessments Recorded Medical Equipment - Implanted Devices Includes: Current Devices No Medical Equipment Recorded Medications Administered Includes: Administered Medications from this encounter No Administered Medications Recorded Results Includes: Results discussed during this encounter No Results Recorded For Specified Dates History of Present Illness Includes: History of Present Illness from this encounter No History of Present Illness Recorded Social History No Social History Recorded - Smoking Status Unknown Medical History Includes: Medical History addressed during this encounter No Medical History Recorded Family History Includes: Family History addressed during this encounter No Family History Recorded Review of Systems Includes: Review of Systems from this encounter No Review of Systems Recorded Mental Status Includes: Mental Status from this encounter No Mental Status Recorded Functional Status Includes: Functional Status from this encounter No Functional Status Recorded Physical Exam Includes: Physical Exam from this encounter No Physical Exam Recorded Allergies Includes: Active Allergies Substance Type Reaction Onset Date Resolved Date Statu s Macrolides and Ketolides Allergy 03/05/2009 Active Last Documented On 9 3:35PM ; [facility] Clinical Notes Includes: Clinical Notes from this encounter No Clinical Notes Recorded
--- OUTSIDE RECORDS SUMMARY | 2025-02-19 17:45 | XMS_ITS | Clinical Summary ---
Author Organization [facility] Address [address] [place] [address] Phone Care Team Providers Care Topstitcher Zigzag Name Role Phone JAMMIE DAMON MD Primary Care Provider Reason for Visit and Chief Complaint CHART UPDATE Problems Includes: Problems addressed during this encounter and other active Problems Current Visit Onset Date Resolved Date Provider Laura bansal Status DEPRESSIVE DISORDER NEC 02/27/2009 MELANIE TY MARISOL RECINOS Active Last Documented On 9 7:07PM ; [facility] Plan of Treatment No Plan of Treatment [...] History of Present Illness from this encounter HPI GLORY GARCIA is a 33 year old female. - No previous history of cardiovascular symptoms - No previous history of easy bleeding - No previous history of complaint of recurrent infections Social History Description Last Updated A previous history of smoking 02/27/2009 Last Documented On 9 3:35PM ; [facility] Abnormal diet NEED TO 02/27/2009 Last Documented On 9 3:35PM ; [facility] Alcohol SOMETIMES 02/27/2009 Last Documented On 9 3:35PM ; [facility] Currently 02/27/2009 Last Documented On 9 3:35PM ; [facility] Exercise frequency SHOULD 02/27/2009 Last Documented On 9 3:35PM ; [facility] Smoking Status Unknown Medical History Includes: Medical History addressed during this encounter Description Last Updated No history of arthritis 02/27/2009 Last Documented On 9 3:35PM ; [facility] No history of cancer 02/27/2009 Last Documented On 9 3:35PM ; [facility] No history of convulsive disorder 2008 Last Documented On 9 3:35PM ; [facility] No history of diabetes mellitus 02/28/20 09 Last Documented On 9 3:35PM ; [facility] No history of hypertension 02/27/2009 Last Documented On 9 3:35PM ; [facility] No history of stroke syndrome 02/27/2009 Last Documented On 9 3:35PM ; [facility] No history of venereal disease 9 Last Documented On 9 3:35PM ; [facility] Family History Includes: Family History addressed during this encounter Description Last Updated Heart disease 02/27/2009 Last Documented On 9 3:35PM ; [facility] Review of Systems Includes: Review of Systems [...] Active Last Documented On 9 3:35PM ; [facility] Encounters Encounter Provider Location Date Check-In Time Check-Out Time Diagnosis CHART UPDATE [facility] 02/28/20 09 7:00PM 11:59PM Clinical Notes Includes: Clinical Notes from this encounter No Clinical Notes Recorded
--- OUTSIDE RECORDS SUMMARY | 2025-02-19 17:45 | XMS_ITS ---
Author Organization [facility] Address [address] [place] [address] Phone Care Team Providers Care Clothing Busheler Name Role Phone JAMMIE DAMON MD Primary Care Provider Problems Includes: Active, inactive, and resolved Problems All Visits Onset Date Resolved Date Provider Condition S tatus DEPRESSIVE DISORDER NEC 02/27/2009 MELANIE TY MARISOL RECINOS Active Last Documented On 9 7:07PM ; [facility] Plan of Treatment No Plan of Treatment Recorded Assessments Includes: Assessments for all patient encounters No Assessments Recorded Medical Equipment - Implanted Devices Includes: Current and historical Devices No Medical Equipment Recorded Medications Administered Includes: Administered Medications in patient's chart No Administered Medications Recorded Results Includes: Results from 02/20/2024 through 02/19/2025 No Results Recorded For Specified Dates History of Present Illness History of Present Illness not supported for this document type No History of Present Illness Recorded Social History Description Last Updated A previous history of smoking 02/27/2009 Last Documented On 9 3:35PM ; [facility] Abnormal diet NEED TO 02/27/2009 Last Documented On 9 3:35PM ; [facility] Alcohol SOMETIMES 02/27/2009 Last Documented On 9 3:35PM ; [facility] Currently 02/27/2009 Last Documented On 9 3:35PM ; [facility] Exercise frequency SHOULD 02/27/2009 Last Documented On 9 3:35PM ; [facility] Smoking Status Unknown Medical History Includes: Medical History in patient's chart Description Last Updated No history of arthritis 02/27/2009 Last Documented On 9 3:35PM ; [facility] No history of cancer 02/27/2009 Last Documented On 9 3:35PM ; [facility] No history of convulsive disorder 2008 Last Documented On 9 3:35PM ; [facility] No history of diabetes mellitus 02/28/20 Last Documented On 9 3:35PM ; [facility] No history of hypertension 02/27/2009 Last Documented On 9 3:35PM ; [facility] No history of stroke syndrome 02/27/2009 Last Documented On 9 3:35PM ; [facility] No history of venereal disease 9 Last Documented On 9 3:35PM ; [facility] Family History Includes: Family History in patient's chart Description Last Updated Heart disease 02/27/2009 Last Documented On 9 3:35PM ; [facility] Review of Systems Review of Systems not supported for this document type No Review of Systems Recorded Mental Status No Mental Status Recorded Functional Status No Functional Status Recorded Physical Exam Physical Exam not supported for this document type No Physical Exam Recorded Allergies Includes: Active, inactive, and resolved Allergies Substance Type Reaction Onset Date Resolved Date Statu s Macrolides and Ketolides Allergy 03/05/2009 Active Last Documented On 9 3:35PM ; [facility] Clinical Notes Includes: Signed Clinical Notes starting from 11/13/2022 No Clinical Notes Recorded
--- OUTSIDE RECORDS SUMMARY | 2025-02-19 17:45 | XMS_ITS | Clinical Summary ---
Author Organization [facility] Address [address] [place] [address] Care Team Providers Care Adolescent Counselor Name Role Phone Unavailable Primary Care Provider Unavailabl e Social History Tobacco Use Types Packs/Day Years Used Date Smoking Tobacco: Never Assessed Comments Unknown Sex and Gender Information Value Date Recorded Sex Assigned at Not on file Legal Sex Female 4:08 PM CDT Gender Identity Not on file Sexual Orientation Not on file Plan of Treatment Health Maintenance Due Date Last Done Comments Cervical Cancer Screening Pa p Smear (Age 30 to 64) Every 3 Years 1973 Colorectal Cancer Screening Colonoscopy (10 Years) 1973 Annual Physical 1976 Hepatitis C 1991 DTaP, Tdap and Td Vaccines ( 1 - Tdap) 1992 Hepatitis B Vaccines (1 of 3 - 19+ 3-dose series) 1992 Cervical Cancer Screening Pa p with HPV Testing (Age 30 to 64) Every 5 Years 2003 Cervical Cancer Screening with HPV 2003 Mammogram Screening 2013 Pneumococcal Vaccine: 50+ Ye ars (1 of 1 - PCV) 2023 Zoster Vaccines (1 of 2) 2023 COVID-19 Vaccine (2023-2 5 season) 2024 Meningococcal B Vaccine Aged Out No l onger eligible based on patient's age to complete this topic Meningococcal Vaccine Aged Out No gerry yudelka eligible based on patient's age to complete this topic RSV Immunizations Under 20 Months Aged Out No longer eligible based on patient's age to complete this topic
--- OUTSIDE RECORDS SUMMARY | 2025-02-19 17:45 | XMS_ITS | Clinical Summary ---
Author Organization [facility] Address [address] [place] [address] Phone Care Team Providers Care Food Assembler Name Role Phone JAMMIE DAMON MD Primary Care Provider Reason for Visit and Chief Complaint GENERAL OFFICE VISIT Problems Includes: Problems addressed during this encounter and other active Problems All Visits Onset Date Resolved Date Provider Condition S tatus DEPRESSIVE DISORDER NEC 02/27/2009 MELANIE TY MARISOL RECINOS Active Last Documented On 9 7:07PM ; [facility] Plan of Treatment No Plan of [...] Active Last Documented On 9 3:35PM ; [facility] Encounters Encounter Provider Location Date Check-In Time Check- Out Time Diagnosis GENERAL OFFICE VISIT BERTRAND OSHEA M.D. [facility] TRY 9 10:35AM 12:10PM Clinical Notes Includes: Clinical Notes from this encounter No Clinical Notes Recorded
--- OUTSIDE RECORDS SUMMARY | 2025-02-19 17:45 | XMS_ITS | Referral Summary ---
Author Organization [facility] Address [address] [place] [address] Care Team Providers Care Tire Retreader Name Role Phone Anson Angelo DO Primary Care Provider [phone] Allergies Active Allergy Reactions Criticality Noted Date [...] (12/18/2020): Added automatically from request for surgery [id number] History of colonic polyps 12/18/2020 Overview (12/18/2020): Added automatically from request for surgery [id number] De Quervain's syndrome (tenosynovitis) 7 Left thumb [...] Intramuscular 08/25/2016 Influenza, Trivalent, IM (MDV) 10/25/2012,2012 Social History Tobacco Use Types Packs/Day Years [...] on file 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 Gender Identity Not on file Sexual Orientation [...] 03/31/2023 10:59 AM CDT Plan of Treatment Not on file Procedures Procedure Name Priority Date/Time Associated Diagnosis Comments COLONOSCOPY 01/08/2021 10:05 AM CDT from Last 3 Months or Most Recently Relevant to Health Maintenance Results * COLONOSCOPY (01/08/2021 10:05 AM CDT) Anatomical Region Laterality Modality Other Narrative Procedure Note Uriel Caruso MD - 01/08/2021 10:05 AM CDT [facility] Patient Name: Joanne Garcia Procedure Date: 01/08/2021 10:05 AM Date of : 1975 Admit Type: Outpatient Age: 45 Gender: Female Attending MD: Uriel Caruso M.D. Room: [facility] ENDOSCOPY ROOM 1 Note Status: Finalized Patient Profile: This is a 45 year old female. Her uncle and a grandparent had colon cancer. Patient hascomplaints of chronic diarrhea for years. Also complains of recurrent episodes of bleeding per rectum of bright red blood Procedure: Colonoscopy Indications: Colon cancer screening in patient at [facility]: Family history of colorectal cancer in multiple [...] passed under direct vision.The Pediatric Colonoscope PCF-H190L [id number] was introduced through the anus and advanced [...] 10:05 AM Procedure Code(s): --- Professional --- 34480, Colonoscopy, flexible; with biopsy, single or multiple Diagnosis Code(s): --- Professional --- Z80.0, Family history of malignant neoplasm of digestive organs K64.8, Other hemorrhoids CPT copyright 2019 [employer]. All rights reserved. The codes documented in this report are preliminary and upon operational meteorologist reviewmay be revised to meet current compliance requirements. Recognized by the [employer] for promoting quality in endoscopy Uriel Caruso MD ENDOSCOPY PROCEDURES Final Result from Last 3 Months or Most Recently Relevant to Health Maintenance Insurance COMMERCIAL GENERIC C[employer] OPEN ACCESS [employer] OPEN ACCESS COMMERCIAL GENERIC T [facility] HMO Advance Directives For more information, please contact: [phone] * Full Code (Latest Code Status on File) Date Activated Date Inactivated Comments 01/08/2021 9:40 AM 01/08/2021 3:51 PM * Full Code Date Activated Date Inactivated Comments 01/08/2021 9:40 AM 01/08/2021 9:40 AM Care Teams Tire Retreader Relationship Specialty Start Date End Date Anson Angelo DO PCP - General 04/27/20
--- OUTSIDE RECORDS SUMMARY | 2025-02-19 17:45 | XMS_ITS | Encounter Summary ---
Author Organization [facility] Address 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 Gender Identity Not on file Sexual Orientation Not on file documented as of this encounter Plan of Treatment Not on file documented as of this encounter Procedures Procedure Name Priority Date/Time Associated Diagnosis Comments MRI CERVICAL WO CONTRAST Routine 01/28/2009 11:48 AM CDT documented in this encounter Results * MRI CERVICAL WO CONTRAST (01/28/2009 11:48 AM CDT) Anatomical Region Laterality Modality Spine Other 01/28/2009 11:4 8 AM CDT Narrative 01/29/2009 8:54 AM CDT [address] [address] Admit Date: 01/28/2009 GLORY GARCIA Sex: F Admit Prov: DOUG MARSHALL Date: 1975 Primary Care Prov: PCP, UNKNOWN CMRN: [id number] Room: [facility] SSN: [id number] IMAGING SERVICES Ordering Prov: N/A Accession Number: [id number] Interpretation MRI CERVICAL SPINE WITHOUT CONTRAST 01/28/2009 Indication: Neck and shoulder pain. Technique: Multiplanar and multisequence MR images were acquired using standard protocol. Findings: The vertebral alignment is intact. Vertebral heights are maintained. Bone marrow signal intensity is normal. Minimal desiccation is present at C5-C6 and C6-C7. Craniocervical junction is normal. Spinal cord has normal size and signal. C2-3: Disc configuration is normal. There is no stenosis. C3-C4: Disc configuration is normal. There is no stenosis. C4-C5: Very mild left uncovertebral joint arthropathy is present causing mild left foraminal narrowing. Mild left facet arthropathy is also present. Canal is not stenotic. C5-C6: A right paracentral small focal disc protrusion is present indenting the thecal sac without stenosis. Multilevel facet arthropathy is also present. The left neural foramen may be minimally narrowed. C6-C7: Mild disc bulging bridging is greater towards the left. This does not cause significant canal stenosis. The left neural foramen may be minimally narrowed. C7-T1: Disc configuration is normal and there is no stenosis. Impression: 1. Mild disc protrusion at C5-C6 and disc bulging at C6-C7. 2. Mild degenerative uncovertebral and facet joint arthropathy greater on the left. . Dictated by: KAEL TRUJILLO 01/28/2009 13:18 Electronically signed by: KAEL TRUJILLO 01/29/2009 08:52 Transcribed: 01/28/2009 16:11 AMK Procedure Note Keal Trujillo - 01/29/2009 [facility] [place] [address], [place] [address] Admit Date: 01/28/2009 GLORY GARCIA Sex: F Admit Prov: DOUG MARSHALL Date: 1975 Primary Care Prov: PCP, UNKNOWN CMRN: [id number] Room: [facility] SSN: [id number] IMAGING SERVICES Ordering Prov: N/A Interpretation MRI CERVICAL SPINE WITHOUT CONTRAST 01/28/2009 Indication: Neck and shoulder pain. Technique: Multiplanar and multisequence MR images were acquiredusing standard protocol. Findings: The vertebral alignment is intact. Vertebral heights are maintained.Bone marrow signal intensity is normal. Minimal desiccation is present atC5-C6 and C6-C7. Craniocervical junction is normal. Spinal cord has normalsize and signal. C2-3: Disc configuration is normal. There is no stenosis. C3-C4: Disc configuration is normal. There is no stenosis. C4-C5: Very mild left uncovertebral joint arthropathy is presentcausing mild left foraminal narrowing. Mild left facet arthropathy is alsopresent. Canal is not stenotic. C5-C6: A right paracentral small focal disc protrusion is presentindenting the thecal sac without stenosis. Multilevel facet arthropathy isalso present. The left neural foramen may be minimally narrowed. C6-C7: Mild disc bulging bridging is greater towards the left. Thisdoes not cause significant canal stenosis. The left neural foramen maybe minimally narrowed. C7-T1: Disc configuration is normal and there is no stenosis. Impression: 1. Mild disc protrusion at C5-C6 and disc bulging at C6-C7. 2. Mild degenerative uncovertebral and facet joint arthropathygreater on the left. . Dictated by: KAEL TRUJILLO 01/28/2009 13:18 Electronically signed by: KAEL TRUJILLO 01/29/2009 08:52 Transcribed: 01/28/2009 16:11 AMK us Doug Marshall MD MR ORDERABLES Final Result documented in this encounter Visit Diagnoses Diagnosis Other congenital anomaly of spine documented in this encounter Care Teams Intern Relationship Specialty Start Date End Date Anson Blackwell DO [address] [address] PCP - General Internal Medicine 11/05/23 documented as of this encounter
--- OUTSIDE RECORDS SUMMARY | 2025-02-19 17:45 | XMS_ITS | Clinical Summary ---
Author Organization [facility] Address [address] [place] [address] Phone Care Team Providers Care Char Belt Operator Name Role Phone JAMMIE DAMON MD Primary Care Provider Reason for Visit and Chief Complaint CHART UPDATE Problems Includes: Problems addressed during this encounter and other active Problems All Visits Onset Date Resolved Date Provider Condition S tatus DEPRESSIVE DISORDER NEC 02/27/2009 MELANIE TY MARISOL RECINOS Active Last Documented On 9 7:07PM ; [facility] Plan of Treatment No Plan of Treatment [...] of smoking 02/27/2009 Last Documented On 9 12:17PM ; [facility] Abnormal diet NEED TO 02/27/2009 Last Documented On 9 12:17PM ; [facility] Alcohol SOMETIMES 02/27/2009 Last Documented On 9 12:17PM ; [facility] Currently 02/27/2009 Last Documented On 9 12:17PM ; [facility] Exercise frequency SHOULD 02/27/2009 Last Documented On 9 12:17PM ; [facility] Smoking Status Unknown Medical History Includes: Medical History addressed during this encounter Description Last Updated No history of arthritis 02/27/2009 Last Documented On 9 12:17PM ; [facility] No history of cancer 02/27/2009 Last Documented On 9 12:17PM ; [facility] No history of convulsive disorder 2008 Last Documented On 9 12:17PM ; [facility] No history of diabetes mellitus 02/28/20 Last Documented On 9 12:17PM ; [facility] No history of hypertension 02/27/2009 Last Documented On 9 12:17PM ; [facility] No history of stroke syndrome 02/27/2009 Last Documented On 9 12:17PM ; [facility] No history of venereal disease 9 Last Documented On 9 12:17PM ; [facility] Family History Includes: Family History addressed during this encounter Description Last Updated Heart disease 02/27/2009 Last Documented On 9 12:17PM ; [facility] Review of Systems Includes: Review of Systems [...] Active Last Documented On 9 3:35PM ; [facility] Encounters Encounter Provider Location Date Check-In Time Check-Out Time Diagnosis CHART UPDATE [facility] 03/10/20 09 12:15PM 11:59PM Clinical Notes Includes: Clinical Notes from this encounter No Clinical Notes Recorded
--- OUTSIDE RECORDS SUMMARY | 2025-02-19 17:45 | XMS_ITS | Clinical Summary ---
Author Organization [facility] Address [address] [place] [address] Phone Care Team Providers Care Supervisor Park Workers Name Role Phone JAMMIE DAMON MD Primary Care Provider Reason for Visit and Chief Complaint * PHONE CALL Problems Includes: Problems addressed during this encounter and other active Problems All Visits Onset Date Resolved Date Provider Condition S tatus DEPRESSIVE DISORDER NEC 02/27/2009 MELANIE TY MARISOL RECINOS Active Last Documented On 9 7:07PM ; [facility] Plan of Treatment No Plan of Treatment [...] Active Last Documented On 9 3:35PM ; [facility] Encounters Encounter Provider Location Date Check-In Time Check-Out Time Diagnosis * PHONE CALL AMY Oneill [facility] ORTHO-OP 4 3:47PM 11:59PM Clinical Notes Includes: Clinical Notes from this encounter No Clinical Notes Recorded
--- OUTSIDE RECORDS SUMMARY | 2025-02-19 17:45 | XMS_ITS | Clinical Summary ---
Author Organization [facility] Address [address] [place] [address] Care Team Providers Care Lehr Loader Name Role Phone Unavailable Primary Care Provider Unavailabl e Source Comments [facility],non-owned Affiliates and Associated Physician Practices is amultiple site organization consisting of ambulatory clinics and hospital sitesin [place], [place], [place] and [place]. This disclosure is being madepursuant to the Care Everywhere program and may not contain all information available regarding this patient. 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 Gender Identity Not on file Sexual Orientation Not on file Plan of Treatment Health Maintenance Due Date Last Done Comments COLOGUARD (AGES 45-75) - COL ON CA SCREENING 1973 COLON MONITORING 1973 COLONOSCOPY - COLON CA SCREENING 1973 CT COLONOGRAPHY - COLON CA SCREENING 1973 Colorectal Cancer Screening 1973 FIT - COLON CA SCREENING 1973 FLEX SIG - COLON CA SCREENING 1973 LIPID TESTING 1973 MAMMOGRAM 1973 PAP SMEAR 1973 HIV SCREENING 1988 HEPATITIS C SCREENING 05/06/1991 DTAP/TDAP/TD VACCINES (1 - Tdap) 1992 HEPATITIS B VACCINE (1 of 3 - 19+ 3-dose series) 1992 PNEUMOCOCCAL VACCINE 50+ (1 of 1 - PCV) 2023 ZOSTER VACCINE (1 of 2) 2023 COVID-19 VACCINE (1 - 2023-2 5 season) 2024 DEPRESSION SCREENING 10/25/2024 INFLUENZA VACCINE (Season Ended) 2025 HIB VACCINE Aged Out No longer eligi ble based on patient's age to complete this topic HPV VACCINE Aged Out No longer eligi ble based on patient's age to complete this topic MENINGOCOCCAL (Group B) VACC INE SHARED DECISION-MAKING Aged Out No longer eligibl e based on patient's age to complete this topic MENINGOCOCCAL GROUPS A/C/Y/W VACCINE Aged Out No longer eligible b ased on patient's age to complete this topic Insurance [facility] [employer] SELF PAY NO INSURANCE Member Subscriber Plan / Payer (Ef fective for All Dates) Name:Glory Garcia Member ID:Not on file Relation to Subscriber:Not on file Name:GLORY GARCIA Subscriber ID:Not on file Address: [address] [address] Payer ID:Not on file Group ID:Not on file Type:Self Pay Address: [place], [place] SELF PAY NO INSURANCE Member Subscriber Plan / Payer (Ef fective for All Dates) Name:Glory Garcia Member ID:Not on file Relation to Subscriber:Not on file Name:GLORY GARCIA Subscriber ID:Not on file Address: [address] [address] Payer ID:Not on file Group ID:Not on file Type:Self Pay Address: [place], [place] SELF PAY NO INSURANCE Member Subscriber Plan / Payer (Ef fective for All Dates) Name:Glory Garcia Member ID:Not on file Relation to Subscriber:Not on file Name:GLORY GARCIA Subscriber ID:Not on file Address: [address] [address] Payer ID:Not on file Group ID:Not on file Type:Self Pay Address: [place], [place] * Guarantor: CYNDI GARCIALY Account Type Relation to Patient Date of Phone Billing Address Personal/Family [address] CARE SELF PAY NO INSURANCE Member Subscriber Plan / Payer (Ef fective for All Dates) Name:Radha, Glory Soares Member ID:Not on file Relation to Subscriber:Not on file Name:GLORY GARCIA Subscriber ID:Not on file Address: [address] [address] Payer ID:Not on file Group ID:Not on file Type:Self Pay Address: [place], [place] * Guarantor: GLORY GARCIA Account Type Relation to Patient Date of Phone Billing Address Personal/Family [address] HEALTH CARE SELF PAY NO INSURANCE Member Subscriber Plan / Payer (Ef fective for All Dates) Name:Glory Garcia Member ID:Not on file Relation to Subscriber:Not on file Name:RADHAGLORY Subscriber ID:Not on file Address: [address] [place] [place] [address] Payer ID:Not on file Group ID:Not on file Type:Self Pay Address: [place], [place] * Guarantor: CYNDI GARCIALY Account Type Relation to Patient Date of Phone Billing Address Personal/Family [address] CARE SELF PAY NO INSURANCE Member Subscriber Plan / Payer (Ef fective for All Dates) Name:Radha, Glory S Member ID:Not on file Relation to Subscriber:Not on file Name:RADHAGLORY Subscriber ID:Not on file Address: [address] [address] Payer ID:Not on file Group ID:Not on file Type:Self Pay Address: [place], [place]
--- OUTSIDE RECORDS SUMMARY | 2025-02-19 17:47 | XMS_ITS | Clinical Summary ---
Author Organization [facility] Address [address] [place] [address] Phone Care Team Providers Care Mobile Application Architect Name Role Phone JAMMIE DAMON MD Primary Care Provider Reason for Visit and Chief Complaint GENERAL OFFICE VISIT Problems Includes: Problems addressed during this encounter and other active Problems All Visits Onset Date Resolved Date Provider Condition S tatus DEPRESSIVE DISORDER NEC 02/27/2009 MELANIE TY MARISOL RECINOS Active Last Documented On 9 7:07PM ; [facility] Plan of Treatment No Plan [...] Active Last Documented On 9 3:35PM ; [facility] Encounters Encounter Provider Location Date Check-In Time Check- Out Time Diagnosis GENERAL OFFICE VISIT BERTRAND OSHEA M.D. [facility]-PSYCHIA TRY 9 10:35AM 12:10PM Clinical Notes Includes: Clinical Notes from this encounter No Clinical Notes Recorded
--- OUTSIDE RECORDS SUMMARY | 2025-02-19 17:47 | XMS_ITS ---
Care Plan - [facility] Created on: February 19, 2025 GLORY GARCIA : 1975 Sex: Female Author Organization [facility] Address [address] [place] [address] Phone Care Team Providers Care Freezer Worker Name Role Phone JAMMIE DAMON MD Primary Care Provider
--- OUTSIDE RECORDS SUMMARY | 2025-02-19 17:47 | XMS_ITS | Clinical Summary ---
Author Organization [facility] Address [address] [place] [address] Phone Care Team Providers Care Development Assistant Name Role Phone JAMMIE DAMON MD Primary Care Provider Reason for Visit and Chief Complaint * PHONE CALL Problems Includes: Problems addressed during this encounter and other active Problems All Visits Onset Date Resolved Date Provider Condition S tatus DEPRESSIVE DISORDER NEC 02/27/2009 MELANIE TY MARISOL RECINOS Active Last Documented On 9 7:07PM ; [facility] Plan of Treatment No Plan of [...] Active Last Documented On 9 3:35PM ; [facility] Encounters Encounter Provider Location Date Check-In Time Check-Out Time Diagnosis * PHONE CALL AMY Oneill [facility] ORTHO-OP 4 3:47PM 11:59PM Clinical Notes Includes: Clinical Notes from this encounter No Clinical Notes Recorded
--- OUTSIDE RECORDS SUMMARY | 2025-02-19 17:47 | XMS_ITS | Clinical Summary ---
Author Organization [facility] Address [address] [place] [address] Phone Care Team Providers Care Wharf Operator Name Role Phone JAMMIE DAMON MD Primary Care Provider Reason for Visit and Chief Complaint CHART UPDATE Problems Includes: Problems addressed during this encounter and other active Problems All Visits Onset Date Resolved Date Provider Condition S tatus DEPRESSIVE DISORDER NEC 02/27/2009 MELANIE TY MARISOL RECINOS Active Last Documented On 9 7:07PM ; [facility] Plan of Treatment No Plan [...] 02/27/2009 Last Documented On 9 12:17PM ; [facility] Abnormal diet NEED TO 02/27/2009 Last Documented On 9 12:17PM ; [facility] Alcohol SOMETIMES 02/27/2009 Last Documented On 9 12:17PM ; [facility] Currently 02/27/2009 Last Documented On 9 12:17PM ; [facility] Exercise frequency SHOULD 02/27/2009 Last Documented On 9 12:17PM ; [facility] Smoking Status Unknown Medical History Includes: Medical History addressed during this encounter Description Last Updated No history of arthritis 02/27/2009 Last Documented On 9 12:17PM ; [facility] No history of cancer 02/27/2009 Last Documented On 9 12:17PM ; [facility] No history of convulsive disorder 2008 Last Documented On 9 12:17PM ; [facility] No history of diabetes mellitus 02/28/20 Last Documented On 9 12:17PM ; [facility] No history of hypertension 02/27/2009 Last Documented On 9 12:17PM ; [facility] No history of stroke syndrome 02/27/2009 Last Documented On 9 12:17PM ; [facility] No history of venereal disease 9 Last Documented On 9 12:17PM ; [facility] Family History Includes: Family History addressed during this encounter Description Last Updated Heart disease 02/27/2009 Last Documented On 9 12:17PM ; [facility] Review of Systems Includes: Review of Systems [...] Active Last Documented On 9 3:35PM ; [facility] Encounters Encounter Provider Location Date Check-In Time Check-Out Time Diagnosis CHART UPDATE JAMMIE DAMON MD [facility] 03/10/20 09 12:15PM 11:59PM Clinical Notes Includes: Clinical Notes from this encounter No Clinical Notes Recorded
--- OUTSIDE RECORDS SUMMARY | 2025-02-19 17:47 | XMS_ITS | Clinical Summary ---
Author Organization [facility] Address [address] [place] [address] Phone Care Team Providers Care Machine Helper Name Role Phone JAMMIE DAMON MD Primary Care Provider Reason for Visit and Chief Complaint CHART UPDATE Problems Includes: Problems addressed during this encounter and other active Problems Current Visit Onset Date Resolved Date Provider Laura bansal Status DEPRESSIVE DISORDER NEC 02/27/2009 MELANIE TY MARISOL RECINOS Active Last Documented On 9 7:07PM ; [facility] Plan of Treatment No Plan of [...] 02/27/2009 Last Documented On 9 3:35PM ; [facility] Abnormal diet NEED TO 02/27/2009 Last Documented On 9 3:35PM ; [facility] Alcohol SOMETIMES 02/27/2009 Last Documented On 9 3:35PM ; [facility] Currently 02/27/2009 Last Documented On 9 3:35PM ; [facility] Exercise frequency SHOULD 02/27/2009 Last Documented On 9 3:35PM ; [facility] Smoking Status Unknown Medical History Includes: Medical History addressed during this encounter Description Last Updated No history of arthritis 02/27/2009 Last Documented On 9 3:35PM ; [facility] No history of cancer 02/27/2009 Last Documented On 9 3:35PM ; [facility] No history of convulsive disorder 2008 Last Documented On 9 3:35PM ; [facility] No history of diabetes mellitus 02/28/20 09 Last Documented On 9 3:35PM ; [facility] No history of hypertension 02/27/2009 Last Documented On 9 3:35PM ; [facility] No history of stroke syndrome 02/27/2009 Last Documented On 9 3:35PM ; [facility] No history of venereal disease 9 Last Documented On 9 3:35PM ; [facility] Family History Includes: Family History addressed during this encounter Description Last Updated Heart disease 02/27/2009 Last Documented On 9 3:35PM ; [facility] Review of Systems Includes: Review of [...] Active Last Documented On 9 3:35PM ; [facility] Encounters Encounter Provider Location Date Check-In Time Check-Out Time Diagnosis CHART UPDATE [facility] 02/28/20 09 7:00PM 11:59PM Clinical Notes Includes: Clinical Notes from this encounter No Clinical Notes Recorded
--- OUTSIDE RECORDS SUMMARY | 2025-02-19 17:47 | XMS_ITS | Clinical Summary ---
Author Organization [facility] Address [address] [place] [address] Phone Care Team Providers Care Analysis Lead Name Role Phone JAMMIE DAMON MD Primary Care Provider Reason for Visit and Chief Complaint GENERAL OFFICE VISIT Problems Includes: Problems addressed during this encounter and other active Problems All Visits Onset Date Resolved Date Provider Condition S tatus DEPRESSIVE DISORDER NEC 02/27/2009 MELANIE TY MARISOL RECINOS Active Last Documented On 9 7:07PM ; [facility] Plan of Treatment No Plan [...] Active Last Documented On 9 3:35PM ; [facility] Clinical Notes Includes: Clinical Notes from this encounter No Clinical Notes Recorded
--- OUTSIDE RECORDS SUMMARY | 2025-02-19 17:47 | XMS_ITS ---
Author Organization 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 Plan of Treatment No Plan of [...] 02/27/2009 Last Documented On 9 3:35PM ; [facility] Abnormal diet NEED TO 02/27/2009 Last Documented On 9 3:35PM ; [facility] Alcohol SOMETIMES 02/27/2009 Last Documented On 9 3:35PM ; [facility] Currently 02/27/2009 Last Documented On 9 3:35PM ; [facility] Exercise frequency SHOULD 02/27/2009 Last Documented On 9 3:35PM ; [facility] Smoking Status Unknown Medical History Includes: Medical History in patient's chart Description Last Updated No history of arthritis 02/27/2009 Last Documented On 9 3:35PM ; [facility] No history of cancer 02/27/2009 Last Documented On 9 3:35PM ; [facility] No history of convulsive disorder 2008 Last Documented On 9 3:35PM ; [facility] No history of diabetes mellitus 02/28/20 Last Documented On 9 3:35PM ; [facility] No history of hypertension 02/27/2009 Last Documented On 9 3:35PM ; [facility] No history of stroke syndrome 02/27/2009 Last Documented On 9 3:35PM ; [facility] No history of venereal disease 9 Last Documented On 9 3:35PM ; [facility] Family History Includes: Family History in patient's chart Description Last Updated Heart disease 02/27/2009 Last Documented On 9 3:35PM ; [facility] Review of Systems Review of Systems not [...] Active Last Documented On 9 3:35PM ; [facility] Clinical Notes Includes: Signed Clinical Notes starting from 11/13/2022 No Clinical Notes Recorded
== END 2025-02-19 16:20 | disposition home or self-care (01) ==
PROVIDERS: Emergency Provider Nurse Practitioner
DX: J10.1 Influenza due to other identified influenza virus with other respiratory manifestations (principal); Z20.822 Contact with and (suspected) exposure to COVID-19; J44.9 Chronic obstructive pulmonary disease, unspecified; Z87.891 Personal history of nicotine dependence; Z86.16 Personal history of COVID-19
CPT/HCPCS: 71046; 87081; 87426; 87804; 87880; 99213; G0463